=== PATIENT | male | born 1950 | race Caucasian/White ===

== ENCOUNTER 2018-05-01 11:26 | Inpatient (IN) | payer MEDICARE, OTHER ==
[~2018-05-01] VITALS: Ht 170.2 cm; Wt 70.5 kg
[2018-05-01] MEDS ORDERED: SODIUM CHLORIDE 0.9% 1L BAG IV* STA (11:53)
[2018-05-01] MEDS ORDERED: ACETAMINOPHEN 325 MG TAB PO ONE (12:00)
[2018-05-01] MEDS ORDERED: SOD CHLORIDE 0.9% 0 ML IV ONE (12:10)
--- NOTE | 2018-05-01 12:15 | ERD ---
ER Documentation Chief Complaint Chief Complaint BIB RA FOR EVAL LOW O2 SAT AFTER HD. 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 During dialysis, the patient's temperature was found to be at 103 F. His O2 saturation was reportedly at 84% on room air. The patient's primary care physician was called who recommended transfer to the hospital. The patient is currently alert and oriented x1. He is typically fully oriented. The patient does not endorse any complaints at this time, but history and physical is limited secondary to altered mentation. ROS Review of systems limited secondary to altered mentation Medications Home Meds Reported Medications Polyvinyl Alcohol (Tears Again) 15 Ml Drops, 15 ML OP DAILY PRN for DRY EYES, BOTTLE 05/01/18 Ondansetron Hcl* (Zofran*) 4 Mg Tab, 4 MG PO Q6H PRN for NAUSEA AND OR VOMITING, TAB 05/01/18 Ascorbic Acid* (Vitamin C*) 500 Mg Capsule.sa, 500 MG PO DAILY, CAP 05/01/18 Acetaminophen* (Acetaminophen*) 500 MG Extra Strength Tablet, 1000 MG PO Q4H PRN for MILD PAIN(1-3)OR ELEVATED TEMP, TAB 05/01/18 Acetaminophen* (Acetaminophen*) 325 Mg Tablet, 325 MG PO Q4H PRN for PAIN AND OR ELEVATED TEMP, #30 TAB 05/01/18 Levothyroxine Sodium* (Levoxyl*) 50 Mcg Tablet, 50 MCG PO BEFORE BREAKFAST, #30 TAB 05/01/18 Sevelamer Carbonate* (Renvela*) 800 Mg Tablet, 0.8 GM PO WITH MEALS, TAB 05/01/18 Multivitamins* (Theragran*) 1 Tab Tab, 1 TAB PO DAILY, TAB 05/01/18 Atorvastatin Calcium* (Atorvastatin Calcium*) 20 Mg Tablet, 20 MG PO QHS, #30 TAB 05/01/18 Lisinopril* (Lisinopril*) 20 Mg Tablet, 20 MG PO DAILY for MON,WED,SAT,SUN., #30 TAB 05/01/18 Atorvastatin Calcium* (Atorvastatin Calcium*) 20 Mg Tablet, 20 MG PO QHS, #30 TAB 05/01/18 Insulin Glargine* (Lantus*) 100 Unit/Ml Soln, 10 UNIT SC QHS, #1 VIAL 05/01/18 Ferrous Sulfate* (Ferrous Sulfate*) 325 Mg Tabec, 325 MG PO DAILY, TAB 05/01/18 Cranberry Extract (Cranberry) 425 Mg Capsule, 425 MG PO DAILY, CAP 05/01/18 Carvedilol* (Coreg*) 6.25 Mg Tablet, 6.25 MG PO BID for TUE,GUERO,SAT, #60 TAB 05/01/18 Docusate Sodium* (Docusate Sodium*) 100 Mg Capsule, 200 MG PO HS, #60 CAP 05/01/18 Cyanocobalamin/FA/Pyridoxine (B Complex-Folic Acid Tablet) 1 Each Tablet, 1 TAB PO DAILY, TAB 05/01/18 Aspirin* (Aspirin* Chew) 81 Mg Tab.chew, 81 MG PO DAILY, TAB.CHEW 05/01/18 Allergies Allergies: Coded Allergies: No Known Allergy (Unverified , 05/01/18) PMhx/Soc History of Surgery: Yes (R BKA, CABG) Anesthesia Reaction: No Hx Neurological Disorder: No Hx Cardiac Disorders: Yes (Tension, hyperlipidemia, diabetes, CAD with previous [place] sp CABG) Hx Miscellaneous Medical Probl: Yes (ESRD on HD, R BKA) FmHx Family History: diabetes Physical Exam Vitals Vital Signs Date Temp Pulse Resp B/P (MAP) Pulse Ox O2 O2 Flow FiO2 Time Delivery Rate 05/01/18 98.4 76 20 98/34 (55) 100 Nasal 2.0 16:01 Cannula 05/01/18 2.0 15:55 05/01/18 Nasal 2 13:03 Cannula 05/01/18 100.4 80 20 90/20 (43) 96 11:39 Physical Exam Const: No apparent distress, well-developed, well-nourished Head: Normocephalic, Atraumatic Eyes: Normal Conjunctiva. Extraocular movements intact. Pupils equal, round and reactive to light ENT: Normal External Ears, Nose and Mouth. Neck: Full range of motion. No meningismus. Resp: Bibasilar rales. No wheezes. No respiratory distress. Cardio: Regular rate and rhythm. No murmurs, rubs or gallops. Right chest tunneled dialysis catheter without erythema or induration or purulence or fluctuance. Abd: Soft, non tender, non distended. Normal bowel sounds Skin: No petechiae or rashes Back: No midline tenderness. No CVA tenderness Ext: No cyanosis, or edema. Right BKA. Neur: Awake and alert, oriented 1. Cranial nerves intact. No facial droop. Normal strength, sensation and coordination. Result Diagram: 05/01/18 1147 05/01/18 1147 Results 24 hrs Laboratory Tests Test 05/01/18 11:47 05/01/18 12:11 White Blood Count 10.4 10^3/ul Red Blood Count 2.01 10^6/ul Hemoglobin 6.8 g/dl Hematocrit 20.0 % Mean Corpuscular Volume 99.5 fl Mean Corpuscular Hemoglobin 33.8 pg Mean Corpuscular Hemoglobin Concent 34.0 g/dl Red Cell Distribution Width 16.5 % Platelet Count 133 10^3/UL Mean Platelet Volume 9.8 fl Immature Granulocytes % 1.900 % Neutrophils % 87.7 % Segmented Neutrophils % (Manual) 69 % Band Neutrophils % (Manual) 23 % Lymphocytes % 5.8 % Lymphocytes % (Manual) 5 % Reactive Lymphocytes % (Manual) 1 % Monocytes % 4.3 % Monocytes % (Manual) 2 % Eosinophils % 0.2 % Basophils % 0.1 % Nucleated Red Blood Cells % 0.0 /100WBC Immature Granulocytes # 0.200 10^3/ul Neutrophils # 9.1 10^3/ul Neutrophils # (Manual) 7.4 10^3/ul Band Neutrophils # 2.3 10^3/ul Lymphocytes (Manual) 0.5 10^3/ul Lymphocytes # 0.6 10^3/ul Reactive Lymphocytes # 0.1 10^3/ul Monocytes # 0.5 10^3/ul Monocytes # (Manual) 0.2 10^3/ul Eosinophils # 0.0 10^3/ul Basophils # 0.0 10^3/ul Nucleated Red Blood Cells # 0.0 10^3/ul Pathologist Review (Hematology) Platelet Estimate NORMAL Polychromasia 2+ Hypochromasia 1+ Anisocytosis 2+ Microcytosis 2+ Prothrombin Time 14.8 Sec Prothrombin Time Ratio 1.2 INR International Normalized Ratio 1.15 Activated Partial Thromboplast Time 32.6 Sec Path Consult Signing Pathologist FARIDEH JOSEPH MD Sodium Level 138 mmol/L Potassium Level 3.2 mmol/L Chloride Level 91 mmol/L Carbon Dioxide Level 32 mmol/L Anion Gap 15 Blood Urea Nitrogen 41 mg/dl Creatinine 5.30 mg/dl Est Glomerular Filtrat Rate mL/min 11 mL/min Glucose Level 102 mg/dl Calcium Level 9.3 mg/dl Total Bilirubin 0.4 mg/dl Direct Bilirubin 0.00 mg/dl Indirect Bilirubin 0.4 mg/dl Aspartate Amino Transf (AST/SGOT) 20 IU/L Alanine Aminotransferase (ALT/SGPT) 37 IU/L Alkaline Phosphatase 202 IU/L Troponin I 1.520 ng/ml Total Protein 8.0 g/dl Albumin 4.4 g/dl Globulin 3.60 g/dl Albumin/Globulin Ratio 1.22 POC Venous Lactate 1.6 mmol/L Current Medications Medications Dose Sig/Jennifer Start Time Status Last (Trade) Ordered Route PRN Stop Time Admin Dose Reason Admin Sodium 2,100 ml BOLUS OVER 2 05/01/18 DC 05/01/18 Chloride HOURS STAT 11:53 05/01/18 12:15 (NS) IV* 11:55 650 mg ONCE ONCE 05/01/18 DC 05/01/18 Acetaminophen PO 12:00 05/01/18 12:16 (Tylenol 12:01 Tab) Sodium 0 ml @ 0 Q0M ONCE 05/01/18 DC 05/01/18 Chloride mls/hr IV 12:10 05/01/18 12:10 12:18 Vancomycin 250 ml @ ONCE ONCE 05/01/18 DC 05/01/18 HCl 125 mls/hr IVPB 13:00 05/01/18 13:32 14:59 Cefepime HCl 50 ml @ ONCE ONCE 05/01/18 DC 05/01/18 100 mls/hr IVPB 12:30 05/01/18 12:34 12:59 IV Flush 10 ml STK-MED 05/01/18 DC 05/01/18 (NS 10 ml) ONCE .ROUTE 13:03 05/01/18 13:26 13:04 Sodium 100 ml @ ud STK-MED 05/01/18 DC 05/01/18 Chloride ONCE .ROUTE 13:03 3/7/19 13:26 13:04 Iodixanol 100 ml STK-MED 05/01/18 DC 05/01/18 (Visipaque ONCE .ROUTE 13:03 05/01/18 13:26 Locm) 13:04 Ondansetron 4 mg ER BRIDGE 05/01/18 HCl (Zofran PRN IV 14:00 05/02/18 Inj) NAUSEA/VOMITI 13:59 NG 650 mg ER BRIDGE 05/01/18 Acetaminophen PRN PO 14:00 05/02/18 (Tylenol .MILD PAIN 13:59 Tab) 1-3 OR TEMP IV Flush 3 ml PER 05/01/18 (NS 3 ml) PROTOCOL IV 16:00 Procedures/MDM MDM The patient's presentation warrants further investigation. Previous medical records, if available, were reviewed. LABS The patient's laboratory testing was obtained and reviewed. No emergent treatment was required unless described below. CBC: No leukocytosis, but significant bandemia, concerning for an infection. Normocytic anemia requiring transfusion. Thrombocytopenia. Chemistry: No E/o severe acidosis or liver disease or diabetic ketoacidosis. Metabolic alkalosis likely related to his end-stage renal disease. PT/INR: No E/o significant coagulopathy Lactate: No E/o severe sepsis Troponin: Elevated, though this is in the setting of end-stage renal disease Urine: Not sent due to end-stage renal disease Cultures: Sent EKG EKG read by me: Rate/Rhythm: Regular rate and rhythm at a rate of 80 bpm Intervals: Normal QRS. QT interval is less than 50% of the RR interval. Nonspecific intraventricular block with a slightly widened QRS. [place]: Left shifted Impression: No evidence of acute ischemia or emergent arrhythmia. IMAGING Imaging and Radiology interpretation reviewed. CXR FINDINGS: The heart is enlarged. The thoracic aorta is calcified. The patient is status post sternotomy. There is a right-sided Perma-Cath in place. There is a left lower lobe infiltrate and atelectasis. There is no pleural effusion or pneumothorax. IMPRESSION: Mild cardiomegaly. Calcified aorta consistent with atherosclerotic disease. Left lower lobe infiltrate and atelectasis. Electronically viewed and signed by .Emeka Westbrook MD, MD on 05/01/2018 12:48 CTA Chest FINDINGS: The pulmonary arteries are normal with no filling defect or lack of enhancement to suggest pulmonary artery embolism. There is air space disease in the left lung base posteriorly and laterally consistent with atelectasis or pneumonia. The lungs are otherwise clear with no other airspace or interstitial disease. There is no pulmonary nodule or mass lesion. There is no pneumothorax. There is no mediastinal or hilar lymphadenopathy or mass. There is no pleural effusion. There is no pericardial effusion. The thoracic aorta is not dilated. There is calcification in the aorta consistent with atherosclerosis. The heart is enlarged. There is coronary artery calcification. There are sternal wires and mediastinal clips. There is a right internal jugular vein tunneled dialysis catheter with the tip in the cavoatrial junction. Images through the upper abdomen demonstrate normal visualized portions of the liver, spleen, and adrenals. The osseous structures are normal with no fracture or lytic lesion. IMPRESSION: 1. Normal CT pulmonary angiogram with no evidence of pulmonary artery embolism. 2. Atelectasis or pneumonia at the left lung base posteriorly and laterally. 3. Atherosclerosis. 4. Cardiomegaly. 5. Coronary artery calcification. 6. Previous median sternotomy. 7. Tunneled dialysis catheter in satisfactory position. 8. Otherwise unremarkable study. Electronically viewed and signed by Davide Garcia MD, on 05/01/2018 13:55 CT Head FINDINGS: There is no intracranial hemorrhage, mass effect, or midline shift. N o extra-axial fluid collection is seen. The ventricles and sulci are age appropriate. Mild diffuse volume loss is present. Subtle decreased attenuation is noted in the bilateral subcortical white matter, centrum semiovale and periventricular white matter compatible with mild chronic microvascular ischemic disease. Moderate vascular calcifications are present of the bilateral intracranial internal carotid arteries and the vertebral arteries. The visualized scalp and calvarium are normal. The bilateral orbits are normal. The bilateral paranasal sinuses, mastoid air cells and middle ear cavities are clear. IMPRESSION: No evidence of acute intracranial hemorrhage, infarcts, or acute intracranial pathology. Normal noncontrast head CT. Electronically viewed and signed by .Meli Owens MD, MD on 05/01/2018 13:34 TREATMENT/DISPOSITION The patient presents for fever, altered mentation, shortness of breath and hypoxia beginning this morning. Given his fever, a septic workup was completed. The patient does have a bandemia. He does meet criteria for a systemic inflammatory response syndrome and he does have findings concerning for a pneumonia, which meets criteria for sepsis. The patient's lactic acid is unremarkable. There is no evidence of endorgan damage. The patient does not meet criteria for severe sepsis. That said, IV fluids and antibiotics were initiated in this patient. The patient is on dialysis and is at risk for bacteremia. That said, I do have higher suspicion for pneumonia then I do bacteremia. The patient was also found to be anemic. The patient was transfused 1 unit of packed red blood cells emergently. The patient may be assessed for this further in the hospital. This could be related to his end-stage renal disease as well. The patient's mentation improved with IV fluid resuscitation and blood transfusion. I have very low suspicion for meningitis or encephalitis. There is no evidence of cerebral ischemia or intracranial hemorrhage on CT. The patient does have an elevated troponin, which can be assessed further in the hospital. The patient does not have symptoms concerning for acute coronary syndrome, and his EKG did not reveal findings of acute ischemia. I suspect that the patient's elevated troponin is related to his end-stage renal disease. The patient does have metabolic abnormalities including hypokalemia and a metab olic alkalosis. I suspect that this too is related to his end-stage renal disease and his dialysis sessions. Cardiology and nephrology will require consultation in the hospital. SEPSIS NOTE SIRS Criteria: Fever, bandemia Infectious source: Pneumonia End organ damage indicated by: None SEPSIS MANAGEMENT Time to recognize sepsis: Upon arrival. Time to recognize severe sepsis: No severe sepsis at this time. Time to recognize septic shock: No septic shock at this time. 3 HOUR BUNDLE Blood cultures x 2 before abx: Yes 30 ml/kg NS bolus completed Initial lactate 1.6 Repeat lactate not indicated SEPTIC SHOCK ASSESSMENT: NO lactic acid > 4.0 NO persistent hypotension (SBP < 90 or 40 mmHg drop, MAP < 65) despite 30 L/kg IV fluid bolus CRITICAL CARE NOTE Time: 34 minutes excluding all billable procedures. Treatments/Evaluations: The patient was at risk of hemodynamic compromise. Timing of critical care involved close serial monitoring, evaluation of the patient's medical record including previous records & current laboratory/imaging studies, potential interventions for prevention of hemodynamic/ cardiopulmonary/ neurologic compromise, maintaining tight fluid balance, and any discussions with the family and/or consultants regarding the patient's status and prognosis. ADMISSION At this time, I feel that the patient requires admission for further evaluation and management. The patient will be admitted to panel in accordance with the patient's insurance. The patient was accepted by Dr. Davies at 1:25 PM on May 01, 2018. Disclaimer: Inadvertent spelling and grammatical errors are likely due to EHR/dictation software use and do not reflect on the overall quality of patient care. Note that the electronic time recorded on this note does not necessarily r eflect the actual time of the patient encounter. Departure Diagnosis: Primary Impression: Sepsis Sepsis type: sepsis due to unspecified organism Qualified Codes: A41.9 - Sepsis, unspecified organism Additional Impressions: Fever Fever type: unspecified Qualified Codes: R50.9 - Fever, unspecified Altered mental status Altered mental status type: unspecified Qualified Codes: R41.82 - Altered mental status, unspecified Symptomatic anemia Thrombocytopenia Left lower lobe pneumonia Pneumonia type: due to unspecified organism Qualified Codes: J18.1 - Lobar pneumonia, unspecified organism Bandemia Metabolic alkalosis End stage renal disease on dialysis Hypokalemia Elevated troponin I level Condition: Serious MOLLY DOS SANTOS MD May 01, 2018 12:07
[2018-05-01] MEDS ORDERED: CEFEPIME 1GM/50 ML (PMX) 50 ML IVPB ONE (12:30)
[2018-05-01] MEDS ORDERED: ONDA4TAB13 PO (12:44)
[2018-05-01] MEDS ORDERED: ASPI-903 PO (12:44)
[2018-05-01] MEDS ORDERED: LANT3I SC (12:44)
[2018-05-01] MEDS ORDERED: ASCO500C7 PO (12:44)
[2018-05-01] MEDS ORDERED: LISI-471 PO (12:44)
[2018-05-01] MEDS ORDERED: ATOR20TA38 PO (12:44)
[2018-05-01] MEDS ORDERED: CARV6.25 PO (12:44)
[2018-05-01] MEDS ORDERED: ACET-141 PO (12:44)
[2018-05-01] MEDS ORDERED: MULTI PO (12:44)
[2018-05-01] MEDS ORDERED: FER325 PO (12:44)
[2018-05-01] MEDS ORDERED: LEVO50TA71 PO (12:44)
[2018-05-01] MEDS ORDERED: SEVE800T7 PO (12:44)
[2018-05-01] MEDS ORDERED: CYAN1TAB20 PO (12:44)
[2018-05-01] MEDS ORDERED: DOCU-159 PO (12:44)
[2018-05-01] MEDS ORDERED: ACET325T45 PO (12:44)
[2018-05-01] MEDS ORDERED: CRAN425C6 PO (12:44)
[2018-05-01] MEDS ORDERED: POLY15DR25 OP (12:45)
[2018-05-01] MEDS ORDERED: VANCOMYCIN 1 GM (PMX) 250 ML IVPB ONE (13:00)
[2018-05-01] MEDS ORDERED: IODIXANOL LOCM 100 ML BTL ONE (13:03)
[2018-05-01] MEDS ORDERED: SOD CHLORIDE 0.9% 100 ML ONE (13:03)
[2018-05-01] MEDS ORDERED: ONDANSETRON 4 MG INJ IV PRN (14:00)
[2018-05-01] MEDS ORDERED: ACETAMINOPHEN 325 MG TAB PO PRN (14:00)
--- NOTE | 2018-05-01 15:36 | HP ---
Date/Time of Note Date/Time of Note DATE: 05/01/18 TIME: 15:36 Assessment/Plan VTE Prophylaxis Pharmacological prophylaxis: NA/contraindicated Pharm contraindication: anticoag not tolerated Lines/Catheters IV [facility] Assessment/Plan Hospital Course 67-year-old male with comorbidities including end-stage renal disease on hemodialysis Tuesdays//Saturdays, hypertension, diabetes mellitus, an emia, prostatic hypertrophy, hypothyroidism, and CAD status post coronary artery bypass grafting. The patient was brought in from a intermediate facility because of fevers and diaphoresis with evidence of hypoxia at the intermediate facility. The patient was noticed to have elevated troponins, anemia, and left sided infiltrate on chest x-ray in the emergency room. The patient will be admitted to inpatient setting for further treatment and evaluation. 1. NSTEMI. -Etiology unclear. -Prior history of CAD. Unable to start aspirin because of underlying anemia. -Obtain cardiology consult -Trend troponins -Obtain 2D echocardiogram. 2. Healthcare associated pneumonia. -Continue antimicrobials 3. Acute respiratory failure. -Hypoxic -Most probably secondary to #2. -Continue supplemental oxygen. -Start inhaled bronchodilators. -CTA negative for any PE. 4. Normocytic anemia. -Etiology unclear. -Transfuse blood products. -Obtain stool for OB. -Obtain iron panel. 5. Acute encephalopathy. -Unknown baseline mental status -Most probably toxic metabolic in origin. -Brain CT scan negative. 6. End-stage renal disease on hemodialysis -Obtain nephrology consult. -May need hemodialysis since the patient got IV dye for CTA. 7. Diabetes mellitus. -Start the patient on sliding scale insulin along with pre-meal insulin basal insulin. -Obtain hemoglobin A1c to evaluate the blood glucose control over the past few weeks. 8. History of CAD. -Hold aspirin because of anemia. -Continue statins. -Cardiology follow-up. 9. Hypothyroidism. -Resume Synthroid. 10. Dyslipidemia. -Continue statins. 11. Hypertension. -Hold antihypertensives now since the patient is currently hypotensive. Plan: The patient will be admitted to inpatient telemetry floor. The patient will be started on a renal diet. The patient will be started on DVT prophylaxis (SCD on the left lower extremity ) and gastrointestinal prophylaxis. The patient will remain a full code. Activities will be bedrest. The rest of the patient's management will be based on the clinical course, inputs from consultants, and the results of diagnostic studies. Based on the patient's clinical presentation, he most probably requires at least 2 midnights' stay for further management and evaluation of his clinical pres entation. The patient was seen in collaboration with Dr. Davies. Result Diagram: 05/01/18 1147 05/01/18 1147 Results 24hrs Laboratory Tests Test 05/01/18 11:47 05/01/18 12:11 White Blood Count 10.4 Red Blood Count 2.01 L Hemoglobin 6.8 *L Hematocrit 20.0 L Mean Corpuscular Volume 99.5 Mean Corpuscular Hemoglobin 33.8 H Mean Corpuscular Hemoglobin Concent 34.0 Red Cell Distribution Width 16.5 H Platelet Count 133 L Mean Platelet Volume 9.8 Immature Granulocytes % 1.900 H Neutrophils % 87.7 H Segmented Neutrophils % (Manual) 69 Band Neutrophils % (Manual) 23 H Lymphocytes % 5.8 L Lymphocytes % (Manual) 5 L Reactive Lymphocytes % (Manual) 1 H Monocytes % 4.3 Monocytes % (Manual) 2 Eosinophils % 0.2 Basophils % 0.1 Nucleated Red Blood Cells % 0.0 Immature Granulocytes # 0.200 H Neutrophils # 9.1 H Neutrophils # (Manual) 7.4 Band Neutrophils # 2.3 H Lymphocytes (Manual) 0.5 L Lymphocytes # 0.6 L Reactive Lymphocytes # 0.1 H Monocytes # 0.5 Monocytes # (Manual) 0.2 L Eosinophils # 0.0 Basophils # 0.0 Nucleated Red Blood Cells # 0.0 Pathologist Review (Hematology) Platelet Estimate NORMAL Polychromasia 2+ Hypochromasia 1+ Anisocytosis 2+ Microcytosis 2+ Prothrombin Time 14.8 Prothrombin Time Ratio 1.2 INR International Normalized Ratio 1.15 Activated Partial Thromboplast Time 32.6 Path Consult Signing Pathologist FARIDEH JOSEPH MD Sodium Level 138 Potassium Level 3.2 L Chloride Level 91 L Carbon Dioxide Level 32 H Anion Gap 15 H Blood Urea Nitrogen 41 H Creatinine 5.30 H Est Glomerular Filtrat Rate mL/min 11 L Glucose Level 102 Calcium Level 9.3 Total Bilirubin 0.4 Direct Bilirubin 0.00 Indirect Bilirubin 0.4 Aspartate Amino Transf (AST/SGOT) 20 Alanine Aminotransferase (ALT/SGPT) 37 Alkaline Phosphatase 202 H Troponin I 1.520 *H Total Protein 8.0 Albumin 4.4 Globulin 3.60 H Albumin/Globulin Ratio 1.22 POC Venous Lactate 1.6 HPI/ROS Admit Date/Time Admit Date/Time Hx of Present Illness Reason for admission: Transferred from a intermediate facility because of febrile illness and hypoxia. Elevated troponins and anemia on ER workup. Consultants 1. René Garcia, , Cardiology. 2. Carson Davis DO, Nephrology. This is a 67-year-old male with comorbidities including hypertension, diabetes mellitus type 2, history of ESRD on hemodialysis, prostatic hypertrophy, hypothyroidism, and chronic anemia who went for scheduled hemodialysis today. The patient went back from the dialysis clinic to his SNF with fevers and diaphoresis. The patient had a recorded temperature of 103 F with oxygen saturation of 84% on room air with a blood pressure of 119/57 and pulse of 86. The patient's primary care physician was informed by the nursing staff and the nursing staff was instructed to take the patient to the nearest emergency room. The patient's baseline mental status is unclear. It was unable to elicit specific details from the patient. The patient denied any chest pain or dyspnea. The patient complained of feeling tired. The patient denied any upper or lower gastrointestinal bleeding. The patient complained of a productive cough that has been going on for 1 month. The patient denied any nausea, vomiting, abdominal pain, or diarrhea. In the emergency room, the patient was noticed to have a troponin level of 1.520. Patient did not have any underlying leukocytosis. The patient had bandemia. The patient had a temperature of 100.4. Patient's chest x-ray was showing left lower lobe infiltrate/atelectasis. The patient underwent a CT angiogram of the chest that was showing no evidence of any PE. However it showed atelectasis/pneumonia at the left lung base posteriorly and laterally. The patient's brain CT scan was negative for any acute findings. The patient was noticed to have anemia with a hemoglobin and hematocrit of 6.8 and 20.0 respectively. The patient was started on blood transfusion. The patient was treated with IV cefepime and vancomycin in the emergency room. ROS Subjective hx not possible: other (Patient not a good historian.) PMH/Family/Social Past Medical History 1. Type 2 diabetes mellitus. 2. CAD status post CABG. 3. End-stage renal disease on hemodialysis 4. Anemia. 5. Hypertension. 6. Diabetic foot ulcer. 7. Dyslipidemia. 8. Hypothyroidism. Medications Current Medications Ondansetron HCl (Zofran Inj) 4 mg ER BRIDGE PRN IV NAUSEA/VOMITING; Start 05/01/18 at 14:00; Stop 05/02/18 at 13:59 Acetaminophen (Tylenol Tab) 650 mg ER BRIDGE PRN PO .MILD PAIN 1-3 OR TEMP; Start 05/01/18 at 14:00; Stop 05/02/18 at 13:59 Coded Allergies: No Known Allergy (Unverified , 05/01/18) Past Surgical History 1. Coronary artery bypass grafting. 2. Right below-knee amputation Social History The patient is a long-term resident. Alcohol Use: none Smoking Status: Never smoker Drug Use: none Exam/Review of Systems Vital Signs Vitals Vital Signs Date Temp Pulse Resp B/P (MAP) Pulse Ox O2 O2 Flow FiO2 Time Delivery Rate 05/01/18 Nasal 2 13:03 Cannula 05/01/18 100.4 80 20 90/20 (43) 96 11:39 Exam Exam General: Adequately build 67 year-old male lying in bed in no apparent distress. HEENT: Normocephalic, atraumatic. Eyes: Anicteric sclerae, conjunctivae clear. ENT: Nasal septum is midline, oral mucosa is dry. Neck supple, no JVD noticed. Respiratory: Bilaterally diminished breath sounds. No use of accessory muscles o f respiration. No adventitious breath sounds. Cardiovascular: S1, S2 heard. Regular rate and rhythm. Abdomen: Soft, nontender, and nondistended. Bowel sounds positive in all 4 quadrants. Genitourinary: Deferred. Extremities: No cyanosis, no clubbing, no edema. Right lower extremity below- knee amputation. Neurologic: The patient is awake and alert. Oriented x1. Skin: Normal skin turgor. No skin rashes. YOSEF MILLER NP May 01, 2018 15:36
[2018-05-01] MEDS ORDERED: NACL 0.9% 3 ML SYG IV SCH (16:00)
--- NOTE | 2018-05-01 17:08 | CONS ---
Assessment/Plan Assessment/Plan Hospital Course (Demo Recall) SIRS Borderline hypotension Elevated troponin Acute blood loss anemia End-stage renal disease on hemodialysis Diabetes History of open heart surgery -Patient with not feeling well, febrile during hemodialysis. Patient found to be severely anemic, febrile with blood pressure on the lower side -We will continue with blood transfusion given hypotension and elevated troponin -No aspirin the current time given anemia, no beta-ralph given low blood pressure. Increase statin dose -Check serial cardiac enzymes, echocardiogram, telemetry monitoring. Consultation Date/Type/Reason Admit Date/Time Type of Consult Cardiology Reason for Consultation Elevated troponin Date/Time of Note DATE: 05/01/18 TIME: 16:55 Hx of Present Illness This is a 67-year-old male with past medical history of end-stage renal disease on hemodialysis, diabetes, open heart surgery was brought to the emergency room secondary to diaphoresis, fever and not feeling well during hemodialysis. His tory is obtained from medical chart. When patient asked why is he here, he tells me he was not feeling well. He is feeling better now. He denies any chest pain, shortness of breath, palpitations, dizziness. Denies any abdominal pain or cough. 12 point review of systems was performed with all pertinent positives and negatives mentioned above and all else is negative Past Medical History Medical History: diabetes, hypertension, renal disease Home Meds Reported Medications Polyvinyl Alcohol (Tears Again) 15 Ml Drops, 15 ML OP DAILY PRN for DRY EYES, BOTTLE 05/01/18 Ondansetron Hcl* (Zofran*) 4 Mg Tab, 4 MG PO Q6H PRN for NAUSEA AND OR VOMITING, TAB 05/01/18 Ascorbic Acid* (Vitamin C*) 500 Mg Capsule.sa, 500 MG PO DAILY, CAP 05/01/18 Acetaminophen* (Acetaminophen*) 500 MG Extra Strength Tablet, 1000 MG PO Q4H PRN for MILD PAIN(1-3)OR ELEVATED TEMP, TAB 05/01/18 Acetaminophen* (Acetaminophen*) 325 Mg Tablet, 325 MG PO Q4H PRN for PAIN AND OR ELEVATED TEMP, #30 TAB 05/01/18 Levothyroxine Sodium* (Levoxyl*) 50 Mcg Tablet, 50 MCG PO BEFORE BREAKFAST, #30 TAB 05/01/18 Sevelamer Carbonate* (Renvela*) 800 Mg Tablet, 0.8 GM PO WITH MEALS, TAB 05/01/18 Multivitamins* (Theragran*) 1 Tab Tab, 1 TAB PO DAILY, TAB 05/01/18 Atorvastatin Calcium* (Atorvastatin Calcium*) 20 Mg Tablet, 20 MG PO QHS, #30 TAB 05/01/18 Lisinopril* (Lisinopril*) 20 Mg Tablet, 20 MG PO DAILY for MON,WED,FRI,SUN., #30 TAB 05/01/18 Atorvastatin Calcium* (Atorvastatin Calcium*) 20 Mg Tablet, 20 MG PO QHS, #30 TAB 05/01/18 Insulin Glargine* (Lantus*) 100 Unit/Ml Soln, 10 UNIT SC QHS, #1 VIAL 05/01/18 Ferrous Sulfate* (Ferrous Sulfate*) 325 Mg Tabec, 325 MG PO DAILY, TAB 05/01/18 Cranberry Extract (Cranberry) 425 Mg Capsule, 425 MG PO DAILY, CAP 05/01/18 Carvedilol* (Coreg*) 6.25 Mg Tablet, 6.25 MG PO BID for TUE,GUERO,SAT, #60 TAB 05/01/18 Docusate Sodium* (Docusate Sodium*) 100 Mg Capsule, 200 MG PO HS, #60 CAP 05/01/18 Cyanocobalamin/FA/Pyridoxine (B Complex-Folic Acid Tablet) 1 Each Tablet, 1 TAB PO DAILY, TAB 05/01/18 Aspirin* (Aspirin* Chew) 81 Mg Tab.chew, 81 MG PO DAILY, TAB.CHEW 05/01/18 Medications Current Medications Ondansetron HCl (Zofran Inj) 4 mg ER BRIDGE PRN IV NAUSEA/VOMITING; Start 05/01/18 at 14:00; Stop 05/02/18 at 13:59 Acetaminophen (Tylenol Tab) 650 mg ER BRIDGE PRN PO .MILD PAIN 1-3 OR TEMP; Start 05/01/18 at 14:00; Stop 05/02/18 at 13:59 IV Flush (NS 3 ml) 3 ml PER PROTOCOL IV ; Start 05/01/18 at 16:00 Levalbuterol (Xopenex Neb) 0.63 mg Q6H RESP THERAPY HHN ; Start 05/01/18 at 20:00; Status UNV Miscellaneous Information (* Miscellaneous Pharmacy Order) Discontinue current oral sulfonylur... ONCE ONCE XX ; Start 05/01/18 at 16:30; Stop 05/01/18 at 16:31; Status UNV Miscellaneous Information (* Miscellaneous Pharmacy Order) HYPOGLYCEMIA PROTOCOL w... ONCE ONCE XX ; Start 05/01/18 at 16:30; Stop 05/01/18 at 16:31; Status UNV Insulin Aspart (Novolog Insulin Pen) NOVOLOG *MILD* ALGORITHM WITH MEALS BEDTIME SC ; Start 05/01/18 at 18:00; Status UNV Miscellaneous Information (* Miscellaneous Pharmacy Order) Discontinue all previ... ONCE ONCE XX ; Start 05/01/18 at 16:30; Stop 05/01/18 at 16:31; Status UNV Ascorbic Acid (Vitamin C) 500 mg DAILY PO ; Start 05/02/18 at 09:00; Status UNV Atorvastatin Calcium (Lipitor) 20 mg QHS PO ; Start 05/01/18 at 21:00; Status UNV Docusate Sodium (Colace) 200 mg HS PO ; Start 05/01/18 at 21:00; Status UNV Ferrous Sulfate (Ferrous Sulfate (Ec)) 325 mg DAILY PO ; Start 05/02/18 at 09:00; Status UNV Levothyroxine Sodium (Synthroid) 50 mcg BEFORE BREAKFAST PO ; Start 05/02/18 at 07:00; Status UNV Multivitamins Therapeutic (Theragran) 1 tab DAILY PO ; Start 05/02/18 at 09:00; Status UNV Sevelamer Carbonate (Renvela) 0.8 gm WITH MEALS PO ; Start 05/01/18 at 18:00; Status UNV Allergies: Coded Allergies: No Known Allergy (Unverified , 05/01/18) Past Surgical History Past Surgical Hx: other (Open heart surgery, lower extremity amputation) Social History Alcohol Use: none Smoking Status: Never smoker Drug Use: none Exam/Review of Systems Vital Signs Vitals Vital Signs Date Temp Pulse Resp B/P (MAP) Pulse Ox O2 O2 Flow FiO2 Time Delivery Rate 05/01/18 98.3 75 20 92/41 (58) 100 Nasal 2.0 16:48 Cannula Exam Exam Able to answer questions difficulty with history. No apparent distress, receiving blood transfusion in the emergency room Constitutional: alert Head: normocephalic Respiratory: other (Coarse breath sounds bilaterally, no wheezing) Cardiovascular: regular rate and rhythm (S1-S2 heard) Gastrointestinal: soft, non-tender, bowel sounds Extremities: other (Lower extremity amputation) Labs Result Diagram: 05/01/18 1147 05/01/18 1147 Results 24hrs Laboratory Tests Test 05/01/18 11:47 05/01/18 12:11 05/01/18 16:20 05/01/18 16:26 White Blood Count 10.4 Red Blood Count 2.01 L Hemoglobin 6.8 *L Hematocrit 20.0 L Mean Corpuscular 99.5 Volume Mean Corpuscular 33.8 H Hemoglobin Mean Corpuscular 34.0 Hemoglobin Concent Red Cell 16.5 H Distribution Width Platelet Count 133 L Mean Platelet 9.8 Volume Immature 1.900 H Granulocytes % Neutrophils % 87.7 H Segmented 69 Neutrophils % (Manual) Band Neutrophils % 23 H (Manual) Lymphocytes % 5.8 L Lymphocytes % 5 L (Manual) Reactive 1 H Lymphocytes % (Manual) Monocytes % 4.3 Monocytes % 2 (Manual) Eosinophils % 0.2 Basophils % 0.1 Nucleated Red 0.0 Blood Cells % Immature 0.200 H Granulocytes # Neutrophils # 9.1 H Neutrophils # 7.4 (Manual) Band Neutrophils # 2.3 H Lymphocytes 0.5 L (Manual) Lymphocytes # 0.6 L Reactive 0.1 H Lymphocytes # Monocytes # 0.5 Monocytes # 0.2 L (Manual) Eosinophils # 0.0 Basophils # 0.0 Nucleated Red 0.0 Blood Cells # Pathologist Review (Hematology ) Platelet Estimate NORMAL Polychromasia 2+ Hypochromasia 1+ Anisocytosis 2+ Microcytosis 2+ Prothrombin Time 14.8 Prothrombin Time 1.2 Ratio INR International 1.15 Normalized Ratio Activated 32.[address] Time Path Consult FARIDEH JOSEPH Signing Pathologis MD person Sodium Level 138 Potassium Level 3.2 L Chloride Level 91 L Carbon Dioxide 32 H Level Anion Gap 15 H Blood Urea 41 H Nitrogen Creatinine 5.30 H Est Glomerular 11 L Filtrat Rate mL/min Glucose Level 102 Calcium Level 9.3 Total Bilirubin 0.4 Direct Bilirubin 0.00 Indirect Bilirubin 0.4 Aspartate Amino 20 Transf (AST/SGOT) Alanine 37 Aminotransferase ( ALT/SGPT) Alkaline 202 H Phosphatase Troponin I 1.520 *H Total Protein 8.0 Albumin 4.4 Globulin 3.60 H Albumin/Globulin 1.22 Ratio POC Venous Lactate 1.6 1.5 Hemoglobin A1c 6.8 H Imaging Imaging ECG demonstrates sinus rhythm 80 bpm, QRS 128 ms with nonspecific intraventricular conduction delay, nonspecific ST abnormalities Medications Medications Current Medications Ondansetron HCl (Zofran Inj) 4 mg ER BRIDGE PRN IV NAUSEA/VOMITING; Start 05/01/18 at 14:00; Stop 05/02/18 at 13:59 Acetaminophen (Tylenol Tab) 650 mg ER BRIDGE PRN PO .MILD PAIN 1-3 OR TEMP; Start 05/01/18 at 14:00; Stop 05/02/18 at 13:59 IV Flush (NS 3 ml) 3 ml PER PROTOCOL IV ; Start 05/01/18 at 16:00 Levalbuterol (Xopenex Neb) 0.63 mg Q6H RESP THERAPY HHN ; Start 05/01/18 at 20:00; Status UNV Miscellaneous Information (* Miscellaneous Pharmacy Order) Discontinue current oral sulfonylur... ONCE ONCE XX ; Start 05/01/18 at 16:30; Stop 05/01/18 at 16:31; Status UNV Miscellaneous Information (* Miscellaneous Pharmacy Order) HYPOGLYCEMIA PROTOCOL w... ONCE ONCE XX ; Start 05/01/18 at 16:30; Stop 05/01/18 at 16:31; Status UNV Insulin Aspart (Novolog Insulin Pen) NOVOLOG *MILD* ALGORITHM WITH MEALS BEDTIME SC ; Start 05/01/18 at 18:00; Status UNV Miscellaneous Information (* Miscellaneous Pharmacy Order) Discontinue all previ... ONCE ONCE XX ; Start 05/01/18 at 16:30; Stop 05/01/18 at 16:31; Status UNV Ascorbic Acid (Vitamin C) 500 mg DAILY PO ; Start 05/02/18 at 09:00; Status UNV Atorvastatin Calcium (Lipitor) 20 mg QHS PO ; Start 05/01/18 at 21:00; Status UNV Docusate Sodium (Colace) 200 mg HS PO ; Start 05/01/18 at 21:00; Status UNV Ferrous Sulfate (Ferrous Sulfate (Ec)) 325 mg DAILY PO ; Start 05/02/18 at 09:00; Status UNV Levothyroxine Sodium (Synthroid) 50 mcg BEFORE BREAKFAST PO ; Start 05/02/18 at 07:00; Status UNV Multivitamins Therapeutic (Theragran) 1 tab DAILY PO ; Start 05/02/18 at 09:00; Status UNV Sevelamer Carbonate (Renvela) 0.8 gm WITH MEALS PO ; Start 05/01/18 at 18:00; Status UNV René Garcia DO May 01, 2018 17:05
[2018-05-01] MEDS ORDERED: POTASSIUM CHLORIDE (SR) 20 MEQ TAB PO STA (17:17)
[2018-05-01] MEDS ORDERED: EPOETIN 10000 UNITS/1 ML INJ (ESRD) SC ONE (17:30)
[2018-05-01 18:00] VITALS: PULSE 72
[2018-05-01] MEDS: INSULIN ASPART [NOVOLOG] 3 ML PEN SC SCH ×2 (18:00→20:54)
--- NOTE | 2018-05-01 18:06 | CONS ---
DATE OF ADMISSION: 05/01/2018 DATE OF CONSULTATION: 05/01/2018 REASON FOR CONSULTATION: End-stage renal disease. REQUESTING PHYSICIAN: Dr. Ballesteros and nurse practitioner, Andrew Reyna. HISTORY OF PRESENT ILLNESS: This is a 63-year-old male with a past medical history of end-stage caitlyn l disease on dialysis Saturday, , Saturday with access Perm-A-Cath, history of hypertension, d iabetes, anemia, BPH, coronary artery disease, status post coronary artery bypass graft, who presents to [facility] emergency room from his nursing facility due to being very diaphoretic and hy poxemic. The patient upon arrival to emergency room had a chest x-ray which showed evidence of a lef t-sided infiltrate. The patient was started on IV antibiotics in the emergency room. The patient al so noted to have elevated troponin of 1.5 and a hemoglobin of 6.8. 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 The patient states that he did have hemodialysis today. There are no reports of any he moptysis, hematemesis, hematochezia. PAST MEDICAL HISTORY: History of end-stage renal disease, history of anemia, history of mineral bone disorder, history of coronary dyslipidemia, diabetes, BPH. PAST SURGICAL HISTORY: Status post PermCath placement, status post CABG, status post right below kne e amputation. FAMILY HISTORY: No family history of kidney disease. SOCIAL HISTORY: Does not drink, smoke, do drugs. MEDICATIONS: The patient's medications have been reviewed. REVIEW OF SYSTEMS: A 14-point review of systems conducted. Pertinent positives stated in HPI, other de leon, negative. PHYSICAL EXAMINATION: VITAL SIGNS: Blood pressure is 11/36, respiratory rate 20, pulse 71, temperature 98.2. HEENT: Head is normocephalic. NECK: Supple. HEART: Regular rate. LUNGS: Show diminished breath sounds at base. ABDOMEN: Soft, nontender to palpation without rebound or guarding. EXTREMITIES: Negative for clubbing, cyanosis. Positive right below knee amputation. DERMATOLOGIC: No rashes. MUSCULOSKELETAL: No joint effusions. NEUROLOGIC: Limited exam, but no obvious focal deficits. LABORATORY DATA: Shows sodium 133 4.2, chloride 91, bicarbonate 32, BUN 41, creatinine 5.30, hemoglo bin A1c 6.8. White count 10.4, hemoglobin of 6.8, platelet count is 133. IMAGING STUDIES: The patient's chest x-ray shows left lower lobe infiltrate. A CT angio shows a pos sible pneumonia, left base; cardiomegaly; history of sternotomy dialysis catheter. No evidence of PE . ASSESSMENT AND PLAN: This is a 67-year-old male with: 1. End-stage renal disease. The patient is on dialysis Saturday, , Saturday with access Perm -A-Cath. The patient's last hemodialysis was today. Plan is for hemodialysis possibly tomorrow, Sat . We will monitor closely. 2. Anemia. The patient's hemoglobin 6.8. Plan is to give the patient Epogen. We will check an iro n panel. 3. Mineral bone disorder, monitor calcium and phosphorus levels. 4. Hypokalemia. We will replete with potassium chloride. 5. Acute hypoxic respiratory failure, etiology secondary to pneumonia and sepsis. Continue current medical management. Continue supplemental oxygen and bronchodilators. 6. Sepsis, etiology may be secondary to pneumonia. Continue current antibiotic regimen. 7. Elevated troponin, possible non-ST elevation myocardial infarction type 1 versus type 2. We will check serial troponins. Check a 2D echo. Continue medical management. Follow up with cardiology. 8. Acute encephalopathy, etiology is toxic metabolic. Continue to monitor. 9. Diabetes. Continue current insulin regimen. 10. History of coronary artery disease. Continue medical management. 11. Hypothyroidism. Continue Synthroid. 12. Dyslipidemia. Continue ____ therapy. 13. Hypertension. Continue to monitor. Thank you, Andrew, for this interesting consult. It will be a pleasure to follow patient with you t diannaout the hospital course. Dictated By: DANISHA PARIS DO NR/NTS Conf#: [id number] DID#: [id number]
[2018-05-01 18:11] VITALS: BP 105/68; PULSE 85; RESP 20; Ht 170.2 cm; Wt 70.5 kg
--- NOTE | 2018-05-01 18:14 | RADRPT ---
Echocardiogram Report Patient Name: LOLITA VALENZUELAPatient ID: [id number] : 1950 (67y 8m)Study Date: 05/01/2018 3:12:48 PM Gender: MAccession #: [id number] Tech: Manuelito Major RDCS Location: [facility] Ref.Physician: RENÉ GARCIA Height(Cm): BSA: Weight(Kg): Quality: AdequateAccount #: Procedures: Echocardiographic Report: Transthoracic echocardiogram with complete 2D, M-Mode, and doppler examination. Indications: elevated BNP, and Syncope. Measurements: 2D/M Mode Doppler Measurement Value Normal Range Measurement Value Normal Range LVIDd 2D 5.2 [ 4.2 - 5.8 ] cm AV Peak Marcello 1.4 [ 100.0 - 170.0 ] cm/sec LVIDs 2D 4.4 [ 2.5 - 4.0 ] cm AV Peak PG 8.0 [ 2.0 - 9.0 ] mmHg LVPWd 2D 1.0 [ 0.6 - 1.0 ] cm LVOT Peak Marcello 0.9 [ 70.0 - 110.0 ] cm/sec IVSd 2D 1.0 [ 0.6 - 1.0 ] cm LVOT Peak PG 3.0 [ 2.0 - 6.0 ] mmHg AoR Diam 2D 3.4 [ 2.6 - 3.4 ] cm MV E Peak Marcello 1.3 [ 60.0 - 130.0 ] cm/sec EDV 2D 130.0 [ 62.0 - 150.0 ] ml MV A Peak Marcello 0.6 [ 100.0 - 120.0 ] cm/sec ESV 2D 89.1 [ 21.0 - 61.0 ] ml MV E/A 2.1 [ 0.8 - 1.5 ] ratio EF 2D 31.5 [ 52.0 - 72.0 ] percent MV Decel Time 155 [ 104 - 258 ] msec LA Dimen 2D 4.9 [ 3.0 - 4.0 ] cm Lat E` Marcello 0.1 [ 10.0 - 15.0 ] cm/sec Lateral E/E` 19.9 [ 1.0 - 2.0 ] ratio MV E/A 2.1 [ 0.8 - 1.5 ] ratio TR Peak Marcello 3.3 [ 100.0 - 280.0 ] cm/sec TR Peak PG 43.0 mmHg RVSP 51.0 [ 10.0 - 36.0 ] mmHg RA Pressure 8.0 mmHg Findings: Left Ventricle: Normal left ventricular systolic function. Normal left ventricular cavity size. Mild concentric left ventricular hypertrophy. Ejection fraction is visually estimated at 55 %. Tissue Doppler/Mitral Doppler indices are consistent with pseudonormalization with mildly elevated left atrial pressure (Stage II diastolic dysfunction). Right Ventricle: Normal right ventricular size. Normal right ventricular systolic function. Left Atrium: There is moderate enlargement of left atrium. Right Atrium: The right atrium is normal in size. Mitral Valve: Mitral valve leaflets appear mildly thickened. Mild mitral annular calcification. Mild mitral valve regurgitation. Aortic Valve: No significant aortic stenosis or insufficiency. Aortic cusps appear mildly calcified. Tricuspid Valve: Normal appearance of the tricuspid valve. Estimated peak PA systolic pressure 51 mmHg. There is mild tricuspid regurgitation. Pulmonic Valve: Normal pulmonic valve appearance. Pericardium: Normal pericardium with no significant pericardial effusion. Aorta: Normal aortic root. IVC: Dilated IVC with respiratory collapse consistent with elevated right atrial pressure. Conclusions: Normal left ventricular systolic function. Normal left ventricular cavity size. Mild concentric left ventricular hypertrophy. Ejection fraction is visually estimated at 55 %. Tissue Doppler/Mitral Doppler indices are consistent with pseudonormalization with mildly elevated left atrial pressure (Stage II diastolic dysfunction). Normal right ventricular size. Normal right ventricular systolic function. There is moderate enlargement of left atrium. The right atrium is normal in size. Mild mitral valve regurgitation. No significant aortic stenosis or insufficiency. Estimated peak PA systolic pressure 51 mmHg. There is mild tricuspid regurgitation. Normal pericardium with no significant pericardial effusion. Electronically Signed By: René Garcia 2018-05-01 18:13:12 PST
[2018-05-01 19:57] VITALS: BP 87/42; PULSE 74; RESP 19
[2018-05-01 20:00] VITALS: PULSE 67
[2018-05-01] MEDS: LEVALBUTEROL (NEB) 0.63 MG/3 ML AMP HHN SCH (20:07)
[2018-05-01] MEDS: DOCUSATE SODIUM 100 MG CAP PO SCH (20:55)
[2018-05-01] MEDS: SEVELAMER CARBONATE 0.8 GM PKT PO SCH (20:55)
[2018-05-01] MEDS: ATORVASTATIN 40 MG TAB PO SCH (20:56)
[2018-05-01] MEDS ORDERED: ATORVASTATIN 20 MG TAB PO SCH (21:00)
[2018-05-01 23:46] VITALS: BP 86/44; PULSE 66; RESP 17
[2018-05-02] VITALS (27 sets, daily range): BP systolic 92–164; BP diastolic 35–81; PULSE 61–82; RESP 17–20
[2018-05-02] MEDS: LEVALBUTEROL (NEB) 0.63 MG/3 ML AMP HHN SCH ×4 (01:57→19:25)
[2018-05-02] MEDS: LEVOTHYROXINE 50 MCG TAB PO SCH (06:44)
[2018-05-02] MEDS ORDERED: VANCOMYCIN IV PER PHARMACY XX SCH (07:30)
[2018-05-02] MEDS: INSULIN ASPART [NOVOLOG] 3 ML PEN SC SCH ×4 (08:00→20:35)
[2018-05-02] MEDS: MULTIVITAMINS THERAPEUTIC TAB PO SCH (08:23)
[2018-05-02] MEDS: ASCORBIC ACID 500 MG TAB PO SCH (08:23)
[2018-05-02] MEDS: FERROUS SULFATE (EC) 325 MG TAB PO SCH (08:23)
[2018-05-02] MEDS: SEVELAMER CARBONATE 0.8 GM PKT PO SCH ×3 (08:24→18:00)
--- NOTE | 2018-05-02 09:55 | PN ---
DATE: 05/02/2018 SUBJECTIVE: The patient is stable, no events overnight. No fever, chills, nausea or vomiting. OBJECTIVE: VITAL SIGNS: Blood pressure is 92/50, respirations 18, pulse 74, temperature 98.2. HEENT: Head is normocephalic. NECK: Supple. HEART: Regular rate. LUNGS: Show diminished breath sounds at the base. ABDOMEN: Soft, nontender to palpation without rebound or guarding. EXTREMITIES: Negative for clubbing, cyanosis, no edema, positive BKA. DERMATOLOGIC: No rashes. MUSCULOSKELETAL: No joint effusion. NEUROLOGIC: No change in exam. MEDICATIONS: Reviewed. LABORATORY DATA: From 05/02/2018 was reviewed. The patient has a hemoglobin of 6.6, platelet count is 114. ASSESSMENT AND PLAN: 1. End-stage renal disease. The patient is on dialysis Saturday, , Saturday, last hemodialys is was . Plan is for hemodialysis tomorrow. 2. Anemia. Continue to monitor hemoglobin and hematocrit levels. The patient is pending blood atkinson sfusion. We will continue Epogen. 3. Mineral bone disorder, monitor calcium and phosphorus levels. 4. Hypokalemia, improved. Continue to monitor. 5. Acute respiratory failure secondary to pneumonia and sepsis. Continue current medical management . Continue supplemental oxygen, bronchodilators. 6. Elevated troponin, possible non-STEMI type 1. Continue to monitor. Continue serial troponins. Follow up with cardiology, holding aspirin in setting of severe anemia. 7. Acute encephalopathy, etiology is toxic metabolic, improving. 8. Diabetes. Continue current insulin regimen. 9. History of coronary artery disease. Continue medical management. 10. Hypothyroidism. Continue Synthroid. 11. Dyslipidemia. Continue statin therapy. 12. Hypertension. We will continue to monitor. Dictated By: DANISHA PARIS DO NR/NTS Conf#: [id number] DID#: [id number] CC: ALMA DELIA EAST MD; NHUNG STUBBS MD;*EndCC*
[2018-05-02] MEDS ORDERED: VANCOMYCIN 500 MG (PMX) 100 ML IVPB ONE (11:00)
--- NOTE | 2018-05-02 11:12 | CONS ---
Assessment/Plan Assessment/Plan Hospital Course (Demo Recall) SIRS Ejection fraction Borderline hypotension Elevated troponin Acute blood loss anemia End-stage renal disease on hemodialysis Diabetes History of open heart surgery-likely CABG -Patient with not feeling well, febrile during hemodialysis. Patient found to be severely anemic, febrile with blood pressure on the lower side. Feeling better today -Patient with recurrent anemia and initially troponins were trending down and now trending up. Would recommend blood transfusion ideally to maintain hemoglobin above 9 -No aspirin at the current time given anemia, no beta-ralph given low blood pressure. Continue statin Consultation Date/Type/Reason Admit Date/Time May 01, 2018 at 13:32 Initial Consult Date Type of Consult Cardiology Date/Time of Note DATE: 05/02/18 TIME: 11:09 24 HR Interval Summary Free Text/Dictation Denies chest pain, shortness of breath Exam/Review of Systems Vital Signs Vitals Vital Signs Date Temp Pulse Resp B/P (MAP) Pulse Ox O2 O2 Flow FiO2 Time Delivery Rate 05/02/18 72 08:15 05/02/18 20 97 21 08:02 05/02/18 98.2 92/50 (64) 07:35 05/02/18 2.0 01:57 05/02/18 Nasal 01:57 Cannula Intake and Output 05/01/18 05/01/18 05/02/18 1515:00 23:00 07:00 IntakeIntake Total 300 ml OutputOutput Total 200 ml BalanceBalance 100 ml Exam Constitutional: alert, oriented Neck: supple Respiratory: other (Coarse breath sounds bilaterally, no wheezing) Cardiovascular: regular rate and rhythm (S1-S2 heard) Gastrointestinal: soft, non-tender, bowel sounds Extremities: other (Amputation) Labs Result Diagram: 05/02/18 0540 05/02/18 0540 Results 24hrs Laboratory Tests Test 05/01/18 11:47 05/01/18 12:11 05/01/18 16:20 05/01/18 16:26 White Blood Count 10.4 Red Blood Count 2.01 L Hemoglobin 6.8 *L Hematocrit 20.0 L Mean Corpuscular 99.5 Volume Mean Corpuscular 33.8 H Hemoglobin Mean Corpuscular 34.0 Hemoglobin Concent Red Cell 16.5 H Distribution Width Platelet Count 133 L Mean Platelet 9.8 Volume Immature 1.900 H Granulocytes % Neutrophils % 87.7 H Segmented 69 Neutrophils % (Manual) Band Neutrophils % 23 H (Manual) Lymphocytes % 5.8 L Lymphocytes % 5 L (Manual) Reactive 1 H Lymphocytes % (Manual) Monocytes % 4.3 Monocytes % 2 (Manual) Eosinophils % 0.2 Basophils % 0.1 Nucleated Red 0.0 Blood Cells % Immature 0.200 H Granulocytes # Neutrophils # 9.1 H Neutrophils # 7.4 (Manual) Band Neutrophils # 2.3 H Lymphocytes 0.5 L (Manual) Lymphocytes # 0.6 L Reactive 0.1 H Lymphocytes # Monocytes # 0.5 Monocytes # 0.2 L (Manual) Eosinophils # 0.0 Basophils # 0.0 Nucleated Red 0.0 Blood Cells # Pathologist Review (Hematology ) Platelet Estimate NORMAL Polychromasia 2+ Hypochromasia 1+ Anisocytosis 2+ Microcytosis 2+ Prothrombin Time 14.8 Prothrombin Time 1.2 Ratio INR International 1.15 Normalized Ratio Activated 32.[address] Time Path Consult FARIDEH JOSEPH, Signing Pathologis MD person Sodium Level 138 Potassium Level 3.2 L Chloride Level 91 L Carbon Dioxide 32 H Level Anion Gap 15 H Blood Urea 41 H Nitrogen Creatinine 5.30 H Est Glomerular 11 L Filtrat Rate mL/min Glucose Level 102 Calcium Level 9.3 Total Bilirubin 0.4 Direct Bilirubin 0.00 Indirect Bilirubin 0.4 Aspartate Amino 20 Transf (AST/SGOT) Alanine 37 Aminotransferase ( ALT/SGPT) Alkaline 202 H Phosphatase Troponin I 1.520 *H 1.340 *H Total Protein 8.0 Albumin 4.4 Globulin 3.60 H Albumin/Globulin 1.22 Ratio POC Venous Lactate 1.6 1.5 Hemoglobin A1c 6.8 H Creatine Kinase 57 Creatine Kinase 4.1 Index Creatinine Kinase 2.33 MB (Mass) Thyroid 1.490 Stimulating Hormone (TSH) Free Thyroxine 1.64 Test 05/01/18 16:28 05/01/18 18:36 05/01/18 18:37 05/01/18 20:54 Iron Level 35 Total Iron Binding 254 Capacity Percent Iron 14 L Saturation Ferritin 752.0 H Prostate Specific 3.8 Antigen Bedside Glucose 142 133 Lactic Acid Level 1.0 Test 05/01/18 22:13 05/02/18 05:40 05/02/18 07:54 Creatine Kinase 75 82 Creatine Kinase 5.3 8.1 Index Creatinine Kinase 3.97 H 6.64 H MB (Mass) Troponin I 1.570 *H 1.990 *H White Blood Count 12.2 H Red Blood Count 1.99 L Hemoglobin 6.6 *L Hematocrit 20.1 L Mean Corpuscular 101.0 Volume Mean Corpuscular 33.2 H Hemoglobin Mean Corpuscular 32.8 Hemoglobin Concent Red Cell 17.1 H Distribution Width Platelet Count 114 L Mean Platelet 9.8 Volume Immature 1.300 H Granulocytes % Neutrophils % 77.7 H Lymphocytes % 12.1 L Monocytes % 7.7 Eosinophils % 1.0 Basophils % 0.2 Nucleated Red 0.0 Blood Cells % Immature 0.160 H Granulocytes # Neutrophils # 9.5 H Lymphocytes # 1.5 Monocytes # 0.9 Eosinophils # 0.1 Basophils # 0.0 Nucleated Red 0.0 Blood Cells # Sodium Level 139 Potassium Level 4.0 Chloride Level 95 L Carbon Dioxide 28 Level Anion Gap 16 H Blood Urea 53 H Nitrogen Creatinine 6.96 H Est Glomerular 8 L Filtrat Rate mL/min Glucose Level 89 Calcium Level 8.3 L Phosphorus Level 4.8 Magnesium Level 2.5 Total Bilirubin 0.3 Direct Bilirubin 0.00 Indirect Bilirubin 0.3 Aspartate Amino 19 Transf (AST/SGOT) Alanine 34 Aminotransferase ( ALT/SGPT) Alkaline 143 H Phosphatase Total Protein 7.2 Albumin 3.8 Globulin 3.40 H Albumin/Globulin 1.11 Ratio Triglycerides 134 Level Cholesterol Level < 50 L LDL Cholesterol, Calculated HDL Cholesterol 17 L Cholesterol/HDL Ratio Bedside Glucose 109 Medications Medications Current Medications IV Flush (NS 3 ml) 3 ml PER PROTOCOL IV ; Start 05/01/18 at 16:00 Levalbuterol (Xopenex Neb) 0.63 mg Q6H RESP THERAPY HHN Last administered on 05/02/18at 07:59; Admin Dose 0.63 MG; Start 05/01/18 at 20:00 Insulin Aspart (Novolog Insulin Pen) NOVOLOG *MILD* ALGORITHM WITH MEALS BEDTIME SC ; Start 05/01/18 at 18:00 Ascorbic Acid (Vitamin C) 500 mg DAILY PO Last administered on 05/02/18at 08:23; Admin Dose 500 MG; Start 05/02/18 at 09:00 Docusate Sodium (Colace) 200 mg HS PO Last administered on 05/01/18at 20:55; Admin Dose 200 MG; Start 05/01/18 at 21:00 Ferrous Sulfate (Ferrous Sulfate (Ec)) 325 mg DAILY PO Last administered on 05/02/18 08:23; Admin Dose 325 MG; Start 05/02/18 at 09:00 Levothyroxine Sodium (Synthroid) 50 mcg BEFORE BREAKFAST PO Last administered on 05/02/18 06:44; Admin Dose 50 MCG; Start 05/02/18 at 07:00 Multivitamins Therapeutic (Theragran) 1 tab DAILY PO Last administered on 05/02/18 08:23; Admin Dose 1 TAB; Start 05/02/18 at 09:00 Sevelamer Carbonate (Renvela) 0.8 gm WITH MEALS PO Last administered on 05/02/18 08:24; Admin Dose 0.8 GM; Start 05/01/18 at 18:00 Atorvastatin Calcium (Lipitor) 40 mg QHS PO Last administered on 05/01/18at 20:56; Admin Dose 40 MG; Start 05/01/18 at 21:00 Cefepime HCl 50 ml @ 100 mls/hr Q24H IVPB ; Start 05/02/18 at 12:00 Vancomycin HCl (Vanco Iv Per Pharmacy) VANCOMYCIN PER PHARMACY PER PROTOCOL XX ; Start 05/02/18 at 07:30 Epoetin Gato (Epogen (Esrd)) 10,000 units MoWeFr@17 SC ; Start 05/02/18 at 17:00 Vancomycin HCl 100 ml @ 100 mls/hr ONCE ONCE IVPB ; Start 05/02/18 at 11:00; Stop 05/02/18 at 11:59 René Garcia DO May 02, 2018 11:12
--- NOTE | 2018-05-02 12:34 | PN ---
Date/Time of Note Date/Time of Note DATE: 05/02/18 TIME: 12:33 Assessment/Plan VTE [place] [facility] [place]: 4 [place] [facility] [place] SCD contraindicated: other Pharmacological prophylaxis: NA/contraindicated Pharm contraindication: anticoag not tolerated Lines/Catheters IV [facility] Permacath Urinary Cath still in place: No Assessment/Plan Hospital Course SUBJECTIVE: Denies any complaints. OBJECTIVE: Physical Exam General: Adequately build 67 year-old male lying in bed in no apparent distress. HEENT: Normocephalic, atraumatic. Eyes: Anicteric sclerae, conjunctivae clear. ENT: Nasal septum is midline, oral mucosa is dry. Neck supple, no JVD noticed. Respiratory: Bilaterally diminished breath sounds. No use of accessory muscles of respiration. No adventitious breath sounds. Cardiovascular: S1, S2 heard. Regular rate and rhythm. Abdomen: Soft, nontender, and nondistended. Bowel sounds positive in all 4 quadrants. Genitourinary: Deferred. Extremities: No cyanosis, no clubbing, no edema. Right lower extremity below- knee amputation. Neurologic: The patient is awake and alert. Oriented x1-2. Skin: Normal skin turgor. No skin rashes. Labs & Vitals per chart ASSESSMENT & PLAN 67-year-old male with comorbidities including end-stage renal disease on hemodialysis Tuesdays//Saturdays, hypertension, diabetes mellitus, anemia, prostatic hypertrophy, hypothyroidism, and CAD status post coronary artery bypass grafting. The [facility] was brought in from a [facility] facility because of fevers and diaphoresis with evidence of hypoxia at the [facility] facility. The patient was noticed to have elevated troponins, anemia, and left sided infiltrate on chest x-ray in the emergency room. The patient was admitted to inpatient setting for further treatment and evaluation. 1. NSTEMI. -Etiology unclear. -Prior history of CAD. Unable to start aspirin because of underlying anemia. -Cardiology following. 2D echocardiogram showing preserved left ventricular ejection fraction. 2. Healthcare associated pneumonia. -Continue antimicrobials 3. Acute respiratory failure. -Hypoxic -Most probably secondary to #2. -Continue supplemental oxygen. -Continue inhaled bronchodilators. -CTA negative for any PE. 4. Normocytic anemia. -Etiology unclear. -Transfuse blood products. -Obtain stool for OB. -Gastroenterology consult obtained. -Continue PPI. 5. Acute encephalopathy. -Unknown baseline mental status -Most probably toxic metabolic in origin. -Brain CT scan negative. 6. End-stage renal disease on hemodialysis -Nephrology following. 7. Diabetes mellitus. -Continue the patient on sliding scale insulin along with pre-meal insulin and basal insulin. -Hemoglobin A1c 6.8. 8. History of CAD. -Hold aspirin because of anemia. -Continue statins. -Cardiology follow-up. 9. Hypothyroidism. -Continue Synthroid. 10. Dyslipidemia. -Continue statins. 11. Hypertension. -Hold antihypertensives now since the patient is currently hypotensive. 12. Fluids, electrolytes, and nutrition. -Renal, carbohydrate controlled diet. 13. DVT prophylaxis. -SCD to the left lower extremity. 14. Plan. -Transfuse blood products as needed. -Monitor H&H closely. -Await further recommendations from consultants. The patient was seen in collaboration with Dr. Davies. Result Diagram: 05/02/18 1218 05/02/18 0540 Results 24hrs Laboratory Tests Test 05/01/18 16:20 05/01/18 16:26 05/01/18 16:28 05/01/18 18:36 POC Venous Lactate 1.5 Hemoglobin A1c 6.8 H Creatine Kinase 57 Creatine Kinase Index 4.1 Creatinine Kinase MB 2.33 (Mass) Troponin I 1.340 *H Thyroid Stimulating 1.490 Hormone (TSH) Free Thyroxine 1.64 Iron Level 35 Total Iron Binding 254 Capacity Percent Iron Saturation 14 L Ferritin 752.0 H Prostate Specific 3.8 Antigen Bedside Glucose 142 Test 05/01/18 18:37 05/01/18 20:54 05/01/18 22:13 05/02/18 05:37 Lactic Acid Level 1.0 Bedside Glucose 133 Creatine Kinase 75 Creatine Kinase Index 5.3 Creatinine Kinase MB 3.97 H (Mass) Troponin I 1.570 *H Hepatitis B Surface NEGATIVE Antigen Test 05/02/18 05:40 05/02/18 07:54 05/02/18 11:18 05/02/18 12:18 White Blood Count 12.2 H Red Blood Count 1.99 L Hemoglobin 6.6 *L 6.8 *L Hematocrit 20.1 L 20.8 L Mean Corpuscular Volume 101.0 Mean Corpuscular 33.2 H Hemoglobin Mean Corpuscular 32.8 Hemoglobin Concent Red Cell Distribution 17.1 H Width Platelet Count 114 L Mean Platelet Volume 9.8 Immature Granulocytes % 1.300 H Neutrophils % 77.7 H Lymphocytes % 12.1 L Monocytes % 7.7 Eosinophils % 1.0 Basophils % 0.2 Nucleated Red Blood 0.0 Cells % Immature Granulocytes # 0.160 H Neutrophils # 9.5 H Lymphocytes # 1.5 Monocytes # 0.9 Eosinophils # 0.1 Basophils # 0.0 Nucleated Red Blood 0.0 Cells # Sodium Level 139 Potassium Level 4.0 Chloride Level 95 L Carbon Dioxide Level 28 Anion Gap 16 H Blood Urea Nitrogen 53 H Creatinine 6.96 H Est Glomerular Filtrat 8 L Rate mL/min Glucose Level 89 Calcium Level 8.3 L Phosphorus Level 4.8 Magnesium Level 2.5 Total Bilirubin 0.3 Direct Bilirubin 0.00 Indirect Bilirubin 0.3 Aspartate Amino 19 Transf (AST/SGOT) Alanine 34 Aminotransferase (ALT/SG PT) Alkaline Phosphatase 143 H Creatine Kinase 82 Creatine Kinase Index 8.1 Creatinine Kinase MB 6.64 H (Mass) Troponin I 1.990 *H Total Protein 7.2 Albumin 3.8 Globulin 3.40 H Albumin/Globulin Ratio 1.11 Triglycerides Level 134 Cholesterol Level < 50 L LDL Cholesterol, Calculated HDL Cholesterol 17 L Cholesterol/HDL Ratio Bedside Glucose 109 136 Exam/Review of Systems Exam Vitals Vital Signs Date Temp Pulse Resp B/P (MAP) Pulse Ox O2 O2 Flow FiO2 Time Delivery Rate 05/02/18 77 12:16 05/02/18 98.2 19 114/55 96 11:29 (74) 05/02/18 21 08:02 05/02/18 2.0 01:57 05/02/18 Nasal 01:57 Cannula Intake and Output 05/01/18 05/01/18 05/02/18 1414:59 22:59 06:59 IntakeIntake Total 300 ml OutputOutput Total 200 ml BalanceBalance 100 ml Results Results 24hrs Laboratory Tests Test 05/01/18 16:20 05/01/18 16:26 05/01/18 16:28 05/01/18 18:36 POC Venous Lactate 1.5 Hemoglobin A1c 6.8 H Creatine Kinase 57 Creatine Kinase Index 4.1 Creatinine Kinase MB 2.33 (Mass) Troponin I 1.340 *H Thyroid Stimulating 1.490 Hormone (TSH) Free Thyroxine 1.64 Iron Level 35 Total Iron Binding 254 Capacity Percent Iron Saturation 14 L Ferritin 752.0 H Prostate Specific 3.8 Antigen Bedside Glucose 142 Test 05/01/18 18:37 05/01/18 20:54 05/01/18 22:13 05/02/18 05:37 Lactic Acid Level 1.0 Bedside Glucose 133 Creatine Kinase 75 Creatine Kinase Index 5.3 Creatinine Kinase MB 3.97 H (Mass) Troponin I 1.570 *H Hepatitis B Surface NEGATIVE Antigen Test 05/02/18 05:40 05/02/18 07:54 05/02/18 11:18 05/02/18 12:18 White Blood Count 12.2 H Red Blood Count 1.99 L Hemoglobin 6.6 *L 6.8 *L Hematocrit 20.1 L 20.8 L Mean Corpuscular Volume 101.0 Mean Corpuscular 33.2 H Hemoglobin Mean Corpuscular 32.8 Hemoglobin Concent Red Cell Distribution 17.1 H Width Platelet Count 114 L Mean Platelet Volume 9.8 Immature Granulocytes % 1.300 H Neutrophils % 77.7 H Lymphocytes % 12.1 L Monocytes % 7.7 Eosinophils % 1.0 Basophils % 0.2 Nucleated Red Blood 0.0 Cells % Immature Granulocytes # 0.160 H Neutrophils # 9.5 H Lymphocytes # 1.5 Monocytes # 0.9 Eosinophils # 0.1 Basophils # 0.0 Nucleated Red Blood 0.0 Cells # Sodium Level 139 Potassium Level 4.0 Chloride Level 95 L Carbon Dioxide Level 28 Anion Gap 16 H Blood Urea Nitrogen 53 H Creatinine 6.96 H Est Glomerular Filtrat 8 L Rate mL/min Glucose Level 89 Calcium Level 8.3 L Phosphorus Level 4.8 Magnesium Level 2.5 Total Bilirubin 0.3 Direct Bilirubin 0.00 Indirect Bilirubin 0.3 Aspartate Amino 19 Transf (AST/SGOT) Alanine 34 Aminotransferase (ALT/SG PT) Alkaline Phosphatase 143 H Creatine Kinase 82 Creatine Kinase Index 8.1 Creatinine Kinase MB 6.64 H (Mass) Troponin I 1.990 *H Total Protein 7.2 Albumin 3.8 Globulin 3.40 H Albumin/Globulin Ratio 1.11 Triglycerides Level 134 Cholesterol Level < 50 L LDL Cholesterol, Calculated HDL Cholesterol 17 L Cholesterol/HDL Ratio Bedside Glucose 109 136 Medications Medication Current Medications IV Flush (NS 3 ml) 3 ml PER PROTOCOL IV ; Start 05/01/18 at 16:00 Levalbuterol (Xopenex Neb) 0.63 mg Q6H RESP THERAPY HHN Last administered on 05/02/18 07:59; Admin Dose 0.63 MG; Start 05/01/18 at 20:00 Insulin Aspart (Novolog Insulin Pen) NOVOLOG *MILD* ALGORITHM WITH MEALS BEDTIME SC ; Start 05/01/18 at 18:00 Ascorbic Acid (Vitamin C) 500 mg DAILY PO Last administered on 05/02/18 08:23; Admin Dose 500 MG; Start 05/02/18 at 09:00 Docusate Sodium (Colace) 200 mg HS PO Last administered on 05/01/18 20:55; Admin Dose 200 MG; Start 05/01/18 at 21:00 Ferrous Sulfate (Ferrous Sulfate (Ec)) 325 mg DAILY PO Last administered on 05/02/18 08:23; Admin Dose 325 MG; Start 05/02/18 at 09:00 Levothyroxine Sodium (Synthroid) 50 mcg BEFORE BREAKFAST PO Last administered on 05/02/18 06:44; Admin Dose 50 MCG; Start 05/02/18 at 07:00 Multivitamins Therapeutic (Theragran) 1 tab DAILY PO Last administered on 05/02/18 08:23; Admin Dose 1 TAB; Start 05/02/18 at 09:00 Sevelamer Carbonate (Renvela) 0.8 gm WITH MEALS PO Last administered on 05/02/18 11:08; Admin Dose 0.8 GM; Start 05/01/18 at 18:00 Atorvastatin Calcium (Lipitor) 40 mg QHS PO Last administered on 05/01/18 20:56; Admin Dose 40 MG; Start 05/01/18 at 21:00 Cefepime HCl 50 ml @ 100 mls/hr Q24H IVPB ; Start 05/02/18 at 12:00 Vancomycin HCl (Vanco Iv Per Pharmacy) VANCOMYCIN PER PHARMACY PER PROTOCOL XX ; Start 05/02/18 at 07:30 Epoetin Gato (Epogen (Esrd)) 10,000 units MoWeFr@17 SC ; Start 05/02/18 at 17:00 Pantoprazole (Protonix Iv) 40 mg BID@06,18 IV ; Start 05/02/18 at 12:30 YOSEF MILLER NP May 02, 2018 12:34
--- NOTE | 2018-05-02 12:47 | CONS ---
DATE OF ADMISSION: 05/01/2018 DATE OF CONSULTATION: TYPE OF CONSULTATION: Gastroenterology. Dear Dr. Davies: Thank you for asking me to see Noe Cooper in GI consultation. HISTORY OF PRESENT ILLNESS: The patient, as you know, is a 67-year-old gentleman that was a dmitted to the hospital because of severe anemia. He was found to have hypotension as well on admiss ion and he was also having some fever on admission. He is feeling better today; however, GI consulta tion is requested because of severe anemia with hemoglobin around 6.8, hematocrit 20.0, platelet coun t 133,000, WBC count 10,400. Hemoglobin dropped to 6.6 today. He has got chronic renal failure and his BUN is 53, creatinine 6.9, potassium 4.0. AST is 19, ALT 34, alkaline phosphatase 143. Serum tr oponin is 199 today. It was 1.5 yesterday, 1.5 on 05/01/2018 again; however it seems to be increasin g at this moment. From the GI standpoint, he has no abdominal pain, although whenever he goes to the bathroom his stomach hurts. No nausea, no vomiting, no heartburn, no dysphagia, no significant weig ht loss. As mentioned earlier on, he has multiple other medical problems including chronic kidney di sease and he is on hemodialysis, history of coronary artery disease and coronary artery bypass surger y in the past. He has pneumonia, diabetes, coronary artery disease, dyslipidemia and hypertension. MEDICATIONS PRIOR TO ADMISSION: Include: 1. Ferrous sulfate. 2. Atorvastatin. 3. Lisinopril. 4. Carvedilol. 5. Aspirin. 6. Renvela. 7. Docusate. 8. Zofran. 9. Lantus. 10. Levoxyl. 11. Multivitamins. PHYSICAL EXAMINATION: GENERAL: The patient is a 67-year-old male who at this time is alert and well built. VITAL SIGNS: Temperature is 98.2, blood pressure is 114/55. CARDIOVASCULAR: Normal heart sounds. RESPIRATORY: Normal breath sounds. ABDOMEN: Unremarkable. Surgical scar noted in the midline of the chest. CLINICAL IMPRESSION: The patient has severe anemia, although it seems to be like it is normocytic no rmochromic anemia, but certainly one should rule out the possibility of gastrointestinal causes inclu ding peptic ulcer disease, arteriovenous malformation of gastrointestinal tract, colorectal neoplasm, although anemia could be contributed by anemia of chronic disease due to chronic kidney disease. PLAN: At this time, I would recommend upper endoscopy as well as lower endoscopy after cardiac clear ance. As noted, he has been having increasing troponin levels. Once again, Dr. Suni Davies, thank you for this consultation. Dictated By: ALMA DELIA EAST MD NC/NTS Conf#: [id number] DID#: [id number] CC: SUNI DAVIES MD;*EndCC*
[2018-05-02] MEDS ORDERED: HEPARIN 1000 UNITS/ML 10 ML INJ CATHETER SCH (16:00)
[2018-05-02] MEDS: PANTOPRAZOLE 40 MG INJ IV SCH ×2 (18:16→20:30)
[2018-05-02] MEDS: CEFEPIME 1GM/50 ML (PMX) 50 ML IVPB SCH (18:16)
[2018-05-02] MEDS: EPOETIN 10000 UNITS/1 ML INJ (ESRD) SC SCH (18:18)
[2018-05-02] MEDS: DOCUSATE SODIUM 100 MG CAP PO SCH (20:36)
[2018-05-02] MEDS: ATORVASTATIN 40 MG TAB PO SCH (20:36)
[2018-05-03] VITALS (12 sets, daily range): BP systolic 100–143; BP diastolic 51–68; PULSE 66–77; RESP 17–20
[2018-05-03] MEDS: LEVALBUTEROL (NEB) 0.63 MG/3 ML AMP HHN SCH ×4 (01:26→20:30)
[2018-05-03] MEDS: LEVOTHYROXINE 50 MCG TAB PO SCH (05:24)
[2018-05-03] MEDS: PANTOPRAZOLE 40 MG INJ IV SCH ×2 (05:24→17:19)
--- NOTE | 2018-05-03 07:44 | PN ---
Date/Time of Note Date/Time of Note DATE: 05/03/18 TIME: 07:44 Assessment/Plan VTE Prophylaxis Risk score (from [facility] [place]0 risk: 4 SCD applied (from [facility] [place]): No SCD contraindicated: other Pharmacological prophylaxis: NA/contraindicated Pharm contraindication: anticoag not tolerated Lines/Catheters IV Catheter Type (from [facility]): permacath Urinary Cath still in place: No Assessment/Plan Hospital Course SUBJECTIVE: Denies any complaints. OBJECTIVE: Physical Exam General: Adequately build 67 year-old male lying in bed in no apparent distress. HEENT: Normocephalic, atraumatic. Eyes: Anicteric sclerae, conjunctivae clear. ENT: Nasal septum is midline, oral mucosa is dry. Neck supple, no JVD noticed. Respiratory: Bilaterally diminished breath sounds. No use of accessory muscles of respiration. No adventitious breath sounds. Cardiovascular: S1, S2 heard. Regular rate and rhythm. Abdomen: Soft, nontender, and nondistended. Bowel sounds positive in all 4 quadrants. Genitourinary: Deferred. Extremities: No cyanosis, no clubbing, no edema. Right lower extremity below- knee amputation. Neurologic: The patient is awake and alert. Oriented x1-2. Skin: Normal skin turgor. No skin rashes. Labs & Vitals per chart ASSESSMENT & PLAN 67-year-old male with comorbidities including end-stage renal disease on hemodialysis Tuesdays//Saturdays, hypertension, diabetes mellitus, anemia, prostatic hypertrophy, hypothyroidism, and CAD status post coronary artery bypass grafting. The patient was brought in from a senior living facility because of fevers and diaphoresis with evidence of hypoxia at the senior living facility. The patient was noticed to have elevated troponins, anemia, and left sided infiltrate on chest x-ray in the emergency room. The patient was admitted to inpatient setting for further treatment and evaluation. 1. NSTEMI. -Etiology unclear. -Prior history of CAD. Unable to start aspirin because of underlying anemia. -Cardiology following. -2D echocardiogram showing preserved left ventricular ejection fraction. 2. Healthcare associated pneumonia. -Continue antimicrobials 3. Acute respiratory failure. -Hypoxic -Most probably secondary to #2. -Continue supplemental oxygen. -Continue inhaled bronchodilators. -CTA negative for any PE. 4. Normocytic anemia. -Etiology unclear. -Transfuse blood products. -Obtain stool for OB. -Gastroenterology consult obtained. -Continue PPI. 5. Acute encephalopathy. -Unknown baseline mental status -Most probably toxic metabolic in origin. -Brain CT scan negative. 6. End-stage renal disease on hemodialysis -Nephrology following. 7. Diabetes mellitus. -Continue the patient on sliding scale insulin along with pre-meal insulin and basal insulin. -Hemoglobin A1c 6.8. 8. History of CAD. -Hold aspirin because of anemia. -Continue statins. -Cardiology follow-up. 9. Hypothyroidism. -Continue Synthroid. 10. Dyslipidemia. -Continue statins. 11. Hypertension. -Defer resumption of antihypertensives to cardiology. 12. Pulmonary hypertension. -PA systolic pressure of 51mm Hg. -Continue supplemental O2. 12. Fluids, electrolytes, and nutrition. -Renal, carbohydrate controlled diet. 13. DVT prophylaxis. -SCD to the left lower extremity. 15. Plan. -Transfuse blood products as needed. -Monitor H&H closely. -Await further recommendations from consultants. The patient was seen in collaboration with Dr. Davies. Result Diagram: 05/03/18 0541 05/03/18 0541 Results 24hrs Laboratory Tests Test 05/02/18 07:54 05/02/18 11:18 05/02/18 12:18 05/02/18 18:13 Bedside Glucose 109 136 85 Hemoglobin 6.8 *L Hematocrit 20.8 L Test 05/02/18 19:43 05/02/18 20:33 05/03/18 00:28 05/03/18 05:41 Hemoglobin 10.0 #L 9.3 L 9.5 L Hematocrit 30.2 #L 28.1 L 28.9 L Bedside Glucose 108 White Blood Count 13.0 H Red Blood Count 2.95 #L Mean Corpuscular Volume 98.0 Mean Corpuscular 32.2 Hemoglobin Mean Corpuscular 32.9 Hemoglobin Concent Red Cell Distribution 17.4 H Width Platelet Count 127 L Mean Platelet Volume 10.3 Immature Granulocytes % 1.300 H Neutrophils % 80.4 H Lymphocytes % 11.0 L Monocytes % 6.9 Eosinophils % 0.2 Basophils % 0.2 Nucleated Red Blood 0.2 H Cells % Immature Granulocytes # 0.170 H Neutrophils # 10.5 H Lymphocytes # 1.4 Monocytes # 0.9 Eosinophils # 0.0 Basophils # 0.0 Nucleated Red Blood 0.0 Cells # Sodium Level 142 Potassium Level 4.3 Chloride Level 99 Carbon Dioxide Level 28 Anion Gap 15 H Blood Urea Nitrogen 32 #H Creatinine 4.55 #H Est Glomerular Filtrat 13 L Rate mL/min Glucose Level 100 Calcium Level 8.7 Phosphorus Level 4.5 Magnesium Level 2.3 Creatine Kinase 72 Creatine Kinase Index 6.9 Creatinine Kinase MB 4.98 H (Mass) Troponin I 3.140 *H Exam/Review of Systems Exam Vitals Vital Signs Date Temp Pulse Resp B/P (MAP) Pulse Ox O2 O2 Flow FiO2 Time Delivery Rate 05/03/18 2.0 07:36 05/03/18 72 18 90 21 07:34 05/03/18 98.6 143/64 Room Air 07:34 (90) Intake and Output 05/02/18 05/02/18 05/03/18 1515:00 23:00 07:00 IntakeIntake Total 100 ml 950 ml 400 ml OutputOutput Total 200 ml 2500 ml 100 ml BalanceBalance -100 ml -1550 ml 300 ml Results Results 24hrs Laboratory Tests Test 05/02/18 07:54 05/02/18 11:18 05/02/18 12:18 05/02/18 18:13 Bedside Glucose 109 136 85 Hemoglobin 6.8 *L Hematocrit 20.8 L Test 05/02/18 19:43 05/02/18 20:33 05/03/18 00:28 05/03/18 05:41 Hemoglobin 10.0 #L 9.3 L 9.5 L Hematocrit 30.2 #L 28.1 L 28.9 L Bedside Glucose 108 White Blood Count 13.0 H Red Blood Count 2.95 #L Mean Corpuscular Volume 98.0 Mean Corpuscular 32.2 Hemoglobin Mean Corpuscular 32.9 Hemoglobin Concent Red Cell Distribution 17.4 H Width Platelet Count 127 L Mean Platelet Volume 10.3 Immature Granulocytes % 1.300 H Neutrophils % 80.4 H Lymphocytes % 11.0 L Monocytes % 6.9 Eosinophils % 0.2 Basophils % 0.2 Nucleated Red Blood 0.2 H Cells % Immature Granulocytes # 0.170 H Neutrophils # 10.5 H Lymphocytes # 1.4 Monocytes # 0.9 Eosinophils # 0.0 Basophils # 0.0 Nucleated Red Blood 0.0 Cells # Sodium Level 142 Potassium Level 4.3 Chloride Level 99 Carbon Dioxide Level 28 Anion Gap 15 H Blood Urea Nitrogen 32 #H Creatinine 4.55 #H Est Glomerular Filtrat 13 L Rate mL/min Glucose Level 100 Calcium Level 8.7 Phosphorus Level 4.5 Magnesium Level 2.3 Creatine Kinase 72 Creatine Kinase Index 6.9 Creatinine Kinase MB 4.98 H (Mass) Troponin I 3.140 *H Medications Medication Current Medications IV Flush (NS 3 ml) 3 ml PER PROTOCOL IV ; Start 05/01/18 at 16:00 Levalbuterol (Xopenex Neb) 0.63 mg Q6H RESP THERAPY HHN Last administered on 05/03/18 07:34; Admin Dose 0.63 MG; Start 05/01/18 at 20:00 Insulin Aspart (Novolog Insulin Pen) NOVOLOG *MILD* ALGORITHM WITH MEALS BEDTIME SC ; Start 05/01/18 at 18:00 Ascorbic Acid (Vitamin C) 500 mg DAILY PO Last administered on 05/02/18 08:23; Admin Dose 500 MG; Start 05/02/18 at 09:00 Docusate Sodium (Colace) 200 mg HS PO Last administered on 05/02/18 20:36; Admin Dose 200 MG; Start 05/01/18 at 21:00 Ferrous Sulfate (Ferrous Sulfate (Ec)) 325 mg DAILY PO Last administered on 05/02/18 08:23; Admin Dose 325 MG; Start 05/02/18 at 09:00 Levothyroxine Sodium (Synthroid) 50 mcg BEFORE BREAKFAST PO Last administered on 05/03/18 05:24; Admin Dose 50 MCG; Start 05/02/18 at 07:00 Multivitamins Therapeutic (Theragran) 1 tab DAILY PO Last administered on 05/02/18 08:23; Admin Dose 1 TAB; Start 05/02/18 at 09:00 Sevelamer Carbonate (Renvela) 0.8 gm WITH MEALS PO Last administered on 11:08; Admin Dose 0.8 GM; Start 05/01/18 at 18:00 Atorvastatin Calcium (Lipitor) 40 mg QHS PO Last administered on 05/02/18 20:36; Admin Dose 40 MG; Start 05/01/18 at 21:00 Cefepime HCl 50 ml @ 100 mls/hr Q24H IVPB Last administered on 05/02/18 18:16; Admin Dose 100 MLS/HR; Start 05/02/18 at 12:00 Vancomycin HCl (Vanco Iv Per Pharmacy) VANCOMYCIN PER PHARMACY PER PROTOCOL XX ; Start 05/02/18 at 07:30 Epoetin Gato (Epogen (Esrd)) 10,000 units MoWeFr@17 SC Last administered on 05/02/18at 18:18; Admin Dose 10,000 UNITS; Start 05/02/18 at 17:00 Pantoprazole (Protonix Iv) 40 mg BID@06,18 IV Last administered on 05/03/18at 05:24; Admin Dose 40 MG; Start 05/02/18 at 12:30 YOSEF MILLER NP May 03, 2018 07:44
[2018-05-03] MEDS: INSULIN ASPART [NOVOLOG] 3 ML PEN SC SCH ×4 (08:00→20:18)
[2018-05-03] MEDS: FERROUS SULFATE (EC) 325 MG TAB PO SCH (08:30)
[2018-05-03] MEDS: SEVELAMER CARBONATE 0.8 GM PKT PO SCH ×3 (08:30→17:19)
[2018-05-03] MEDS: MULTIVITAMINS THERAPEUTIC TAB PO SCH (08:30)
[2018-05-03] MEDS: ASCORBIC ACID 500 MG TAB PO SCH (08:30)
--- NOTE | 2018-05-03 11:46 | PN ---
DATE: 05/03/2018 SUBJECTIVE: The patient is stable. No events overnight. OBJECTIVE: VITAL SIGNS: Blood pressure is 143/64, pulse 76, respiration 18, temperature 98.6. HEENT: Head is normocephalic. NECK: Supple. HEART: Regular rate. LUNGS: Show diminished breath sounds at the base. ABDOMEN: Soft, nontender to palpation without rebound or guarding. EXTREMITIES: Negative for clubbing, cyanosis, no edema. DERMATOLOGIC: No rashes. MUSCULOSKELETAL: No joint effusion. NEUROLOGIC: No change in exam. MEDICATIONS: Reviewed. LABORATORY DATA: From 05/03/2018 was reviewed. ASSESSMENT AND PLAN: 1. End-stage renal disease. The patient had hemodialysis yesterday, currently off schedule. Plan f or dialysis tomorrow. 2. Anemia. The patient is status post blood transfusion. Continue to monitor H and H levels. Cont inue Epogen. The patient is pending a possible endoscopy once clinically stable. 3. Mineral bone disorder. Monitor calcium and phosphorus levels. 4. Hyperkalemia. Continue to monitor. 5. Acute respiratory failure secondary to pneumonia, sepsis. Continue current antibiotic regimen. Continue supplemental oxygen, bronchodilators. 6. Elevated troponin. Continue to monitor. Possible demand ischemia. Follow up with cardiology. 7. Acute encephalopathy. Etiology is toxic metabolic. 8. Diabetes. Continue current insulin regimen. 9. History of coronary artery disease. Continue medical management. 10. Hyperthyroidism. Continue Synthroid. 11. Dyslipidemia. Continue status therapy. 12. Hypertension. Continue current blood pressure regimen. Dictated By: DANISHA PARIS DO NR/NTS Conf#: [id number] DID#: [id number] CC: NHUNG STUBBS MD;*EndCC*
[2018-05-03] MEDS: CEFEPIME 1GM/50 ML (PMX) 50 ML IVPB SCH (12:08)
[2018-05-03] MEDS: LACTULOSE 30ML CUP PO SCH ×3 (12:08→20:19)
--- NOTE | 2018-05-03 14:38 | CONS ---
Assessment/Plan Assessment/Plan Hospital Course (Demo Recall) 67 yo with multiple medical problems presenting with weakness and severe anemia, found to have abnormal troponin which is continuing to rise, in spite of lack of patient symptoms. Impression: Elevated troponin, type 2 DE versus active ischemia secondary to acute medical issues Acute blood loss anemia End-stage renal disease on hemodialysis Diabetes History of open heart surgery-likely CABG, done 2 years ago, unknown hospital Recommendations: I've been asked to clear Mr. Gamboa for EGD. Unfortunately, with elevated troponins that are in fact rising, Mr. Gamboa is at increased risk of perioperative cardiovascular complications. That said, if EGD is felt emergent, would proceed recognizing the risk Continue statin therapy, transfusions to keep hgb greater than 9 Consider ischemic workup, stress testing versus coronary angiography No ASA due to anemia As blood pressure has improved, is reasonable to restart beta blockade. Patient was on carvedilol 6.25 mg po bid, will restart this with hold parameters in place. Consultation Date/Type/Reason Admit Date/Time May 01, 2018 at 13:32 Initial Consult Date Type of Consult Cardiology Date/Time of Note DATE: 05/03/18 TIME: 14:30 24 HR Interval Summary Free Text/Dictation At present no chest pain, some dyspnea and minimal cough. Patient seen with finisher card tender. Exam/Review of Systems Vital Signs Vitals Vital Signs Date Temp Pulse Resp B/P (MAP) Pulse Ox O2 O2 Flow FiO2 Time Delivery Rate 05/03/18 76 18 98 21 13:13 05/03/18 98.3 129/58 Room Air 11:58 (81) 05/03/18 2.0 08:00 Intake and Output 05/02/18 05/02/18 05/03/18 1515:00 23:00 07:00 IntakeIntake Total 100 ml 950 ml 400 ml OutputOutput Total 200 ml 2500 ml 100 ml BalanceBalance -100 ml -1550 ml 300 ml Exam Constitutional: alert, oriented Psych: no complaints, nl mood/affect Head: normocephalic, atraumatic Eyes: nl conjunctiva, nl lids ENMT: nl external ears & nose Neck: No jvd, No bruits Respiratory: clear to auscultation, normal air movement Cardiovascular: regular rate and rhythm; No nl pulses (absent left DP pulse) Gastrointestinal: soft, nl liver, spleen, non-tender Musculoskeletal: nl extremities to inspection Extremities: other (right bka); No edema Neurological: nl mental status, nl speech Skin: nl turgor Labs Result Diagram: 05/03/18 0541 05/03/18 0541 Results 24hrs Laboratory Tests Test 05/02/18 18:13 05/02/18 19:43 05/02/18 20:33 05/03/18 00:28 Bedside Glucose 85 108 Hemoglobin 10.0 #L 9.3 L Hematocrit 30.2 #L 28.1 L Test 05/03/18 05:41 05/03/18 07:43 05/03/18 11:55 White Blood Count 13.0 H Red Blood Count 2.95 #L Hemoglobin 9.5 L Hematocrit 28.9 L Mean Corpuscular Volume 98.0 Mean Corpuscular 32.2 Hemoglobin Mean Corpuscular 32.9 Hemoglobin Concent Red Cell Distribution 17.4 H Width Platelet Count 127 L Mean Platelet Volume 10.3 Immature Granulocytes % 1.300 H Neutrophils % 80.4 H Lymphocytes % 11.0 L Monocytes % 6.9 Eosinophils % 0.2 Basophils % 0.2 Nucleated Red Blood 0.2 H Cells % Immature Granulocytes # 0.170 H Neutrophils # 10.5 H Lymphocytes # 1.4 Monocytes # 0.9 Eosinophils # 0.0 Basophils # 0.0 Nucleated Red Blood 0.0 Cells # Sodium Level 142 Potassium Level 4.3 Chloride Level 99 Carbon Dioxide Level 28 Anion Gap 15 H Blood Urea Nitrogen 32 #H Creatinine 4.55 #H Est Glomerular Filtrat 13 L Rate mL/min Glucose Level 100 Calcium Level 8.7 Phosphorus Level 4.5 Magnesium Level 2.3 Creatine Kinase 72 Creatine Kinase Index 6.9 Creatinine Kinase MB 4.98 H (Mass) Troponin I 3.140 *H Bedside Glucose 95 132 Medications Medications Current Medications IV Flush (NS 3 ml) 3 ml PER PROTOCOL IV ; Start 05/01/18 at 16:00 Levalbuterol (Xopenex Neb) 0.63 mg Q6H RESP THERAPY HHN Last administered on 05/03/18at 13:13; Admin Dose 0.63 MG; Start 05/01/18 at 20:00 Insulin Aspart (Novolog Insulin Pen) NOVOLOG *MILD* ALGORITHM WITH MEALS BEDTIME SC ; Start 05/01/18 at 18:00 Ascorbic Acid (Vitamin C) 500 mg DAILY PO Last administered on 05/03/18 08:30; Admin Dose 500 MG; Start 05/02/18 at 09:00 Docusate Sodium (Colace) 200 mg HS PO Last administered on 05/02/18 20:36; Admin Dose 200 MG; Start 05/01/18 at 21:00 Ferrous Sulfate (Ferrous Sulfate (Ec)) 325 mg DAILY PO Last administered on 05/03/18 08:30; Admin Dose 325 MG; Start 05/02/18 at 09:00 Levothyroxine Sodium (Synthroid) 50 mcg BEFORE BREAKFAST PO Last administered on 05/03/18 05:24; Admin Dose 50 MCG; Start 05/02/18 at 07:00 Multivitamins Therapeutic (Theragran) 1 tab DAILY PO Last administered on 05/03/18 08:30; Admin Dose 1 TAB; Start 05/02/18 at 09:00 Sevelamer Carbonate (Renvela) 0.8 gm WITH MEALS PO Last administered on 05/03/18 12:08; Admin Dose 0.8 GM; Start 05/01/18 at 18:00 Atorvastatin Calcium (Lipitor) 40 mg QHS PO Last administered on 05/02/18 20:36; Admin Dose 40 MG; Start 05/01/18 at 21:00 Cefepime HCl 50 ml @ 100 mls/hr Q24H IVPB Last administered on 05/03/18 12:08; Admin Dose 100 MLS/HR; Start 05/02/18 at 12:00 Vancomycin HCl (Vanco Iv Per Pharmacy) VANCOMYCIN PER PHARMACY PER PROTOCOL XX ; Start 05/02/18 at 07:30 Epoetin Gato (Epogen (Esrd)) 10,000 units MoWeFr@17 SC Last administered on 05/02/18 18:18; Admin Dose 10,000 UNITS; Start 05/02/18 at 17:00 Pantoprazole (Protonix Iv) 40 mg BID@06,18 IV Last administered on 05/03/18 05:24; Admin Dose 40 MG; Start 05/02/18 at 12:30 Lactulose (Enulose) 20 gm Q4 PO Last administered on 05/03/18 12:08; Admin Dose 20 GM; Start 05/03/18 at 13:00 Miscellaneous Information (*Rx Drug Level Order Reminder*) VANCO RANDOM @ 0,500 ONCE ONCE XX ; Start 05/04/18 at 05:00; Stop 05/04/18 at 05:01 KEVAN VERDUGO May 03, 2018 14:38
--- NOTE | 2018-05-03 15:24 | CONS ---
DATE OF ADMISSION: 05/01/2018 DATE OF CONSULTATION: HISTORY OF PRESENT ILLNESS: The patient was seen by me because at the request of the hospitalist greta ause of the anemia. Hemoglobin was 6.6 initially, is 9.5. No active bleeding. However, he de veloped evidence of high troponin level of 3.1, at one point it was 1.9, that means has been trending upwards. PHYSICAL EXAMINATION: GENERAL: The patient is alert. VITAL SIGNS: He is afebrile. Blood pressure 143/64, pulse is 72. CARDIOVASCULAR: Normal heart sounds. RESPIRATORY: Normal breath sounds. ABDOMEN: Unremarkable. CLINICAL IMPRESSION: The patient has severe anemia. He also has a high troponin level and upon disc ussion with the hospitalist, it is clear that no acute cardiac event has occurred and endoscopy will be performed understanding that patient could be high risk candidate as well. Dictated By: ALMA DELIA URIAS/SEA Conf#: [id number] DID#: [id number] CC: NHUNG STUBBS MD;*EndCC*
--- NOTE | 2018-05-03 17:17 | RADRPT ---
Vent Rate: 69 bpm RR Interval: 0 msec [place] Interval: 194 msec QRS Duration: 122 msec QT Interval: 488 msec QTC Interval: 522 msec P-R-T [place]: 40 - 1 - 113 degrees Normal sinus rhythm with sinus arrhythmia Nonspecific intraventricular conduction delay ST & T wave abnormality, consider anterolateral ischemia Abnormal ECG Electronically Signed By: Tony Murphy
[2018-05-03] MEDS: DOCUSATE SODIUM 100 MG CAP PO SCH (20:19)
[2018-05-03] MEDS: ATORVASTATIN 40 MG TAB PO SCH (20:19)
[2018-05-04] VITALS (26 sets, daily range): BP systolic 86–181; BP diastolic 29–149; PULSE 66–96; RESP 18–21
[2018-05-04] MEDS: LACTULOSE 30ML CUP PO SCH ×6 (01:00→20:49)
[2018-05-04] MEDS: LEVALBUTEROL (NEB) 0.63 MG/3 ML AMP HHN SCH ×4 (01:22→21:15)
[2018-05-04] MEDS: PANTOPRAZOLE 40 MG INJ IV SCH ×2 (06:56→17:25)
[2018-05-04] MEDS: LEVOTHYROXINE 50 MCG TAB PO SCH (06:56)
[2018-05-04] MEDS: INSULIN ASPART [NOVOLOG] 3 ML PEN SC SCH ×4 (08:00→20:56)
[2018-05-04] MEDS: ASCORBIC ACID 500 MG TAB PO SCH (08:26)
[2018-05-04] MEDS: SEVELAMER CARBONATE 0.8 GM PKT PO SCH ×3 (08:26→17:25)
[2018-05-04] MEDS: MULTIVITAMINS THERAPEUTIC TAB PO SCH (08:26)
[2018-05-04] MEDS: FERROUS SULFATE (EC) 325 MG TAB PO SCH (08:29)
--- NOTE | 2018-05-04 09:54 | PN ---
DATE: 05/04/2018 SUBJECTIVE: The patient is stable, no events overnight. The patient is pending possible EGD. OBJECTIVE: VITAL SIGNS: Blood pressure is 111/29, pulse 67, respirations 20, temperature 98.4. HEENT: Head is normocephalic. NECK: Supple. HEART: Regular rate. LUNGS: Show diminished breath sounds at the base. ABDOMEN: Soft, nontender to palpation. No rebound or guarding. EXTREMITIES: Negative for clubbing, cyanosis, no edema. DERMATOLOGIC: No rashes. MUSCULOSKELETAL: No joint effusion. NEUROLOGIC: No change in exam. MEDICATIONS: The patient's medications have been reviewed. LABORATORY DATA: The laboratory data has been reviewed. ASSESSMENT AND PLAN: 1. End-stage renal disease. The patient is scheduled for dialysis today. 2. Anemia. Monitor hemoglobin and hematocrit levels. Continue Epogen. The patient is status post blood transfusion. 3. The patient is pending possible EGD once cleared and stable. 4. Mineral bone disorder. Monitor calcium and phosphorus levels. 5. Hypokalemia, improved. 6. Acute respiratory failure, improved. Continue to monitor. Continue supplemental oxygen and bron chodilators. Etiology may be secondary to pneumonia. Continue current antibiotic regimen. 7. Elevated troponin, possible non-STEMI type 1 versus type 2. Continue to monitor. Follow up with Cardiology. 8. Acute encephalopathy, etiology toxic metabolic. 9. Diabetes. Continue current insulin regimen. 10. History of coronary artery disease. Continue medical management. 11. Hypothyroidism. Continue Synthroid. 12. Dyslipidemia. Continue statin therapy. 13. Hypertension. Continue current blood pressure regimen. Dictated By: DANISHA PARIS DO NR/NTS Conf#: [id number] DID#: [id number] CC: ALMA DELIA EAST MD; NHUNG STUBBS MD;*EndCC*
[2018-05-04] MEDS: CEFEPIME 1GM/50 ML (PMX) 50 ML IVPB SCH (11:49)
--- NOTE | 2018-05-04 12:34 | PN ---
Date/Time of Note Date/Time of Note DATE: 05/04/18 TIME: 12:33 Assessment/Plan VTE Prophylaxis Risk score (from Ns)>0 risk: 3 SCD applied (from Ns): No SCD contraindicated: other Pharmacological prophylaxis: NA/contraindicated Pharm contraindication: anticoag not tolerated Lines/Catheters IV Catheter Type (from [facility]): Permacath Urinary Cath still in place: No Assessment/Plan Hospital Course SUBJECTIVE: Getting HD. OBJECTIVE: Physical Exam General: Adequately build 67 year-old male lying in bed in no apparent distress. HEENT: Normocephalic, atraumatic. Eyes: Anicteric sclerae, conjunctivae clear. ENT: Nasal septum is midline, oral mucosa is dry. Neck supple, no JVD noticed. Respiratory: Bilaterally diminished breath sounds. No use of accessory muscles of respiration. No adventitious breath sounds. Cardiovascular: S1, S2 heard. Regular rate and rhythm. Abdomen: Soft, nontender, and nondistended. Bowel sounds positive in all 4 quadrants. Genitourinary: Deferred. Extremities: No cyanosis, no clubbing, no edema. Right lower extremity below- knee amputation. Neurologic: The patient is awake and alert. Oriented x1-2. Skin: Normal skin turgor. No skin rashes. Labs & Vitals per chart ASSESSMENT & PLAN 67-year-old male with comorbidities including end-stage renal disease on hemo dialysis Tuesdays//Saturdays, hypertension, diabetes mellitus, anemia, prostatic hypertrophy, hypothyroidism, and CAD status post coronary artery bypass grafting. The patient was brought in from a halfway facility because of fevers and diaphoresis with evidence of hypoxia at the halfway facility. The patient was noticed to have elevated troponins, anemia, and left sided infiltrate on chest x-ray in the emergency room. The patient was admitted to inpatient setting for further treatment and evaluation. 1. NSTEMI. -Etiology unclear. -Prior history of CAD. Unable to start aspirin because of underlying anemia. -Cardiology following. -2D echocardiogram showing preserved left ventricular ejection fraction. 2. Healthcare associated pneumonia. -Continue antimicrobials 3. Acute respiratory failure. -Hypoxic -Most probably secondary to #2. -Continue supplemental oxygen. -Continue inhaled bronchodilators. -CTA negative for any PE. 4. Normocytic anemia. -Etiology unclear. -Transfuse blood products. -Obtain stool for OB. -Gastroenterology consult obtained. -Continue PPI. 5. Acute encephalopathy. -Unknown baseline mental status -Most probably toxic metabolic in origin. -Brain CT scan negative. 6. End-stage renal disease on hemodialysis -Nephrology following. 7. Diabetes mellitus. -Continue the patient on sliding scale insulin along with pre-meal insulin and basal insulin. -Hemoglobin A1c 6.8. 8. History of CAD. -Hold aspirin because of anemia. -Continue statins. -Cardiology follow-up. 9. Hypothyroidism. -Continue Synthroid. 10. Dyslipidemia. -Continue statins. 11. Hypertension. -Continue antihypertensives. 12. Pulmonary hypertension. -PA systolic pressure of 51mm Hg. -Continue supplemental O2. 12. Fluids, electrolytes, and nutrition. -Renal, carbohydrate controlled diet. 13. DVT prophylaxis. -SCD to the left lower extremity. 15. Plan. -Transfuse blood products as needed. -Monitor H&H closely. -Await further recommendations from consultants. The patient was seen in collaboration with Dr. Davies. Result Diagram: 05/04/18 0516 05/04/18 0516 Results 24hrs Laboratory Tests Test 05/03/18 16:27 05/03/18 20:17 05/04/18 05:16 05/04/18 07:58 Bedside Glucose 164 174 137 White Blood Count 8.5 # Red Blood Count 2.95 L Hemoglobin 9.5 L Hematocrit 28.7 L Mean Corpuscular 97.3 Volume Mean Corpuscular 32.2 Hemoglobin Mean Corpuscular 33.1 Hemoglobin Concent Red Cell Distribution 17.2 H Width Platelet Count 120 L Mean Platelet Volume 10.0 Immature Granulocytes 2.100 H % Neutrophils % 74.7 Lymphocytes % 14.0 L Monocytes % 7.3 Eosinophils % 1.8 Basophils % 0.1 Nucleated Red Blood 0.2 H Cells % Immature Granulocytes 0.180 H # Neutrophils # 6.4 Lymphocytes # 1.2 Monocytes # 0.6 Eosinophils # 0.2 Basophils # 0.0 Nucleated Red Blood 0.0 Cells # Sodium Level 143 Potassium Level 4.3 Chloride Level 101 Carbon Dioxide Level 26 Anion Gap 16 H Blood Urea Nitrogen 49 #H Creatinine 6.29 H Est Glomerular 9 L Filtrat Rate mL/min Glucose Level 130 Calcium Level 8.6 Phosphorus Level 4.0 Magnesium Level 2.5 Creatine Kinase 38 Creatine Kinase Index 8.6 Creatinine Kinase MB 3.28 H (Mass) Troponin I 2.020 *H Random Vancomycin 11.3 Level Test 05/04/18 12:06 Bedside Glucose 137 Exam/Review of Systems Exam Vitals Vital Signs Date Temp Pulse Resp B/P (MAP) Pulse Ox O2 O2 Flow FiO2 Time Delivery Rate 05/04/18 67 11:40 05/04/18 98.6 18 141/37 96 Room Air 11:26 (71) 05/04/18 21 01:22 05/03/18 2.0 08:00 Intake and Output 05/03/18 05/03/18 05/04/18 1515:00 23:00 07:00 IntakeIntake Total 760 ml 400 ml OutputOutput Total 60 ml BalanceBalance 700 ml 400 ml Results Results 24hrs Laboratory Tests Test 05/03/18 16:27 05/03/18 20:17 05/04/18 05:16 05/04/18 07:58 Bedside Glucose 164 174 137 White Blood Count 8.5 # Red Blood Count 2.95 L Hemoglobin 9.5 L Hematocrit 28.7 L Mean Corpuscular 97.3 Volume Mean Corpuscular 32.2 Hemoglobin Mean Corpuscular 33.1 Hemoglobin Concent Red Cell Distribution 17.2 H Width Platelet Count 120 L Mean Platelet Volume 10.0 Immature Granulocytes 2.100 H % Neutrophils % 74.7 Lymphocytes % 14.0 L Monocytes % 7.3 Eosinophils % 1.8 Basophils % 0.1 Nucleated Red Blood 0.2 H Cells % Immature Granulocytes 0.180 H # Neutrophils # 6.4 Lymphocytes # 1.2 Monocytes # 0.6 Eosinophils # 0.2 Basophils # 0.0 Nucleated Red Blood 0.0 Cells # Sodium Level 143 Potassium Level 4.3 Chloride Level 101 Carbon Dioxide Level 26 Anion Gap 16 H Blood Urea Nitrogen 49 #H Creatinine 6.29 H Est Glomerular 9 L Filtrat Rate mL/min Glucose Level 130 Calcium Level 8.6 Phosphorus Level 4.0 Magnesium Level 2.5 Creatine Kinase 38 Creatine Kinase Index 8.6 Creatinine Kinase MB 3.28 H (Mass) Troponin I 2.020 *H Random Vancomycin 11.3 Level Test 05/04/18 12:06 Bedside Glucose 137 Medications Medication Current Medications IV Flush (NS 3 ml) 3 ml PER PROTOCOL IV ; Start 05/01/18 at 16:00 Levalbuterol (Xopenex Neb) 0.63 mg Q6H RESP THERAPY HHN Last administered on 05/04/18 01:22; Admin Dose 0.63 MG; Start 05/01/18 at 20:00 Insulin Aspart (Novolog Insulin Pen) NOVOLOG *MILD* ALGORITHM WITH MEALS BEDTIME SC Last administered on 05/03/18 16:34; Admin Dose 1 UNIT; Start 05/01/18 at 18:00 Ascorbic Acid (Vitamin C) 500 mg DAILY PO Last administered on 05/04/18 08:26; Admin Dose 500 MG; Start 05/02/18 at 09:00 Docusate Sodium (Colace) 200 mg HS PO Last administered on 05/03/18 20:19; Admin Dose 200 MG; Start 05/01/18 at 21:00 Ferrous Sulfate (Ferrous Sulfate (Ec)) 325 mg DAILY PO Last administered on 05/04/18 08:29; Admin Dose 325 MG; Start 05/02/18 at 09:00 Levothyroxine Sodium (Synthroid) 50 mcg BEFORE BREAKFAST PO Last administered on 05/04/18 06:56; Admin Dose 50 MCG; Start 05/02/18 at 07:00 Multivitamins Therapeutic (Theragran) 1 tab DAILY PO Last administered on 05/04/18 08:26; Admin Dose 1 TAB; Start 05/02/18 at 09:00 Sevelamer Carbonate (Renvela) 0.8 gm WITH MEALS PO Last administered on 05/04/18 08:26; Admin Dose 0.8 GM; Start 05/01/18 at 18:00 Atorvastatin Calcium (Lipitor) 40 mg QHS PO Last administered on 05/03/18 20:19; Admin Dose 40 MG; Start 05/01/18 at 21:00 Cefepime HCl 50 ml @ 100 mls/hr Q24H IVPB Last administered on 05/03/18 12:08; Admin Dose 100 MLS/HR; Start 05/02/18 at 12:00 Vancomycin HCl (Vanco Iv Per Pharmacy) VANCOMYCIN PER PHARMACY PER PROTOCOL XX ; Start 05/02/18 at 07:30 Epoetin Gato (Epogen (Esrd)) 10,000 units MoWeFr@17 SC Last administered on 05/02/18 18:18; Admin Dose 10,000 UNITS; Start 05/02/18 at 17:00 Pantoprazole (Protonix Iv) 40 mg BID@06,18 IV Last administered on 05/04/18at 06:56; Admin Dose 40 MG; Start 05/02/18 at 12:30 Lactulose (Enulose) 20 gm Q4 PO Last administered on 05/04/18at 08:26; Admin Dose 20 GM; Start 05/03/18 at 13:00 Carvedilol (Coreg) 3.125 mg BID PO Last administered on 05/03/18at 20:20; Admin Dose 3.125 MG; Start 05/03/18 at 15:00 Vancomycin HCl 250 ml @ 125 mls/hr ONCE ONCE IVPB ; Start 05/04/18 at 15:00; Stop 05/04/18 at 16:59 YOSEF MILLER NP May 04, 2018 12:34
[2018-05-04] MEDS ORDERED: ONDANSETRON 4 MG INJ IV PRN (14:00)
[2018-05-04] MEDS ORDERED: VANCOMYCIN 1 GM 250 ML IVPB ONE (15:00)
[2018-05-04] MEDS ORDERED: HEPARIN 1000 UNITS/ML 10 ML INJ CATHETER ONE (15:00)
[2018-05-04] MEDS ORDERED: ACETAMINOPHEN 500 MG TAB PO PRN (17:00)
[2018-05-04] MEDS: ATORVASTATIN 40 MG TAB PO SCH (20:49)
[2018-05-04] MEDS: DOCUSATE SODIUM 100 MG CAP PO SCH (20:49)
--- NOTE | 2018-05-04 23:30 | CONS ---
Assessment/Plan Assessment/Plan Hospital Course (Demo Recall) - fever, diaphoresis and chills associated with dialysis prior to admission and again today, concerning for possible catheter related bloodstream infection. Another possibility is fever due to GIB - ESRD on HD via HD catheter on R chest wall. Pt does not remember how old the catheter is - GIB, scheduled for EGD on 05/05/2018 - DM - CAD - LLL infiltrate vs. atelectasis on CXR upon admission but Pt does not have resp Sx - s/p type 2 AR vs. demand ischemia due to acute on chronic anemia - acute on chronic anemia - prostatic hypertrophy - hypothyroidism - s/p coronary artery bypass grafting - h/o previous AR - h/o diabetic wound of RLE - status post right BKA recommendations - I recommended repeat pancultures plus lactic acid and explained the indications, but Pt declined them saying that he feels that he has had excessive number of tests, reasons for the test have not been clear to him. He said that a provider informed him that his blood cultures were negative and therefore, did not feel the same tests had to be repeated. I discussed their indication but he did not want to have these tests tonight. but he agreed with urine culture if he urinates. I ordered urinalysis and urine culture tonight, and blood cultures, lactic acid, procalcitonin, CXR in the morning. - we will order blood cultures from his dialysis catheter at his next HD on 05/06/2018 - I recommend continuing IV vancomycin (05/02/2018-), and change cefepime to renally dosed meropenem (05/05/2018-) - order changed - management d/w Pt and her RN Roberto Consultation Date/Type/Reason Admit Date/Time May 01, 2018 at 13:32 Date of Consultation: May 04, 2018 Type of Consult ID Reason for Consultation fever Requesting Provider: YOSEF REYNA NP Date/Time of Note DATE: 05/04/18 TIME: 23:07 Hx of Present Illness This is a 67 yo male with DM, CAD, ESRD on HD via HD catheter on R chest wall. Pt was brought to ER on 05/01/2018 because he had temp 103F, and acute hypoxic resp failure at HD center. Upon arrival at ER, his temp was 100.4F. He did not have leukocytosis. His lab was significant for anemia Hgb 6.8 and elevated troponin. His CXR showed possible LLL infiltrate vs. atelectasis. He tested negative for influenza and blood cultures x2 upon admission were negative. Pt has been receiving IV vancomycin and cefepime. During this admission, his troponin continued to increase, highest at 3.14 on 05/04/2018. He sustained type 2 AR vs. demand ischemia due to acute on chronic anemia. The source of anemia has been attributed to GIB as he had upper GIB recently. Pt was evaluated by GI, and despite his cardiac risk, it was deemed necessary to proceed with EGD tomorrow. Today his HD started at approximately at 11:00 am. during this dialysis, Pt was initially diaphoretic, and then he felt chills. Subsequently, he felt nauseated and had UGIB. At that time, temp was reportedly 100.6F. This afternoon his temp increased to 103F. As of my interview, his temp normalized. Aside from the above, Pt did not have other Sx such as PLASENCIA, r espiratory Sx. He makes little urine and denies dysuria. LIZ Reyna requested ID consultation on this Pt. Constitutional: chills, diaphoresis, febrile Eyes: no complaints ENT: no complaints Respiratory: no complaints Cardiovascular: no complaints Gastrointestinal: nausea, vomiting Genitourinary: other (makes little urine); No dysuria Musculoskeletal: other (s/p R BKA) Skin: no complaints Neurologic: no complaints Past Medical History Medical History: angina, congestive heart failure, coronary artery disease, diabetes, GI bleed, hypertension, hypothyroid, renal disease Home Meds Reported Medications Polyvinyl Alcohol (Tears Again) 15 Ml Drops, 15 ML OP DAILY PRN for DRY EYES, BOTTLE 05/01/18 Ondansetron Hcl* (Zofran*) 4 Mg Tab, 4 MG PO Q6H PRN for NAUSEA AND OR VOMITING, TAB 05/01/18 Ascorbic Acid* (Vitamin C*) 500 Mg Capsule.sa, 500 MG PO DAILY, CAP 05/01/18 Acetaminophen* (Acetaminophen*) 500 MG Extra Strength Tablet, 1000 MG PO Q4H PRN for MILD PAIN(1-3)OR ELEVATED TEMP, TAB 05/01/18 Acetaminophen* (Acetaminophen*) 325 Mg Tablet, 325 MG PO Q4H PRN for PAIN AND OR ELEVATED TEMP, #30 TAB 05/01/18 Levothyroxine Sodium* (Levoxyl*) 50 Mcg Tablet, 50 MCG PO BEFORE BREAKFAST, #30 TAB 05/01/18 Sevelamer Carbonate* (Renvela*) 800 Mg Tablet, 0.8 GM PO WITH MEALS, TAB 05/01/18 Multivitamins* (Theragran*) 1 Tab Tab, 1 TAB PO DAILY, TAB 05/01/18 Atorvastatin Calcium* (Atorvastatin Calcium*) 20 Mg Tablet, 20 MG PO QHS, #30 TAB 05/01/18 Lisinopril* (Lisinopril*) 20 Mg Tablet, 20 MG PO DAILY for MON,WED,FRI,SUN., #30 TAB 05/01/18 Atorvastatin Calcium* (Atorvastatin Calcium*) 20 Mg Tablet, 20 MG PO QHS, #30 T AB 05/01/18 Insulin Glargine* (Lantus*) 100 Unit/Ml Soln, 10 UNIT SC QHS, #1 VIAL 05/01/18 Ferrous Sulfate* (Ferrous Sulfate*) 325 Mg Tabec, 325 MG PO DAILY, TAB 05/01/18 Cranberry Extract (Cranberry) 425 Mg Capsule, 425 MG PO DAILY, CAP 05/01/18 Carvedilol* (Coreg*) 6.25 Mg Tablet, 6.25 MG PO BID for TUE,GUERO,SAT, #60 TAB 05/01/18 Docusate Sodium* (Docusate Sodium*) 100 Mg Capsule, 200 MG PO HS, #60 CAP 05/01/18 Cyanocobalamin/FA/Pyridoxine (B Complex-Folic Acid Tablet) 1 Each Tablet, 1 TAB PO DAILY, TAB 05/01/18 Aspirin* (Aspirin* Chew) 81 Mg Tab.chew, 81 MG PO DAILY, TAB.CHEW 05/01/18 Medications Current Medications IV Flush (NS 3 ml) 3 ml PER PROTOCOL IV ; Start 05/01/18 at 16:00 Levalbuterol (Xopenex Neb) 0.63 mg Q6H RESP THERAPY HHN Last administered on 05/04/18at 21:15; Admin Dose 0.63 MG; Start 05/01/18 at 20:00 Insulin Aspart (Novolog Insulin Pen) NOVOLOG *MILD* ALGORITHM WITH MEALS BEDTIME SC Last administered on 05/04/18at 20:56; Admin Dose 2 UNIT; Start 05/01/18 at 18:00 Ascorbic Acid (Vitamin C) 500 mg DAILY PO Last administered on 05/04/18 08:26; Admin Dose 500 MG; Start 05/02/18 at 09:00 Docusate Sodium (Colace) 200 mg HS PO Last administered on 05/04/18 20:49; Admin Dose 200 MG; Start 05/01/18 at 21:00 Ferrous Sulfate (Ferrous Sulfate (Ec)) 325 mg DAILY PO Last administered on 04/25 08:29; Admin Dose 325 MG; Start 05/02/18 at 09:00 Levothyroxine Sodium (Synthroid) 50 mcg BEFORE BREAKFAST PO Last administered on 05/04/18 06:56; Admin Dose 50 MCG; Start 05/02/18 at 07:00 Multivitamins Therapeutic (Theragran) 1 tab DAILY PO Last administered on 05/04/18 08:26; Admin Dose 1 TAB; Start 05/02/18 at 09:00 Sevelamer Carbonate (Renvela) 0.8 gm WITH MEALS PO Last administered on 05/04/18 17:25; Admin Dose 0.8 GM; Start 05/01/18 at 18:00 Atorvastatin Calcium (Lipitor) 40 mg QHS PO Last administered on 05/04/18 20:49; Admin Dose 40 MG; Start 05/01/18 at 21:00 Cefepime HCl 50 ml @ 100 mls/hr Q24H IVPB Last administered on 05/03/18 12:08; Admin Dose 100 MLS/HR; Start 05/02/18 at 12:00 Vancomycin HCl (Vanco Iv Per Pharmacy) VANCOMYCIN PER PHARMACY PER PROTOCOL XX ; Start 05/02/18 at 07:30 Epoetin Gato (Epogen (Esrd)) 10,000 units MoWeFr@17 SC Last administered on 05/02/18 18:18; Admin Dose 10,000 UNITS; Start 05/02/18 at 17:00 Pantoprazole (Protonix Iv) 40 mg BID@06,18 IV Last administered on 05/04/18 17:25; Admin Dose 40 MG; Start 05/02/18 at 12:30 Lactulose (Enulose) 20 gm Q4 PO Last administered on 05/04/18 20:49; Admin Dose 20 GM; Start 05/03/18 at 13:00 Carvedilol (Coreg) 3.125 mg BID PO Last administered on 05/04/18at 20:49; Admin Dose 3.125 MG; Start 05/03/18 at 15:00 Ondansetron HCl (Zofran Inj) 4 mg Q4H PRN IV NAUSEA AND/OR VOMITING Last administered on 05/04/18at 14:05; Admin Dose 4 MG; Start 05/04/18 at 14:00 Acetaminophen (Tylenol Tab) 500 mg Q6H PRN PO MILD PAIN(1-3)OR ELEVATED TEMP; Start 05/04/18 at 17:00 Allergies: Coded Allergies: No Known Allergy (Unverified , 05/01/18) Past Surgical History Past Surgical Hx: other (CABG, R BKA, HD catheter placement) Social History Alcohol Use: none Smoking Status: Never smoker Drug Use: none Exam/Review of Systems Exam Vitals Vital Signs Date Temp Pulse Resp B/P (MAP) Pulse Ox O2 O2 Flow FiO2 Time Delivery Rate 05/04/18 72 20 97 21 21:17 05/04/18 99.7 98/51 (67) 19:43 05/04/18 Room Air 15:57 05/03/18 2.0 08:00 Intake and Output 05/03/18 05/03/18 05/04/18 1414:59 22:59 06:59 IntakeIntake Total 760 ml 400 ml OutputOutput Total 60 ml BalanceBalance 700 ml 400 ml Constitutional: alert, oriented Psych: no complaints, nl mood/affect Head: normocephalic, atraumatic Eyes: nl conjunctiva, EOMI, nl lids, nl sclera ENMT: nl external ears & nose, nl lips & teeth, nl nasal mucosa & septum, mucosa pink and moist Neck: supple, non-tender Respiratory: clear to auscultation, normal air movement Cardiovascular: regular rate and rhythm, nl pulses Gastrointestinal: soft, nl liver, spleen, non-tender Musculoskeletal: other (s/p R BKA); No swelling Extremities: normal pulses; No edema Neurological: [employer] II-XII intact, nl mental status, nl speech Skin: nl turgor; No rash or lesions Results Result Diagram: 05/04/1851505/04/18515 Results 24hrs Laboratory Tests Test 05/04/18 05:16 05/04/18 07:58 05/04/18 12:06 05/04/18 17:25 White Blood Count 8.5 # Red Blood Count 2.95 L Hemoglobin 9.5 L Hematocrit 28.7 L Mean Corpuscular 97.3 Volume Mean Corpuscular 32.2 Hemoglobin Mean Corpuscular 33.1 Hemoglobin Concent Red Cell 17.2 H Distribution Width Platelet Count 120 L Mean Platelet Volume 10.0 Immature 2.100 H Granulocytes % Neutrophils % 74.7 Lymphocytes % 14.0 L Monocytes % 7.3 Eosinophils % 1.8 Basophils % 0.1 Nucleated Red Blood 0.2 H Cells % Immature 0.180 H Granulocytes # Neutrophils # 6.4 Lymphocytes # 1.2 Monocytes # 0.6 Eosinophils # 0.2 Basophils # 0.0 Nucleated Red Blood 0.0 Cells # Sodium Level 143 Potassium Level 4.3 Chloride Level 101 Carbon Dioxide Level 26 Anion Gap 16 H Blood Urea Nitrogen 49 #H Creatinine 6.29 H Est Glomerular 9 L Filtrat Rate mL/min Glucose Level 130 Calcium Level 8.6 Phosphorus Level 4.0 Magnesium Level 2.5 Creatine Kinase 38 Creatine Kinase 8.6 Index Creatinine Kinase MB 3.28 H (Mass) Troponin I 2.020 *H Amylase Level 80 Lipase 67 Random Vancomycin 11.3 Level Bedside Glucose 137 137 170 Test 05/04/18 20:47 Bedside Glucose 254 H Medications Medication Current Medications IV Flush (NS 3 ml) 3 ml PER PROTOCOL IV ; Start 05/01/18 at 16:00 Levalbuterol (Xopenex Neb) 0.63 mg Q6H RESP THERAPY HHN Last administered on 05/04/18at 21:15; Admin Dose 0.63 MG; Start 05/01/18 at 20:00 Insulin Aspart (Novolog Insulin Pen) NOVOLOG *MILD* ALGORITHM WITH MEALS BEDTIME SC Last administered on 05/04/18at 20:56; Admin Dose 2 UNIT; Start 05/01/18 at 18:00 Ascorbic Acid (Vitamin C) 500 mg DAILY PO Last administered on 05/04/18at 08:26; Admin Dose 500 MG; Start 05/02/18 at 09:00 Docusate Sodium (Colace) 200 mg HS PO Last administered on 05/04/18at 20:49; Admin Dose 200 MG; Start 05/01/18 at 21:00 Ferrous Sulfate (Ferrous Sulfate (Ec)) 325 mg DAILY PO Last administered on 05/04/18 08:29; Admin Dose 325 MG; Start 05/02/18 at 09:00 Levothyroxine Sodium (Synthroid) 50 mcg BEFORE BREAKFAST PO Last administered on 05/04/18 06:56; Admin Dose 50 MCG; Start 05/02/18 at 07:00 Multivitamins Therapeutic (Theragran) 1 tab DAILY PO Last administered on 05/04/18 08:26; Admin Dose 1 TAB; Start 05/02/18 at 09:00 Sevelamer Carbonate (Renvela) 0.8 gm WITH MEALS PO Last administered on 05/04/18 17:25; Admin Dose 0.8 GM; Start 05/01/18 at 18:00 Atorvastatin Calcium (Lipitor) 40 mg QHS PO Last administered on 05/04/18 20:49; Admin Dose 40 MG; Start 05/01/18 at 21:00 Cefepime HCl 50 ml @ 100 mls/hr Q24H IVPB Last administered on 05/03/18 12:08; Admin Dose 100 MLS/HR; Start 05/02/18 at 12:00 Vancomycin HCl (Vanco Iv Per Pharmacy) VANCOMYCIN PER PHARMACY PER PROTOCOL XX ; Start 05/02/18 at 07:30 Epoetin Gato (Epogen (Esrd)) 10,000 units MoWeFr@17 SC Last administered on 05/02/18 18:18; Admin Dose 10,000 UNITS; Start 05/02/18 at 17:00 Pantoprazole (Protonix Iv) 40 mg BID@06,18 IV Last administered on 05/04/18 17:25; Admin Dose 40 MG; Start 05/02/18 at 12:30 Lactulose (Enulose) 20 gm Q4 PO Last administered on 05/04/18 20:49; Admin Dose 20 GM; Start 05/03/18 at 13:00 Carvedilol (Coreg) 3.125 mg BID PO Last administered on 05/04/18 20:49; Admin Dose 3.125 MG; Start 05/03/18 at 15:00 Ondansetron HCl (Zofran Inj) 4 mg Q4H PRN IV NAUSEA AND/OR VOMITING Last admin istered on 05/04/18 14:05; Admin Dose 4 MG; Start 05/04/18 at 14:00 Acetaminophen (Tylenol Tab) 500 mg Q6H PRN PO MILD PAIN(1-3)OR ELEVATED TEMP; Start 05/04/18 at 17:00 AB LYN M.D. May 04, 2018 23:20
[2018-05-05] VITALS (13 sets, daily range): BP systolic 105–133; BP diastolic 6–60; PULSE 61–150; RESP 18–21
[2018-05-05] MEDS: LACTULOSE 30ML CUP PO SCH ×5 (02:03→17:00)
[2018-05-05] MEDS: LEVALBUTEROL (NEB) 0.63 MG/3 ML AMP HHN SCH ×3 (02:32→13:35)
[2018-05-05] MEDS: PANTOPRAZOLE 40 MG INJ IV SCH ×2 (06:00→17:14)
[2018-05-05] MEDS: LEVOTHYROXINE 50 MCG TAB PO SCH (06:00)
--- NOTE | 2018-05-05 06:48 | PN ---
DATE: 05/04/2018 SUBJECTIVE: The patient is admitted with a substernal discomfort and severe anemia. GI consultation was requested because of the anemia; however, I was told by the nurse that patient vomited coffee-gr ound material. PHYSICAL EXAMINATION: GENERAL: The patient seems to be alert. VITAL SIGNS: Pulse is 86, blood pressure is 110/78. CARDIOVASCULAR: Normal heart sounds. RESPIRATORY: Normal breath sounds. ABDOMEN: Showed soft abdomen with no palpable masses, no tenderness, no distention. LABORATORY WORKUP: Shows WBC is 8500, hemoglobin 9.5. Potassium 4.3. Troponin has come down to 2.0 2. CLINICAL IMPRESSION: The patient vomited and no evidence of obstruction clinically of the abdomen. No tenderness to consider any inflammatory process; however rule out pancreatitis, cholecystitis, bow el obstruction. Rule out upper gastrointestinal bleeding due to peptic ulcer disease. PLAN: At this time, I recommend upper endoscopy, KUB, amylase and lipase and Dr. Jimenez already lundberg s cleared the patient considering the fact that the patient is of high risk. Dictated By: ALMA DELIA URIAS/SEA Conf#: [id number] DID#: [id number] CC: NHUNG STUBBS MD;*EndCC*
[2018-05-05] MEDS: INSULIN ASPART [NOVOLOG] 3 ML PEN SC SCH ×4 (08:00→19:49)
[2018-05-05] MEDS: FERROUS SULFATE (EC) 325 MG TAB PO SCH (08:27)
[2018-05-05] MEDS: MULTIVITAMINS THERAPEUTIC TAB PO SCH (08:27)
[2018-05-05] MEDS: SEVELAMER CARBONATE 0.8 GM PKT PO SCH ×3 (08:27→17:14)
[2018-05-05] MEDS: ASCORBIC ACID 500 MG TAB PO SCH (08:27)
--- NOTE | 2018-05-05 09:44 | CONS ---
Assessment/Plan Assessment/Plan Hospital Course (Demo Recall) - fever, diaphoresis and chills associated with dialysis prior to admission and again today, concerning for possible catheter related bloodstream infection. Another possibility is fever due to GIB - ESRD on HD via HD catheter on R chest wall. Pt does not remember how old the catheter is - GIB, scheduled for EGD on 05/05/2018 - DM - CAD - LLL infiltrate vs. atelectasis on CXR upon admission but Pt does not have resp Sx - s/p type 2 ME vs. demand ischemia due to acute on chronic anemia - acute on chronic anemia - prostatic hypertrophy - hypothyroidism - s/p coronary artery bypass grafting - h/o previous ME - h/o diabetic wound of RLE - status post right BKA Recommendations: - Pending: CXR from am (taken), Blood cultures from 05/01/18 (NGTD), Repeat blood cultures 05/05/18 (in process), procalcitonin, UA/Urine culture (pt agreed to send this if he urinates), - Ordered: Blood cultures x2 to be done with his next HD tomorrow 05/06/18 - Continue IV vancomycin (05/02/2018-), renally dosed meropenem (05/05/2018-) Management d/w patient and with Dr. Aviles. Thank you Consultation Date/Type/Reason Admit Date/Time May 01, 2018 at 13:32 Initial Consult Date 05/04/18 Type of Consult ID Requesting Provider: YOSEF MILLER NP Date/Time of Note DATE: 05/05/18 TIME: 09:35 24 HR Interval Summary Free Text/Dictation Patient stated he did not make any urine yet for ua/cx. HD tomorrow. Aware and agrees to blood cxs from HD line with HD tomorrow. Denies fevers, chills, night sweats, sob, cough, n/v/d, abd pain, dysuria, pr uritis, rash. Exam/Review of Systems Exam Vitals Vital Signs Date Temp Pulse Resp B/P (MAP) Pulse Ox O2 O2 Flow FiO2 Time Delivery Rate 05/05/18 69 18 96 21 08:38 05/05/18 98.3 111/57 07:15 (75) 05/04/18 Room Air 15:57 05/03/18 2.0 08:00 Intake and Output 05/04/18 05/04/18 05/05/18 1515:00 23:00 07:00 IntakeIntake Total 1690 ml 250 ml OutputOutput Total 2400 ml BalanceBalance -2400 ml 1690 ml 250 ml Allergies Coded Allergies No Known Allergy (Unverified05/01/18) Constitutional: alert, oriented, well developed Psych: no complaints, nl mood/affect Head: normocephalic Eyes: nl conjunctiva, nl lids, nl sclera ENMT: nl external ears & nose, nl nasal mucosa & septum, mucosa pink and moist Neck: supple, non-tender Respiratory: clear to auscultation, normal air movement Cardiovascular: regular rate and rhythm, nl pulses Gastrointestinal: soft, non-tender, bowel sounds (normoactive ) Genitourinary - Male: other (Right chest HD catheter - site is c/d/i without erythema, drainage, or tenderness around the catheter site. ) Extremities: other (R healed BKA) Neurological: FLOORWORKER II-XII intact, nl mental status, nl speech, nl strength Skin: nl turgor; No rash or lesions Results Result Diagram: 05/05/18 0546 05/05/18 0546 Results 24hrs Laboratory Tests Test 05/04/18 12:06 05/04/18 17:25 05/04/18 20:47 05/05/18 05:46 Bedside Glucose 137 170 254 H White Blood Count 17.9 #H Red Blood Count 3.04 L Hemoglobin 9.8 L Hematocrit 30.1 L Mean Corpuscular 99.0 Volume Mean Corpuscular 32.2 Hemoglobin Mean Corpuscular 32.6 Hemoglobin Concen t Red Cell 17.2 H Distribution Width Platelet Count 140 Mean Platelet 10.2 Volume Immature 1.000 H Granulocytes % Neutrophils % 88.7 H Lymphocytes % 5.4 L Monocytes % 4.3 Eosinophils % 0.3 Basophils % 0.3 Nucleated Red 0.1 H Blood Cells % Immature 0.170 H Granulocytes # Neutrophils # 15.9 H Lymphocytes # 1.0 Monocytes # 0.8 Eosinophils # 0.1 Basophils # 0.1 Nucleated Red 0.0 Blood Cells # Sodium Level 145 H Potassium Level 4.0 Chloride Level 103 Carbon Dioxide 25 Level Anion Gap 17 H Blood Urea 37 #H Nitrogen Creatinine 5.19 H Est Glomerular 11 L Filtrat Rate mL/min Glucose Level 153 Lactic Acid Level 1.1 Calcium Level 9.0 Phosphorus Level 3.5 Magnesium Level 2.4 Total Bilirubin 0.5 Direct Bilirubin 0.00 Indirect 0.5 Bilirubin Aspartate Amino 25 Transf (AST/SGOT) Alanine 33 Aminotransferase (ALT/SGPT) Alkaline 164 H Phosphatase Creatine Kinase 29 Creatine Kinase 6.8 Index Creatinine Kinase 1.98 MB (Mass) Troponin I 1.380 *H Total Protein 7.5 Albumin 4.0 Globulin 3.50 H Albumin/Globulin 1.14 Ratio Test 05/05/18 08:15 05/05/18 09:10 Bedside Glucose 136 Lab Scanned BLOOD TRANSFUSIO Report N Imaging Imaging Abd XR 05/04/18 IMPRESSION: No radiographic evidence of small bowel obstruction Medications Medication Current Medications IV Flush (NS 3 ml) 3 ml PER PROTOCOL IV ; Start 05/01/18 at 16:00 Levalbuterol (Xopenex Neb) 0.63 mg Q6H RESP THERAPY HHN Last administered on 05/05/18 08:38; Admin Dose 0.63 MG; Start 05/01/18 at 20:00 Insulin Aspart (Novolog Insulin Pen) NOVOLOG *MILD* ALGORITHM WITH MEALS BEDTIME SC Last administered on 05/04/18 20:56; Admin Dose 2 UNIT; Start 05/01/18 at 18:00 Ascorbic Acid (Vitamin C) 500 mg DAILY PO Last administered on 05/05/18 08:27; Admin Dose 500 MG; Start 05/02/18 at 09:00 Docusate Sodium (Colace) 200 mg HS PO Last administered on 05/04/18 20:49; Admin Dose 200 MG; Start 05/01/18 at 21:00 Ferrous Sulfate (Ferrous Sulfate (Ec)) 325 mg DAILY PO Last administered on 05/05/18 08:27; Admin Dose 325 MG; Start 05/02/18 at 09:00 Levothyroxine Sodium (Synthroid) 50 mcg BEFORE BREAKFAST PO Last administered on 05/05/18 06:00; Admin Dose 50 MCG; Start 05/02/18 at 07:00 Multivitamins Therapeutic (Theragran) 1 tab DAILY PO Last administered on 05/05/18 08:27; Admin Dose 1 TAB; Start 05/02/18 at 09:00 Sevelamer Carbonate (Renvela) 0.8 gm WITH MEALS PO Last administered on 05/05/18 08:27; Admin Dose 0.8 GM; Start 05/01/18 at 18:00 Atorvastatin Calcium (Lipitor) 40 mg QHS PO Last administered on 05/04/18 20:49; Admin Dose 40 MG; Start 05/01/18 at 21:00 Vancomycin HCl (Vanco Iv Per Pharmacy) VANCOMYCIN PER PHARMACY PER PROTOCOL XX ; Start 05/02/18 at 07:30 Epoetin Gato (Epogen (Esrd)) 10,000 units MoWeFr@17 SC Last administered on 05/02/18 18:18; Admin Dose 10,000 UNITS; Start 05/02/18 at 17:00 Pantoprazole (Protonix Iv) 40 mg BID@06,18 IV Last administered on 05/05/18 06:00; Admin Dose 40 MG; Start 05/02/18 at 12:30 Lactulose (Enulose) 20 gm Q4 PO Last administered on 05/05/18 06:00; Admin Dose 20 GM; Start 05/03/18 at 13:00 Carvedilol (Coreg) 3.125 mg BID PO Last administered on 05/05/18 08:30; Admin Dose 3.125 MG; Start 05/03/18 at 15:00 Ondansetron HCl (Zofran Inj) 4 mg Q4H PRN IV NAUSEA AND/OR VOMITING Last admi nistered on 05/04/18 14:05; Admin Dose 4 MG; Start 05/04/18 at 14:00 Acetaminophen (Tylenol Tab) 500 mg Q6H PRN PO MILD PAIN(1-3)OR ELEVATED TEMP; Start 05/04/18 at 17:00 Meropenem/Sodium Chloride 50 ml @ 100 mls/hr Q24H IVPB ; Start 05/05/18 at 09:00 DIAMANTE LU NP May 05, 2018 09:44
--- NOTE | 2018-05-05 10:09 | PREAC ---
Date/Time of Note Date/Time of Note DATE: 05/05/18 TIME: 10:00 Anesthesia Eval and Record Evaluation Time Pre-Procedure Interview DATE: 05/05/18 TIME: 10:00 Age 67 Sex male NPO: 8 hrs Preoperative diagnosis anemia Planned procedure EGD Past Medical History Past Medical History: Includes Cardio: HTN, Dyslipidemia, [place] (NSTEMI), CAD ( ), CABG Endo: Diabetes Pulm: Other (pneumonia) Renal: ESRD on dialysis, BPH Heme: Anemia Surgery & Anesthesia Issues No known issue Meds Anticoagulation: No Beta Chaitanya within 24 hr: Yes Reason Beta Chaitanya not given: Bradycarida, Hypotension Reported Medications Polyvinyl Alcohol (Tears Again) 15 Ml Drops, 15 ML OP DAILY PRN for DRY EYES, BOTTLE 05/01/18 Ondansetron Hcl* (Zofran*) 4 Mg Tab, 4 MG PO Q6H PRN for NAUSEA AND OR VOMITING, TAB 05/01/18 Ascorbic Acid* (Vitamin C*) 500 Mg Capsule.sa, 500 MG PO DAILY, CAP 05/01/18 Acetaminophen* (Acetaminophen*) 500 MG Extra Strength Tablet, 1000 MG PO Q4H PRN for MILD PAIN(1-3)OR ELEVATED TEMP, TAB 05/01/18 Acetaminophen* (Acetaminophen*) 325 Mg Tablet, 325 MG PO Q4H PRN for PAIN AND OR ELEVATED TEMP, #30 TAB 05/01/18 Levothyroxine Sodium* (Levoxyl*) 50 Mcg Tablet, 50 MCG PO BEFORE BREAKFAST, #30 TAB 05/01/18 Sevelamer Carbonate* (Renvela*) 800 Mg Tablet, 0.8 GM PO WITH MEALS, TAB 05/01/18 Multivitamins* (Theragran*) 1 Tab Tab, 1 TAB PO DAILY, TAB 05/01/18 Atorvastatin Calcium* (Atorvastatin Calcium*) 20 Mg Tablet, 20 MG PO QHS, #30 TAB 05/01/18 Lisinopril* (Lisinopril*) 20 Mg Tablet, 20 MG PO DAILY for MON,WED,FRI,SUN., #30 TAB 05/01/18 Atorvastatin Calcium* (Atorvastatin Calcium*) 20 Mg Tablet, 20 MG PO QHS, #30 TAB 05/01/18 Insulin Glargine* (Lantus*) 100 Unit/Ml Soln, 10 UNIT SC QHS, #1 VIAL 05/01/18 Ferrous Sulfate* (Ferrous Sulfate*) 325 Mg Tabec, 325 MG PO DAILY, TAB 05/01/18 Cranberry Extract (Cranberry) 425 Mg Capsule, 425 MG PO DAILY, CAP 05/01/18 Carvedilol* (Coreg*) 6.25 Mg Tablet, 6.25 MG PO BID for TUE,GUERO,SAT, #60 TAB 05/01/18 Docusate Sodium* (Docusate Sodium*) 100 Mg Capsule, 200 MG PO HS, #60 CAP 05/01/18 Cyanocobalamin/FA/Pyridoxine (B Complex-Folic Acid Tablet) 1 Each Tablet, 1 TAB PO DAILY, TAB 05/01/18 Aspirin* (Aspirin* Chew) 81 Mg Tab.chew, 81 MG PO DAILY, TAB.CHEW 05/01/18 Current Medications IV Flush (NS 3 ml) 3 ml PER PROTOCOL IV ; Start 05/01/18 at 16:00 Levalbuterol (Xopenex Neb) 0.63 mg Q6H RESP THERAPY HHN Last administered on 05/05/18 08:38; Admin Dose 0.63 MG; Start 05/01/18 at 20:00 Insulin Aspart (Novolog Insulin Pen) NOVOLOG *MILD* ALGORITHM WITH MEALS BEDTIME SC Last administered on 05/04/18 20:56; Admin Dose 2 UNIT; Start 05/01/18 at 18:00 Ascorbic Acid (Vitamin C) 500 mg DAILY PO Last administered on 05/05/18 08:27; Admin Dose 500 MG; Start 05/02/18 at 09:00 Docusate Sodium (Colace) 200 mg HS PO Last administered on 05/04/18 20:49; Admin Dose 200 MG; Start 05/01/18 at 21:00 Ferrous Sulfate (Ferrous Sulfate (Ec)) 325 mg DAILY PO Last administered on 05/05/18 08:27; Admin Dose 325 MG; Start 05/02/18 at 09:00 Levothyroxine Sodium (Synthroid) 50 mcg BEFORE BREAKFAST PO Last administered on 05/05/18 06:00; Admin Dose 50 MCG; Start 05/02/18 at 07:00 Multivitamins Therapeutic (Theragran) 1 tab DAILY PO Last administered on 05/05/18 08:27; Admin Dose 1 TAB; Start 05/02/18 at 09:00 Sevelamer Carbonate (Renvela) 0.8 gm WITH MEALS PO Last administered on 05/05/18 08:27; Admin Dose 0.8 GM; Start 05/01/18 at 18:00 Atorvastatin Calcium (Lipitor) 40 mg QHS PO Last administered on 05/04/18 20:49; Admin Dose 40 MG; Start 05/01/18 at 21:00 Vancomycin HCl (Vanco Iv Per Pharmacy) VANCOMYCIN PER PHARMACY PER PROTOCOL XX ; Start 05/02/18 at 07:30 Epoetin Gato (Epogen (Esrd)) 10,000 units MoWeFr@17 SC Last administered on 05/02/18 18:18; Admin Dose 10,000 UNITS; Start 05/02/18 at 17:00 Pantoprazole (Protonix Iv) 40 mg BID@06,18 IV Last administered on 05/05/18at 06:00; Admin Dose 40 MG; Start 05/02/18 at 12:30 Lactulose (Enulose) 20 gm Q4 PO Last administered on 05/05/18at 06:00; Admin Dose 20 GM; Start 05/03/18 at 13:00 Carvedilol (Coreg) 3.125 mg BID PO Last administered on 05/05/18 08:30; Admin Dose 3.125 MG; Start 05/03/18 at 15:00 Ondansetron HCl (Zofran Inj) 4 mg Q4H PRN IV NAUSEA AND/OR VOMITING Last administered on 05/04/18at 14:05; Admin Dose 4 MG; Start 05/04/18 at 14:00 Acetaminophen (Tylenol Tab) 500 mg Q6H PRN PO MILD PAIN(1-3)OR ELEVATED TEMP; Start 05/04/18 at 17:00 Meropenem/Sodium Chloride 50 ml @ 100 mls/hr Q24H IVPB ; Start 05/05/18 at 09:00 Meds reviewed: Yes Allergies Coded Allergies: No Known Allergy (Unverified , 05/01/18) Allergies Reviewed: Yes Labs/Studies Labs Reviewed: Reviewed by anesthesiologist Result Diagram: 05/05/18 0546 05/05/18 0546 Laboratory Tests 05/05/18 05:46 test: N/A Pre-procedure Exam Last vitals Vital Signs Date Temp Pulse Resp B/P (MAP) Pulse Ox O2 O2 Flow FiO2 Time Delivery Rate 05/05/18 69 18 96 21 08:38 05/05/18 98.3 111/57 07:15 (75) 05/04/18 Room Air 15:57 05/03/18 2.0 08:00 Airway: Adequate mouth opening, Adequate thyromental dist Mallampati: Mallampati II Teeth: Normal Lung: Normal Heart: Normal ASA Physical Status ASA physical status: 4 Emergency: None Planned Anesthetic General/MAC: Mask Planned Pain Management Parenteral pain med Pre-operative Attestations Prior to commencing anesthesia and surgery, the patient was re-evaluated, there was verification of: *The patient's identity *The results of appropriate recent lab work and preoperative vital signs *The above evaluation not changing prior to induction *Anesthetic plan, risk benefits, alternative and complications discussed with patient/family; questions answered; patient/family understands, accepts and wishes to proceed. Adult Family Home Program Manager used JOCELYN RAMIREZ MD May 05, 2018 10:09
--- NOTE | 2018-05-05 10:22 | PN ---
DATE: 05/05/2018 SUBJECTIVE: The patient is stable. No events overnight. OBJECTIVE: VITAL SIGNS: Blood pressure is 111/57, respirations 18, pulse 63, temperature 98.3. HEENT: Head is normocephalic. NECK: Supple. HEART: Regular rate. LUNGS: Show diminished breath sounds at the base. ABDOMEN: Soft, nontender to palpation without rebound or guarding. EXTREMITIES: Negative for clubbing, cyanosis, no edema. DERMATOLOGIC: No rashes. MUSCULOSKELETAL: No joint effusion. NEUROLOGIC: No change in exam. MEDICATIONS: Reviewed. LABORATORY DATA: Shows white count 17.9, hemoglobin 9.8, platelet count 140. Sodium 145, BUN 37, creatinine 5.19. ASSESSMENT AND PLAN: 1. End-stage renal disease. The patient had hemodialysis yesterday, tolerated well. Plan is for dialysis tomorrow. 2. Anemia. Monitor hemoglobin and hematocrit levels. Continue Epogen. 3. Mineral bone disorder, monitor calcium and phosphorus levels. 4. Questionable gastrointestinal bleed. The patient is pending EGD. 5. SIRS. possible sepsis, source unclear need to r/o line infection. continue work up per ID. check blood cultures from permacath. 5. Acute respiratory failure, improved. Continue to monitor. 6. Elevated troponin, possible non-STEMI type 1 versus type 2. Continue to monitor. Workup is ongoing per cardiology. 7. Encephalopathy, etiology is toxic metabolic. 8. Diabetes. Continue current insulin regimen. 9. Coronary artery disease. Continue current treatment plan. 10. Hypothyroidism. Continue Synthroid. 11. Dyslipidemia. Continue statin therapy. 12. Hypertension. Continue current blood pressure regimen. Dictated By: DANISHA PARIS DO NR/NTS Conf#: [id number] DID#: [id number] CC: ALMA DELIA EAST MD; ROSA FARAH MD; NHUNG STUBBS MD;*EndCC* MTDD
[2018-05-05] MEDS: MEROPENEM 500MG/50 ML (PMX) 50 ML IVPB SCH (10:26)
[2018-05-05] MEDS ORDERED: LIDOCAINE 4% SOLUTION 50 ML BTL ONE (11:21)
[2018-05-05] MEDS ORDERED: FENTAnyl 50 MCG/ML VIAL ONE (11:26)
[2018-05-05] MEDS ORDERED: ETOMIDATE 20 MG INJ ONE (11:26)
[2018-05-05] MEDS ORDERED: ONDANSETRON 4 MG INJ IV PRN (11:30)
[2018-05-05] MEDS ORDERED: HYDROmorphONE 1 MG/5 ML IV SYRINGE IV PRN (11:30)
--- NOTE | 2018-05-05 12:20 | PAC ---
Date/Time of Note Date/Time of Note DATE: 05/05/18 TIME: 12:20 Post-Anesthesia Notes Post-Anesthesia Note Last documented vital signs Vital Signs Date Temp Pulse Resp B/P (MAP) Pulse Ox O2 O2 Flow FiO2 Time Delivery Rate 05/05/18 150 09:34 05/05/18 18 96 21 08:38 05/05/18 98.3 111/57 07:15 (75) 05/04/18 Room Air 15:57 05/03/18 2.0 08:00 Activity: WNL Respiratory function: WNL Cardiovascular function: WNL Mental status: Baseline Pain reasonably controlled: Yes Hydration appropriate: Yes Nausea/Vomiting absent: Yes Comments BP: 115/62 HR: 60 RR: 15 T: 98 SaO2: 96% JOCELYN RAMIREZ MD May 05, 2018 12:20
--- NOTE | 2018-05-05 16:39 | PN ---
Date/Time of Note Date/Time of Note DATE: 05/05/18 TIME: 16:33 Assessment/Plan VTE Prophylaxis Risk score (from N[place])>0 risk: 4 [place] [facility] [place] contraindicated: low risk/ambulating Pharmacological prophylaxis: NA/contraindicated Pharm contraindication: bleeding Lines/Catheters IV Catheter Type (from [facility]): Peripheral IV Urinary Cath still in place: No Assessment/Plan Hospital Course Assessment and plan 1. Sepsis, severe due to hcap, stable finish antibiotics 2. HCAP stable finish antibiotics 3. Acute hypoxic respiratory failure multifactorial, #2 vs DD vs anemia assoc pul edema, stable improved, O2 as needed 4. Anemia, mod/ severe, possible acute blood loss, sp EGD: Gastritis, follow-up on pathology. No asa ~ 2 weeks 5. Abn troponin: Secondary [place] vs primary NSTEMI. no chest pain/ arrhythmias therefore continue medical management. 6. Chronic CAD/CABG, consider stress cath as indicated. Not a candidate for asa due to #4. 7. Failure to thrive, transfer to [facility] when stable needs advanced care planning reevaluated 8. Hypothyroidism 9. Type 2 diabetes 10. BPH 11. ESRD stable continue dialysis Saturday 12. Pulmonary hypertension? 13. Dialysis access right chest infection? Obtain blood cultures consider permacath. 13. Right BKA status Subjective: Events noted Objective: Fever noted 103 recently. Sinus PE No pallor JVD adenopathy Reg no murmur gallop Dimin bilaterally; rt access c/d/i Bs+ nt nd no RRG No edema rt bka status Result Diagram: 05/05/18 0546 05/05/18 0546 Results 24hrs Laboratory Tests Test 05/04/18 17:25 05/04/18 20:47 05/05/18 05:46 05/05/18 08:15 Bedside Glucose 170 254 H 136 White Blood Count 17.9 #H Red Blood Count 3.04 L Hemoglobin 9.8 L Hematocrit 30.1 L Mean Corpuscular 99.0 Volume Mean Corpuscular 32.2 Hemoglobin Mean Corpuscular 32.6 Hemoglobin Concen t Red Cell 17.2 H Distribution Width Platelet Count 140 Mean Platelet 10.2 Volume Immature 1.000 H Granulocytes % Neutrophils % 88.7 H Lymphocytes % 5.4 L Monocytes % 4.3 Eosinophils % 0.3 Basophils % 0.3 Nucleated Red 0.1 H Blood Cells % Immature 0.170 H Granulocytes # Neutrophils # 15.9 H Lymphocytes # 1.0 Monocytes # 0.8 Eosinophils # 0.1 Basophils # 0.1 Nucleated Red 0.0 Blood Cells # Sodium Level 145 H Potassium Level 4.0 Chloride Level 103 Carbon Dioxide 25 Level Anion Gap 17 H Blood Urea 37 #H Nitrogen Creatinine 5.19 H Est Glomerular 11 L Filtrat Rate mL/min Glucose Level 153 Lactic Acid Level 1.1 Calcium Level 9.0 Phosphorus Level 3.5 Magnesium Level 2.4 Total Bilirubin 0.5 Direct Bilirubin 0.00 Indirect 0.5 Bilirubin Aspartate Amino 25 Transf (AST/SGOT) Alanine 33 Aminotransferase (ALT/SGPT) Alkaline 164 H Phosphatase Creatine Kinase 29 Creatine Kinase 6.8 Index Creatinine Kinase 1.98 MB (Mass) Troponin I 1.380 *H Total Protein 7.5 Albumin 4.0 Globulin 3.50 H Albumin/Globulin 1.14 Ratio Test 05/05/18 09:10 05/05/18 13:21 Lab Scanned BLOOD TRANSFUSIO Report N Bedside Glucose 142 Exam/Review of Systems Exam Vitals Vital Signs Date Temp Pulse Resp B/P (MAP) Pulse Ox O2 O2 Flow FiO2 Time Delivery Rate 05/05/18 98.2 77 19 128/60 96 15:32 (82) 05/05/18 21 13:35 05/05/18 Room Air 13:13 05/03/18 2.0 08:00 Intake and Output 05/04/18 05/04/18 05/05/18 1515:00 23:00 07:00 IntakeIntake Total 1690 ml 250 ml OutputOutput Total 2400 ml BalanceBalance -2400 ml 1690 ml 250 ml Results Results 24hrs Laboratory Tests Test 05/04/18 17:25 05/04/18 20:47 05/05/18 05:46 05/05/18 08:15 Bedside Glucose 170 254 H 136 White Blood Count 17.9 #H Red Blood Count 3.04 L Hemoglobin 9.8 L Hematocrit 30.1 L Mean Corpuscular 99.0 Volume Mean Corpuscular 32.2 Hemoglobin Mean Corpuscular 32.6 Hemoglobin Concen t Red Cell 17.2 H Distribution Width Platelet Count 140 Mean Platelet 10.2 Volume Immature 1.000 H Granulocytes % Neutrophils % 88.7 H Lymphocytes % 5.4 L Monocytes % 4.3 Eosinophils % 0.3 Basophils % 0.3 Nucleated Red 0.1 H Blood Cells % Immature 0.170 H Granulocytes # Neutrophils # 15.9 H Lymphocytes # 1.0 Monocytes # 0.8 Eosinophils # 0.1 Basophils # 0.1 Nucleated Red 0.0 Blood Cells # Sodium Level 145 H Potassium Level 4.0 Chloride Level 103 Carbon Dioxide 25 Level Anion Gap 17 H Blood Urea 37 #H Nitrogen Creatinine 5.19 H Est Glomerular 11 L Filtrat Rate mL/min Glucose Level 153 Lactic Acid Level 1.1 Calcium Level 9.0 Phosphorus Level 3.5 Magnesium Level 2.4 Total Bilirubin 0.5 Direct Bilirubin 0.00 Indirect 0.5 Bilirubin Aspartate Amino 25 Transf (AST/SGOT) Alanine 33 Aminotransferase (ALT/SGPT) Alkaline 164 H Phosphatase Creatine Kinase 29 Creatine Kinase 6.8 Index Creatinine Kinase 1.98 MB (Mass) Troponin I 1.380 *H Total Protein 7.5 Albumin 4.0 Globulin 3.50 H Albumin/Globulin 1.14 Ratio Test 05/05/18 09:10 05/05/18 13:21 Lab Scanned BLOOD TRANSFUSIO Report N Bedside Glucose 142 Medications Medication Current Medications IV Flush (NS 3 ml) 3 ml PER PROTOCOL IV ; Start 05/01/18 at 16:00 Levalbuterol (Xopenex Neb) 0.63 mg Q6H RESP THERAPY HHN Last administered on 05/05/18 13:35; Admin Dose 0.63 MG; Start 05/01/18 at 20:00 Insulin Aspart (Novolog Insulin Pen) NOVOLOG *MILD* ALGORITHM WITH MEALS BEDTIME SC Last administered on 05/05/18 13:29; Admin Dose 1 UNIT; Start 05/01/18 at 18:00 Ascorbic Acid (Vitamin C) 500 mg DAILY PO Last administered on 05/05/18 08:27; Admin Dose 500 MG; Start 05/02/18 at 09:00 Docusate Sodium (Colace) 200 mg HS PO Last administered on 05/04/18 20:49; Admin Dose 200 MG; Start 05/01/18 at 21:00 Ferrous Sulfate (Ferrous Sulfate (Ec)) 325 mg DAILY PO Last administered on 05/05/18 08:27; Admin Dose 325 MG; Start 05/02/18 at 09:00 Levothyroxine Sodium (Synthroid) 50 mcg BEFORE BREAKFAST PO Last administered on 05/05/18 06:00; Admin Dose 50 MCG; Start 05/02/18 at 07:00 Multivitamins Therapeutic (Theragran) 1 tab DAILY PO Last administered on 05/05/18 08:27; Admin Dose 1 TAB; Start 05/02/18 at 09:00 Sevelamer Carbonate (Renvela) 0.8 gm WITH MEALS PO Last administered on 05/05/18 13:29; Admin Dose 0.8 GM; Start 05/01/18 at 18:00 Atorvastatin Calcium (Lipitor) 40 mg QHS PO Last administered on 05/04/18 20:49; Admin Dose 40 MG; Start 05/01/18 at 21:00 Vancomycin HCl (Vanco Iv Per Pharmacy) VANCOMYCIN PER PHARMACY PER PROTOCOL XX ; Start 05/02/18 at 07:30 Epoetin Gato (Epogen (Esrd)) 10,000 units MoWeFr@17 SC Last administered on 05/02/18 18:18; Admin Dose 10,000 UNITS; Start 05/02/18 at 17:00 Pantoprazole (Protonix Iv) 40 mg BID@06,18 IV Last administered on 05/05/18 06:00; Admin Dose 40 MG; Start 05/02/18 at 12:30 Lactulose (Enulose) 20 gm Q4 PO Last administered on 05/05/18 06:00; Admin Dose 20 GM; Start 05/03/18 at 13:00 Carvedilol (Coreg) 3.125 mg BID PO Last administered on 05/05/18 08:30; Admin Dose 3.125 MG; Start 05/03/18 at 15:00 Ondansetron HCl (Zofran Inj) 4 mg Q4H PRN IV NAUSEA AND/OR VOMITING Last administered on 05/04/18 14:05; Admin Dose 4 MG; Start 05/04/18 at 14:00 Acetaminophen (Tylenol Tab) 500 mg Q6H PRN PO MILD PAIN(1-3)OR ELEVATED TEMP; Start 05/04/18 at 17:00 Meropenem/Sodium Chloride 50 ml @ 100 mls/hr Q24H IVPB Last administered on 05/05/18 10:26; Admin Dose 100 MLS/HR; Start 05/05/18 at 09:00 ROSA FARAH MD May 05, 2018 16:39
[2018-05-05] MEDS: EPOETIN 10000 UNITS/1 ML INJ (ESRD) SC SCH (17:20)
[2018-05-05] MEDS: ATORVASTATIN 40 MG TAB PO SCH (19:46)
[2018-05-05] MEDS: DOCUSATE SODIUM 100 MG CAP PO SCH (19:46)
[2018-05-06] VITALS (24 sets, daily range): BP systolic 97–156; BP diastolic 42–71; PULSE 62–83; RESP 16–19
[2018-05-06] MEDS: LEVALBUTEROL (NEB) 0.63 MG/3 ML AMP HHN SCH ×3 (00:44→16:53)
[2018-05-06] MEDS: PANTOPRAZOLE 40 MG INJ IV SCH ×2 (06:08→17:03)
[2018-05-06] MEDS: LEVOTHYROXINE 50 MCG TAB PO SCH (06:08)
[2018-05-06] MEDS: INSULIN ASPART [NOVOLOG] 3 ML PEN SC SCH ×4 (08:42→20:54)
[2018-05-06] MEDS: FERROUS SULFATE (EC) 325 MG TAB PO SCH (08:55)
[2018-05-06] MEDS: MULTIVITAMINS THERAPEUTIC TAB PO SCH (08:55)
[2018-05-06] MEDS: ASCORBIC ACID 500 MG TAB PO SCH (08:55)
[2018-05-06] MEDS: SEVELAMER CARBONATE 0.8 GM PKT PO SCH ×3 (08:55→17:03)
[2018-05-06] MEDS: MEROPENEM 500MG/50 ML (PMX) 50 ML IVPB SCH (08:57)
--- NOTE | 2018-05-06 09:20 | PN ---
DATE: 05/06/2018 SUBJECTIVE: The patient remains stable. No events overnight. No fevers, chills, nausea, or vomitin g. OBJECTIVE: VITAL SIGNS: Blood pressure 131/64, respirations 18, pulse 62, temperature 98.1. HEENT: Head is normocephalic. NECK: Supple. HEART: Regular rate. LUNGS: Show diminished breath sounds at the base. ABDOMEN: Soft, nontender to palpation without rebound or guarding. EXTREMITIES: Negative for clubbing, cyanosis, no edema. DERMATOLOGIC: No rashes. MUSCULOSKELETAL: No joint effusion. NEUROLOGIC: No change in exam. MEDICATIONS: Reviewed. LABORATORY DATA: Reviewed. ASSESSMENT AND PLAN: 1. End-stage renal disease. The patient had hemodialysis scheduled for today. We will dialyze 3 ho urs 3k bath, calcium 2.5. 2. Anemia. Continue to monitor hemoglobin and hematocrit levels. Continue Epogen. 3. Mineral bone disorder, monitor calcium and phosphorus levels. 4. Questionable GI bleed. The patient is status post EGD. Results are pending. 5. Systemic inflammatory response syndrome, possible sepsis. The patient's white count has improved . Cultures have been negative to date. Continue to monitor. Follow up with infectious disease's re commendations. Line infection is being ruled out. 6. Acute respiratory failure, improved. 7. Elevated troponin. Continue medical management. 8. Encephalopathy, improved. 9. Diabetes. Continue current insulin regimen. 10. Coronary artery disease. Continue current treatment plan. 11. Hypothyroidism. Continue Synthroid. 12. Dyslipidemia. 13. Hypertension. Continue current blood pressure regimen. Dictated By: DANISHA PARIS DO NR/NTS Conf#: [id number] DID#: [id number] CC: ALMA DELIA EAST MD; ROSA FARAH MD; NHUNG STUBBS MD;*EndCC*
[2018-05-06] MEDS ORDERED: HEPARIN 1000 UNITS/ML 10 ML INJ CATHETER STA (12:17)
--- NOTE | 2018-05-06 13:59 | CONS ---
Assessment/Plan Assessment/Plan Hospital Course (Demo Recall) - fever, diaphoresis and chills associated with dialysis prior to admission and again on 05/04/2018, concerning for possible catheter related bloodstream infection. Another possibility is fever due to GIB - ESRD on HD via HD catheter on R chest wall. Pt does not remember how old the catheter is - Pyuria r/o UTI - GIB, scheduled for EGD on 05/05/2018 - DM - Hgb A1c 6.8% - CAD - LLL infiltrate vs. atelectasis on CXR upon admission but Pt does not have resp Sx - s/p type 2 AK vs. demand ischemia due to acute on chronic anemia - acute on chronic anemia - prostatic hypertrophy - hypothyroidism - s/p coronary artery bypass grafting - h/o previous AK - h/o diabetic wound of RLE - status post right BKA Recommendations: - Pending: Blood cultures from 05/05/18 (NGTD), procalcitonin from 05/04 (in process), Urine culture from 05/04 (in process), and repeat blood cx from HD catheter from today - Continue IV vancomycin (05/02/2018-) and renally dosed meropenem (05/05/2018-) Management d/w patient, DARCY Tyson, and with Dr. Aviles. Consultation Date/Type/Reason Admit Date/Time May 01, 2018 at 13:32 Initial Consult Date 05/04/18 Type of Consult Infectious Disease Requesting Provider: YOSEF MILLER NP Date/Time of Note DATE: 05/06/18 TIME: 13:57 24 HR Interval Summary Free Text/Dictation Blood cultures x2 taken from HD line during HD today per d/w nursing. Pt with no complaints. Exam/Review of Systems Exam Vitals Vital Signs Date Temp Pulse Resp B/P (MAP) Pulse Ox O2 O2 Flow FiO2 Time Delivery Rate 05/06/18 83 18 115/59 98 Room Air 13:32 (77) 05/06/18 98.2 11:26 05/06/18 21 08:54 05/03/18 2.0 08:00 Intake and Output 05/05/18 05/05/18 05/06/18 1515:00 23:00 07:00 IntakeIntake Total 550 ml 480 ml BalanceBalance 550 ml 480 ml Exam Constitutional: alert, oriented, well developed Psych: no complaints, nl mood/affect Head: normocephalic Eyes: nl conjunctiva, nl lids, nl sclera ENMT: nl external ears & nose, nl nasal mucosa & septum, mucosa pink and moist Neck: supple, non-tender Respiratory: clear to auscultation, normal air movement Cardiovascular: regular rate and rhythm, nl pulses Gastrointestinal: soft, non-tender, bowel sounds (normoactive) Genitourinary - Male: other (Right chest HD catheter site c/d/i) Extremities: other (R BKA with healed stump) Neurological: nl mental status, other (currently non-verbal; nods to simple questions appropriately; PINON) Skin: nl turgor; No rash or lesions Results Result Diagram: 05/06/18 0556 05/06/18 0556 Results 24hrs Laboratory Tests Test 05/05/18 17:13 05/05/18 19:49 05/06/18 05:56 05/06/18 08:02 Bedside Glucose 158 158 150 White Blood Count 11.7 #H Red Blood Count 3.03 L Hemoglobin 9.8 L Hematocrit 30.2 L Mean Corpuscular 99.7 Volume Mean Corpuscular 32.3 Hemoglobin Mean Corpuscular 32.5 Hemoglobin Concent Red Cell 17.2 H Distribution Width Platelet Count 151 Mean Platelet Volume 10.0 Immature 0.900 H Granulocytes % Neutrophils % 83.5 H Lymphocytes % 8.5 L Monocytes % 5.6 Eosinophils % 1.2 Basophils % 0.3 Nucleated Red Blood 0.0 Cells % Immature 0.110 H Granulocytes # Neutrophils # 9.8 H Lymphocytes # 1.0 Monocytes # 0.7 Eosinophils # 0.1 Basophils # 0.0 Nucleated Red Blood 0.0 Cells # Sodium Level 143 Potassium Level 4.2 Chloride Level 100 Carbon Dioxide Level 24 Anion Gap 19 H Blood Urea Nitrogen 49 #H Creatinine 7.09 H Est Glomerular 8 L Filtrat Rate mL/min Glucose Level 161 Calcium Level 9.0 Phosphorus Level 4.8 Magnesium Level 2.5 Total Bilirubin 0.3 Direct Bilirubin 0.00 Indirect Bilirubin 0.3 Aspartate Amino 18 Transf (AST/SGOT) Alanine 31 Aminotransferase (AL T/SGPT) Alkaline Phosphatase 149 H Total Protein 7.6 Albumin 3.9 Globulin 3.70 H Albumin/Globulin 1.05 Ratio Random Vancomycin 18.5 Level Test 05/06/18 11:09 Bedside Glucose 140 Imaging Imaging CXR 05/05/2018: Mildly increased interstitial edema suggesting cardiopulmonary congestion. Similar appearance of left basilar infiltrates. Medications Medication Current Medications IV Flush (NS 3 ml) 3 ml PER PROTOCOL IV ; Start 05/01/18 at 16:00 Insulin Aspart (Novolog Insulin Pen) NOVOLOG *MILD* ALGORITHM WITH MEALS BEDTIME SC Last administered on 05/06/18 08:42; Admin Dose 1 UNIT; Start 05/01/18 at 18:00 Ascorbic Acid (Vitamin C) 500 mg DAILY PO Last administered on 05/06/18 08:55; Admin Dose 500 MG; Start 05/02/18 at 09:00 Docusate Sodium (Colace) 200 mg HS PO Last administered on 05/04/18 20:49; Admin Dose 200 MG; Start 05/01/18 at 21:00 Ferrous Sulfate (Ferrous Sulfate (Ec)) 325 mg DAILY PO Last administered on 05/06/18 08:55; Admin Dose 325 MG; Start 05/02/18 at 09:00 Levothyroxine Sodium (Synthroid) 50 mcg BEFORE BREAKFAST PO Last administered on 05/06/18 06:08; Admin Dose 50 MCG; Start 05/02/18 at 07:00 Multivitamins Therapeutic (Theragran) 1 tab DAILY PO Last administered on 05/06/18 08:55; Admin Dose 1 TAB; Start 05/02/18 at 09:00 Sevelamer Carbonate (Renvela) 0.8 gm WITH MEALS PO Last administered on 05/06/18 11:10; Admin Dose 0.8 GM; Start 05/01/18 at 18:00 Atorvastatin Calcium (Lipitor) 40 mg QHS PO Last administered on 05/05/18 19:46; Admin Dose 40 MG; Start 05/01/18 at 21:00 Vancomycin HCl (Vanco Iv Per Pharmacy) VANCOMYCIN PER PHARMACY PER PROTOCOL XX ; Start 05/02/18 at 07:30 Epoetin Gato (Epogen (Esrd)) 10,000 units MoWeFr@17 SC Last administered on 05/05/18 17:20; Admin Dose 10,000 UNITS; Start 05/02/18 at 17:00 Pantoprazole (Protonix Iv) 40 mg BID@06,18 IV Last administered on 3/12/19at 06:08; Admin Dose 40 MG; Start 05/02/18 at 12:30 Carvedilol (Coreg) 3.125 mg BID PO Last administered on 05/06/18at 08:55; Admin Dose 3.125 MG; Start 05/03/18 at 15:00 Ondansetron HCl (Zofran Inj) 4 mg Q4H PRN IV NAUSEA AND/OR VOMITING Last administered on 05/04/18at 14:05; Admin Dose 4 MG; Start 05/04/18 at 14:00 Acetaminophen (Tylenol Tab) 500 mg Q6H PRN PO MILD PAIN(1-3)OR ELEVATED TEMP; Start 05/04/18 at 17:00 Meropenem/Sodium Chloride 50 ml @ 100 mls/hr Q24H IVPB Last administered on 05/06/18at 08:57; Admin Dose 100 MLS/HR; Start 05/05/18 at 09:00 Levalbuterol (Xopenex Neb) 0.63 mg Q8H RESP THERAPY HHN Last administered on 05/06/18at 08:54; Admin Dose 0.63 MG; Start 05/06/18 at 00:00 BRITANY PICKERING NP May 06, 2018 13:59
--- NOTE | 2018-05-06 14:36 | PN ---
Date/Time of Note Date/Time of Note DATE: 05/06/18 TIME: 14:35 Assessment/Plan VTE Prophylaxis Risk score (from Ns)>0 risk: 5 SCD applied (from Ns): Yes SCD contraindicated: low risk/ambulating Pharmacological prophylaxis: LMWH Lines/Catheters IV Catheter Type (from Nrs): permacath Urinary Cath still in place: No Assessment/Plan Hospital Course Assessment and plan 1. Sepsis, severe due to hcap, stable finish antibiotics 2. HCAP stable finish antibiotics 3. Acute hypoxic respiratory failure multifactorial, #2 vs DD vs anemia assoc pul edema, stable improved, O2 as needed 4. Anemia, mod/ severe, possible acute blood loss, sp EGD: Gastritis, follow-up on path. No asa ~ 2 weeks 5. Abn troponin: Secondary MO vs primary NSTEMI. no chest pain/ arrhythmias therefore continue medical management. 6. Chronic CAD/CABG, consider stress cath as indicated. Not a candidate for asa due to #4. 7. Failure to thrive, [facility] stable needs advanced care planning reevaluated 8. Hypothyroidism 9. Type 2 diabetes 10. BPH 11. ESRD stable continue dialysis Saturday 12. Pulmonary hypertension? 13. Dialysis access right chest infection? Obtain blood cultures consider permacath. 13. Right BKA status Subjective: 05/05 events noted 05/06: No events Objective: vss PE No pallor JVD Reg no murmur gallop Dimin bilaterally; rt access c/d/i Bs+ nt nd no RRG No edema rt bka status Result Diagram: 05/06/18 0556 05/06/18 0556 Results 24hrs Laboratory Tests Test 05/05/18 17:13 05/05/18 19:49 05/06/18 05:56 05/06/18 08:02 Bedside Glucose 158 158 150 White Blood Count 11.7 #H Red Blood Count 3.03 L Hemoglobin 9.8 L Hematocrit 30.2 L Mean Corpuscular 99.7 Volume Mean Corpuscular 32.3 Hemoglobin Mean Corpuscular 32.5 Hemoglobin Concent Red Cell 17.2 H Distribution Width Platelet Count 151 Mean Platelet Volume 10.0 Immature 0.900 H Granulocytes % Neutrophils % 83.5 H Lymphocytes % 8.5 L Monocytes % 5.6 Eosinophils % 1.2 Basophils % 0.3 Nucleated Red Blood 0.0 Cells % Immature 0.110 H Granulocytes # Neutrophils # 9.8 H Lymphocytes # 1.0 Monocytes # 0.7 Eosinophils # 0.1 Basophils # 0.0 Nucleated Red Blood 0.0 Cells # Sodium Level 143 Potassium Level 4.2 Chloride Level 100 Carbon Dioxide Level 24 Anion Gap 19 H Blood Urea Nitrogen 49 #H Creatinine 7.09 H Est Glomerular 8 L Filtrat Rate mL/min Glucose Level 161 Calcium Level 9.0 Phosphorus Level 4.8 Magnesium Level 2.5 Total Bilirubin 0.3 Direct Bilirubin 0.00 Indirect Bilirubin 0.3 Aspartate Amino 18 Transf (AST/SGOT) Alanine 31 Aminotransferase (AL T/SGPT) Alkaline Phosphatase 149 H Total Protein 7.6 Albumin 3.9 Globulin 3.70 H Albumin/Globulin 1.05 Ratio Random Vancomycin 18.5 Level Test 05/06/18 11:09 Bedside Glucose 140 Exam/Review of Systems Exam Vitals Vital Signs Date Temp Pulse Resp B/P (MAP) Pulse Ox O2 O2 Flow FiO2 Time Delivery Rate 05/06/18 83 18 115/59 98 Room Air 13:32 (77) 05/06/18 98.2 11:26 05/06/18 21 08:54 05/03/18 2.0 08:00 Intake and Output 05/05/18 05/05/18 05/06/18 1515:00 23:00 07:00 IntakeIntake Total 550 ml 480 ml BalanceBalance 550 ml 480 ml Results Results 24hrs Laboratory Tests Test 05/05/18 17:13 05/05/18 19:49 05/06/18 05:56 05/06/18 08:02 Bedside Glucose 158 158 150 White Blood Count 11.7 #H Red Blood Count 3.03 L Hemoglobin 9.8 L Hematocrit 30.2 L Mean Corpuscular 99.7 Volume Mean Corpuscular 32.3 Hemoglobin Mean Corpuscular 32.5 Hemoglobin Concent Red Cell 17.2 H Distribution Width Platelet Count 151 Mean Platelet Volume 10.0 Immature 0.900 H Granulocytes % Neutrophils % 83.5 H Lymphocytes % 8.5 L Monocytes % 5.6 Eosinophils % 1.2 Basophils % 0.3 Nucleated Red Blood 0.0 Cells % Immature 0.110 H Granulocytes # Neutrophils # 9.8 H Lymphocytes # 1.0 Monocytes # 0.7 Eosinophils # 0.1 Basophils # 0.0 Nucleated Red Blood 0.0 Cells # Sodium Level 143 Potassium Level 4.2 Chloride Level 100 Carbon Dioxide Level 24 Anion Gap 19 H Blood Urea Nitrogen 49 #H Creatinine 7.09 H Est Glomerular 8 L Filtrat Rate mL/min Glucose Level 161 Calcium Level 9.0 Phosphorus Level 4.8 Magnesium Level 2.5 Total Bilirubin 0.3 Direct Bilirubin 0.00 Indirect Bilirubin 0.3 Aspartate Amino 18 Transf (AST/SGOT) Alanine 31 Aminotransferase (AL T/SGPT) Alkaline Phosphatase 149 H Total Protein 7.6 Albumin 3.9 Globulin 3.70 H Albumin/Globulin 1.05 Ratio Random Vancomycin 18.5 Level Test 05/06/18 11:09 Bedside Glucose 140 Medications Medication Current Medications IV Flush (NS 3 ml) 3 ml PER PROTOCOL IV ; Start 05/01/18 at 16:00 Insulin Aspart (Novolog Insulin Pen) NOVOLOG *MILD* ALGORITHM WITH MEALS BEDTIME SC Last administered on 05/06/18 08:42; Admin Dose 1 UNIT; Start 05/01/18 at 18:00 Ascorbic Acid (Vitamin C) 500 mg DAILY PO Last administered on 05/06/18 08:55; Admin Dose 500 MG; Start 05/02/18 at 09:00 Docusate Sodium (Colace) 200 mg HS PO Last administered on 05/04/18 20:49; Admin Dose 200 MG; Start 05/01/18 at 21:00 Ferrous Sulfate (Ferrous Sulfate (Ec)) 325 mg DAILY PO Last administered on 05/06/18 08:55; Admin Dose 325 MG; Start 05/02/18 at 09:00 Levothyroxine Sodium (Synthroid) 50 mcg BEFORE BREAKFAST PO Last administered on 05/06/18 06:08; Admin Dose 50 MCG; Start 05/02/18 at 07:00 Multivitamins Therapeutic (Theragran) 1 tab DAILY PO Last administered on 05/06/18 08:55; Admin Dose 1 TAB; Start 05/02/18 at 09:00 Sevelamer Carbonate (Renvela) 0.8 gm WITH MEALS PO Last administered on 05/06/18 11:10; Admin Dose 0.8 GM; Start 05/01/18 at 18:00 Atorvastatin Calcium (Lipitor) 40 mg QHS PO Last administered on 05/05/18 19:46; Admin Dose 40 MG; Start 05/01/18 at 21:00 Vancomycin HCl (Vanco Iv Per Pharmacy) VANCOMYCIN PER PHARMACY PER PROTOCOL XX ; Start 05/02/18 at 07:30 Epoetin Gato (Epogen (Esrd)) 10,000 units MoWeFr@17 SC Last administered on 05/05/18at 17:20; Admin Dose 10,000 UNITS; Start 05/02/18 at 17:00 Pantoprazole (Protonix Iv) 40 mg BID@06,18 IV Last administered on 05/06/18 06:08; Admin Dose 40 MG; Start 05/02/18 at 12:30 Carvedilol (Coreg) 3.125 mg BID PO Last administered on 05/06/18 08:55; Admin Dose 3.125 MG; Start 05/03/18 at 15:00 Ondansetron HCl (Zofran Inj) 4 mg Q4H PRN IV NAUSEA AND/OR VOMITING Last administered on 05/04/18at 14:05; Admin Dose 4 MG; Start 05/04/18 at 14:00 Acetaminophen (Tylenol Tab) 500 mg Q6H PRN PO MILD PAIN(1-3)OR ELEVATED TEMP; Start 05/04/18 at 17:00 Meropenem/Sodium Chloride 50 ml @ 100 mls/hr Q24H IVPB Last administered on 05/06/18 08:57; Admin Dose 100 MLS/HR; Start 05/05/18 at 09:00 Levalbuterol (Xopenex Neb) 0.63 mg Q8H RESP THERAPY HHN Last administered on 05/06/18 08:54; Admin Dose 0.63 MG; Start 05/06/18 at 00:00 ROSA FARAH MD May 06, 2018 14:36
[2018-05-06] MEDS ORDERED: GLUCOSE GEL 15 GRAM TUBE BUCCAL PRN (15:30)
[2018-05-06] MEDS ORDERED: DEXTROSE 50% 50 ML SYRINGE IV PRN ×2 (15:30)
[2018-05-06] MEDS ORDERED: GLUCAGON 1 MG INJ IM PRN (15:30)
[2018-05-06] MEDS ORDERED: GLUCOSE GEL 15 GRAM TUBE PO PRN ×2 (15:30)
--- NOTE | 2018-05-06 15:53 | CONS ---
Assessment/Plan Assessment/Plan Hospital Course (Demo Recall) SIRS Preserved ejection fraction Myocardial infarction Acute blood loss anemia End-stage renal disease on hemodialysis Diabetes History of open heart surgery-likely CABG -Continue statin therapy -Titrate beta-blockers heart rate and blood pressure permits -No antiplatelet or anticoagulant therapy secondary to severe blood loss anemia -Fluid management via hemodialysis as per nephrology Consultation Date/Type/Reason Admit Date/Time May 01, 2018 at 13:32 Initial Consult Date Type of Consult Cardiology Requesting Provider: YOSEF MILLER NP Date/Time of Note DATE: 05/06/18 TIME: 15:52 24 HR Interval Summary Free Text/Dictation Denies chest pain, shortness of breath, palpitations Exam/Review of Systems Vital Signs Vitals Vital Signs Date Temp Pulse Resp B/P (MAP) Pulse Ox O2 O2 Flow FiO2 Time Delivery Rate 05/06/18 98.1 78 19 112/58 97 15:11 (76) 05/06/18 Room Air 13:32 05/06/18 21 08:54 05/03/18 2.0 08:00 Intake and Output 05/05/18 05/05/18 05/06/18 1515:00 23:00 07:00 IntakeIntake Total 550 ml 480 ml BalanceBalance 550 ml 480 ml Exam Constitutional: alert (Following commands, no apparent distress) Head: normocephalic Respiratory: other (Coarse breath sounds bilaterally, no wheezing) Cardiovascular: regular rate and rhythm (S1-S2 heard) Gastrointestinal: soft, non-tender, bowel sounds Extremities: other (No significant edema, amputation) Labs Result Diagram: 05/06/18 0556 05/06/18 0556 Results 24hrs Laboratory Tests Test 05/05/18 17:13 05/05/18 19:49 05/06/18 05:56 05/06/18 08:02 Bedside Glucose 158 158 150 White Blood Count 11.7 #H Red Blood Count 3.03 L Hemoglobin 9.8 L Hematocrit 30.2 L Mean Corpuscular 99.7 Volume Mean Corpuscular 32.3 Hemoglobin Mean Corpuscular 32.5 Hemoglobin Concent Red Cell 17.2 H Distribution Width Platelet Count 151 Mean Platelet Volume 10.0 Immature 0.900 H Granulocytes % Neutrophils % 83.5 H Lymphocytes % 8.5 L Monocytes % 5.6 Eosinophils % 1.2 Basophils % 0.3 Nucleated Red Blood 0.0 Cells % Immature 0.110 H Granulocytes # Neutrophils # 9.8 H Lymphocytes # 1.0 Monocytes # 0.7 Eosinophils # 0.1 Basophils # 0.0 Nucleated Red Blood 0.0 Cells # Sodium Level 143 Potassium Level 4.2 Chloride Level 100 Carbon Dioxide Level 24 Anion Gap 19 H Blood Urea Nitrogen 49 #H Creatinine 7.09 H Est Glomerular 8 L Filtrat Rate mL/min Glucose Level 161 Calcium Level 9.0 Phosphorus Level 4.8 Magnesium Level 2.5 Total Bilirubin 0.3 Direct Bilirubin 0.00 Indirect Bilirubin 0.3 Aspartate Amino 18 Transf (AST/SGOT) Alanine 31 Aminotransferase (AL T/SGPT) Alkaline Phosphatase 149 H Total Protein 7.6 Albumin 3.9 Globulin 3.70 H Albumin/Globulin 1.05 Ratio Random Vancomycin 18.5 Level Test 05/06/18 11:09 Bedside Glucose 140 Medications Medications Current Medications IV Flush (NS 3 ml) 3 ml PER PROTOCOL IV ; Start 05/01/18 at 16:00 Insulin Aspart (Novolog Insulin Pen) NOVOLOG *MILD* ALGORITHM WITH MEALS BEDTIME SC Last administered on 05/06/18 08:42; Admin Dose 1 UNIT; Start 05/01/18 at 18:00 Ascorbic Acid (Vitamin C) 500 mg DAILY PO Last administered on 05/06/18 08:55; Admin Dose 500 MG; Start 05/02/18 at 09:00 Docusate Sodium (Colace) 200 mg HS PO Last administered on 05/04/18 20:49; Admin Dose 200 MG; Start 05/01/18 at 21:00 Ferrous Sulfate (Ferrous Sulfate (Ec)) 325 mg DAILY PO Last administered on 05/06/18 08:55; Admin Dose 325 MG; Start 05/02/18 at 09:00 Levothyroxine Sodium (Synthroid) 50 mcg BEFORE BREAKFAST PO Last administered on 05/06/18 06:08; Admin Dose 50 MCG; Start 05/02/18 at 07:00 Multivitamins Therapeutic (Theragran) 1 tab DAILY PO Last administered on 05/06/18 08:55; Admin Dose 1 TAB; Start 05/02/18 at 09:00 Sevelamer Carbonate (Renvela) 0.8 gm WITH MEALS PO Last administered on 05/06/18 11:10; Admin Dose 0.8 GM; Start 05/01/18 at 18:00 Atorvastatin Calcium (Lipitor) 40 mg QHS PO Last administered on 05/05/18at 19:46; Admin Dose 40 MG; Start 05/01/18 at 21:00 Vancomycin HCl (Vanco Iv Per Pharmacy) VANCOMYCIN PER PHARMACY PER PROTOCOL XX ; Start 05/02/18 at 07:30 Epoetin Gato (Epogen (Esrd)) 10,000 units MoWeFr@17 SC Last administered on 05/05/18at 17:20; Admin Dose 10,000 UNITS; Start 05/02/18 at 17:00 Pantoprazole (Protonix Iv) 40 mg BID@06,18 IV Last administered on 05/06/18at 06:08; Admin Dose 40 MG; Start 05/02/18 at 12:30 Carvedilol (Coreg) 3.125 mg BID PO Last administered on 05/06/18at 08:55; Admin Dose 3.125 MG; Start 05/03/18 at 15:00 Ondansetron HCl (Zofran Inj) 4 mg Q4H PRN IV NAUSEA AND/OR VOMITING Last administered on 05/04/18at 14:05; Admin Dose 4 MG; Start 05/04/18 at 14:00 Acetaminophen (Tylenol Tab) 500 mg Q6H PRN PO MILD PAIN(1-3)OR ELEVATED TEMP; Start 05/04/18 at 17:00 Meropenem/Sodium Chloride 50 ml @ 100 mls/hr Q24H IVPB Last administered on 05/06/18at 08:57; Admin Dose 100 MLS/HR; Start 05/05/18 at 09:00 Levalbuterol (Xopenex Neb) 0.63 mg Q8H RESP THERAPY HHN Last administered on 05/06/18at 08:54; Admin Dose 0.63 MG; Start 05/06/18 at 00:00 Miscellaneous Information 1 ea NOTE XX ; Start 05/06/18 at 15:30 Glucose (Glutose) 15 gm Q15M PRN PO DECREASED GLUCOSE; Start 05/06/18 at 15:30 Glucose (Glutose) 22.5 gm Q15M PRN PO DECREASED GLUCOSE; Start 05/06/18 at 1 5:30 Dextrose (D50w Syringe) 25 ml Q15M PRN IV DECREASED GLUCOSE; Start 05/06/18 at 15:30 Dextrose (D50w Syringe) 50 ml Q15M PRN IV DECREASED GLUCOSE; Start 05/06/18 at 15:30 Glucagon (Glucagen) 1 mg Q15M PRN IM DECREASED GLUCOSE; Start 05/06/18 at 15:30 Glucose (Glutose) 15 gm Q15M PRN BUCCAL DECREASED GLUCOSE; Start 05/06/18 at 15:30 René Garcia DO May 06, 2018 15:53
[2018-05-06] MEDS: ATORVASTATIN 40 MG TAB PO SCH (20:48)
[2018-05-06] MEDS: DOCUSATE SODIUM 100 MG CAP PO SCH (20:48)
[2018-05-07] VITALS (10 sets, daily range): BP systolic 118–133; BP diastolic 47–60; PULSE 64–71; RESP 16–19
[2018-05-07] MEDS: LEVALBUTEROL (NEB) 0.63 MG/3 ML AMP HHN SCH ×3 (00:45→15:35)
[2018-05-07] MEDS: LEVOTHYROXINE 50 MCG TAB PO SCH (06:10)
[2018-05-07] MEDS: PANTOPRAZOLE 40 MG INJ IV SCH (06:10)
--- NOTE | 2018-05-07 07:02 | PN ---
DATE: 05/06/2018 SUBJECTIVE: The patient is quite alert. No GI complaints at this time. I saw the patient because o f severe anemia. Upper endoscopy showed evidence of some gastritis, esophagitis. Pathology from the gastric mucosa showed no evidence of H. pylori organisms. PHYSICAL EXAMINATION: GENERAL: The patient is alert, now not in distress. VITAL SIGNS: Pulse is 64, temperature is 98.1, blood pressure is 112/58. CARDIOVASCULAR: Normal heart sounds. RESPIRATORY: Normal breath sounds. ABDOMEN: Unremarkable. LABORATORY WORKUP: Hemoglobin has gone up to 9.8. Initially, it was 6.6 about 4 days ago. CLINICAL IMPRESSION: The patient has severe anemia. Upper endoscopy showed gastritis, Helicobacter pylori negative. He needs to have a lower gastrointestinal workup but currently because of the high troponin levels, putting him through the preparation for colonoscopy does not seem to be appropriate; hence, I would recommend that we will do a colonoscopy as an outpatient. Dictated By: ALMA DELIA EAST MD NC/NTS Conf#: [id number] DID#: [id number] CC: NHUNG STUBBS MD; ROSA FARAH MD;*EndCC*
[2018-05-07] MEDS: SEVELAMER CARBONATE 0.8 GM PKT PO SCH ×3 (08:04→17:09)
[2018-05-07] MEDS: ASCORBIC ACID 500 MG TAB PO SCH (08:05)
[2018-05-07] MEDS: MULTIVITAMINS THERAPEUTIC TAB PO SCH (08:05)
[2018-05-07] MEDS: FERROUS SULFATE (EC) 325 MG TAB PO SCH (08:05)
[2018-05-07] MEDS: INSULIN ASPART [NOVOLOG] 3 ML PEN SC SCH ×4 (08:11→21:00)
[2018-05-07] MEDS: MEROPENEM 500MG/50 ML (PMX) 50 ML IVPB SCH (08:25)
--- NOTE | 2018-05-07 09:08 | PN ---
DATE: 05/07/2018 SUBJECTIVE: The patient is stable. No events overnight. OBJECTIVE: VITAL SIGNS: Blood pressure is 125/58, pulse 67, respirations 19, temperature 98.2. HEENT: Head is normocephalic. NECK: Supple. HEART: Regular rate. LUNGS: Show diminished breath sounds at the base. ABDOMEN: Soft, nontender to palpation without rebound or guarding. EXTREMITIES: Negative for clubbing, cyanosis, no edema. DERMATOLOGIC: No rashes. MUSCULOSKELETAL: No joint effusion. NEUROLOGIC: No change in exam. MEDICATIONS: Reviewed. LABORATORY DATA: Shows white count 11.7, hemoglobin 9.8, platelet count is 151. ASSESSMENT AND PLAN: 1. End-stage renal disease. The patient had hemodialysis yesterday and tolerated well. Plan is for dialysis tomorrow. 2. Anemia. Monitor hemoglobin and hematocrit levels. Continue Epogen. 3. Mineral bone disorder, monitor calcium and phosphorus levels. 4. Questionable gastrointestinal bleed. The patient is status post EGD, which showed gastritis. Co ntinue current treatment plan. Follow up with GI. 5. Systemic inflammatory response syndrome, possible sepsis. Underlying source is unclear. The pat ient's cultures have been negative to date. The patient is being ruled out for line infection. Cont inue current antibiotic therapy. Follow up with infectious disease. 6. Acute respiratory failure, resolved. 7. Encephalopathy, improved. 8. Diabetes. Continue current insulin regimen. 9. Coronary artery disease. Continue medical management. 10. Hypothyroidism. Continue Synthroid. 11. Hypertension. Continue current blood pressure regimen. 12. Dyslipidemia. Dictated By: DANISHA PARIS DO NR/NTS Conf#: [id number] DID#: [id number] CC: ALMA DELIA EAST MD; ROSA FARAH MD; NHUNG STUBBS MD;*EndCC*
--- NOTE | 2018-05-07 12:47 | CONS ---
Assessment/Plan Assessment/Plan Hospital Course (Demo Recall) SIRS Preserved ejection fraction Myocardial infarction Acute blood loss anemia End-stage renal disease on hemodialysis Diabetes History of open heart surgery-likely CABG -Continue statin therapy -Titrate beta-ralph as heart rate and blood pressure permits -No antiplatelet or anticoagulant therapy secondary to severe blood loss anemia -Fluid management via hemodialysis as per nephrology Consultation Date/Type/Reason Admit Date/Time May 01, 2018 at 13:32 Initial Consult Date Type of Consult Cardiology Requesting Provider: YOSEF MILLER NP Date/Time of Note DATE: 05/07/18 TIME: 12:46 24 HR Interval Summary Free Text/Dictation Denies chest pain, palpitations or shortness of breath Exam/Review of Systems Vital Signs Vitals Vital Signs Date Temp Pulse Resp B/P (MAP) Pulse Ox O2 O2 Flow FiO2 Time Delivery Rate 05/07/18 67 12:01 05/07/18 98.7 19 125/56 96 11:36 (79) 05/07/18 21 09:15 05/07/18 2.0 09:15 05/06/18 Room Air 13:32 Intake and Output 05/06/18 05/06/18 05/07/18 1515:00 23:00 07:00 IntakeIntake Total 550 ml 550 ml OutputOutput Total 2400 ml 100 ml BalanceBalance -2400 ml 450 ml 550 ml Exam Constitutional: alert (Following commands, no apparent distress) Head: normocephalic Respiratory: other (Coarse breath sounds bilaterally, no wheezing) Cardiovascular: regular rate and rhythm (S1-S2 heard) Gastrointestinal: soft, non-tender, bowel sounds Extremities: other (Amputation) Labs Result Diagram: 05/07/1891805/07/18 0918 Results 24hrs Laboratory Tests Test 05/06/18 17:01 05/06/18 20:47 05/07/18 01:57 05/07/18 08:03 Bedside Glucose 154 227 H 193 163 Test 05/07/18 09:18 05/07/18 09:19 05/07/18 12:01 Sodium Level 142 Potassium Level 4.6 Chloride Level 99 Carbon Dioxide Level 29 Anion Gap 14 H Blood Urea Nitrogen 38 #H Creatinine 5.81 H Est Glomerular 10 L Filtrat Rate mL/min Glucose Level 184 Calcium Level 9.3 White Blood Count 10.1 Red Blood Count 3.38 L Hemoglobin 10.7 L Hematocrit 33.5 L Mean Corpuscular 99.1 Volume Mean Corpuscular 31.7 Hemoglobin Mean Corpuscular 31.9 L Hemoglobin Concent Red Cell 17.4 H Distribution Width Platelet Count 150 Mean Platelet Volume 10.4 Immature 0.900 H Granulocytes % Neutrophils % 81.0 H Lymphocytes % 8.9 L Monocytes % 8.0 Eosinophils % 1.0 Basophils % 0.2 Nucleated Red Blood 0.0 Cells % Immature 0.090 H Granulocytes # Neutrophils # 8.2 H Lymphocytes # 0.9 Monocytes # 0.8 Eosinophils # 0.1 Basophils # 0.0 Nucleated Red Blood 0.0 Cells # Bedside Glucose 236 H Medications Medications Current Medications IV Flush (NS 3 ml) 3 ml PER PROTOCOL IV ; Start 05/01/18 at 16:00 Insulin Aspart (Novolog Insulin Pen) NOVOLOG *MILD* ALGORITHM WITH MEALS BEDTIME SC Last administered on 05/07/18 12:09; Admin Dose 3 UNIT; Start 05/01 at 18:00 Ascorbic Acid (Vitamin C) 500 mg DAILY PO Last administered on 05/07/18 08:05; Admin Dose 500 MG; Start 05/02/18 at 09:00 Docusate Sodium (Colace) 200 mg HS PO Last administered on 05/04/18 20:49; Admin Dose 200 MG; Start 05/01/18 at 21:00 Ferrous Sulfate (Ferrous Sulfate (Ec)) 325 mg DAILY PO Last administered on 05/07/18 08:05; Admin Dose 325 MG; Start 05/02/18 at 09:00 Levothyroxine Sodium (Synthroid) 50 mcg BEFORE BREAKFAST PO Last administered on 05/07/18 06:10; Admin Dose 50 MCG; Start 05/02/18 at 07:00 Multivitamins Therapeutic (Theragran) 1 tab DAILY PO Last administered on 05/07/18 08:05; Admin Dose 1 TAB; Start 05/02/18 at 09:00 Sevelamer Carbonate (Renvela) 0.8 gm WITH MEALS PO Last administered on 05/07/18 12:03; Admin Dose 0.8 GM; Start 05/01/18 at 18:00 Atorvastatin Calcium (Lipitor) 40 mg QHS PO Last administered on 05/06/18 20:48; Admin Dose 40 MG; Start 05/01/18 at 21:00 Vancomycin HCl (Vanco Iv Per Pharmacy) VANCOMYCIN PER PHARMACY PER PROTOCOL XX ; Start 05/02/18 at 07:30 Epoetin Gato (Epogen (Esrd)) 10,000 units MoWeFr@17 SC Last administered on 05/05/18at 17:20; Admin Dose 10,000 UNITS; Start 05/02/18 at 17:00 Pantoprazole (Protonix Iv) 40 mg BID@06,18 IV Last administered on 05/07/18at 06:10; Admin Dose 40 MG; Start 05/02/18 at 12:30 Carvedilol (Coreg) 3.125 mg BID PO Last administered on 05/07/18at 08:06; Admin Dose 3.125 MG; Start 05/03/18 at 15:00 Ondansetron HCl (Zofran Inj) 4 mg Q4H PRN IV NAUSEA AND/OR VOMITING Last administered on 05/04/18at 14:05; Admin Dose 4 MG; Start 05/04/18 at 14:00 Acetaminophen (Tylenol Tab) 500 mg Q6H PRN PO MILD PAIN(1-3)OR ELEVATED TEMP; Start 05/04/18 at 17:00 Meropenem/Sodium Chloride 50 ml @ 100 mls/hr Q24H IVPB Last administered on 05/07/18at 08:25; Admin Dose 100 MLS/HR; Start 05/05/18 at 09:00 Levalbuterol (Xopenex Neb) 0.63 mg Q8H RESP THERAPY HHN Last administered on 05/07/18at 09:14; Admin Dose 0.63 MG; Start 05/06/18 at 00:00 Miscellaneous Information 1 ea NOTE XX ; Start 05/06/18 at 15:30 Glucose (Glutose) 15 gm Q15M PRN PO DECREASED GLUCOSE; Start 05/06/18 at 15:30 Glucose (Glutose) 22.5 gm Q15M PRN PO DECREASED GLUCOSE; Start 05/06/18 at 15:30 Dextrose (D50w Syringe) 25 ml Q15M PRN IV DECREASED GLUCOSE; Start 05/06/18 at 15:30 Dextrose (D50w Syringe) 50 ml Q15M PRN IV DECREASED GLUCOSE; Start 05/06/18 at 15:30 Glucagon (Glucagen) 1 mg Q15M PRN IM DECREASED GLUCOSE; Start 05/06/18 at 15:30 Glucose (Glutose) 15 gm Q15M PRN BUCCAL DECREASED GLUCOSE; Start 05/06/18 at 15:30 Vancomycin HCl 250 ml @ 125 mls/hr Q96H IVPB ; Start 05/07/18 at 16:00 eRné Garcia DO May 07, 2018 12:47
--- NOTE | 2018-05-07 14:41 | PN ---
Date/Time of Note Date/Time of Note DATE: 05/07/18 TIME: 14:40 Assessment/Plan VTE Prophylaxis Risk score (from [facility] [place])>0 risk: 7 SCD applied (from [facility] [place]): No SCD contraindicated: low risk/ambulating Pharmacological prophylaxis: NA/contraindicated Pharm contraindication: surgical contra Lines/Catheters IV Catheter Type (from [facility]): Permacath Urinary Cath still in place: No Assessment/Plan Hospital Course A/P 1. Sepsis, severe due to hcap, stable finish antibiotics 2. HCAP stable finish antibiotics 3. Acute hypoxic respiratory failure multifactorial- #2 vs DD vs anemia assoc pul edema, stable improved, O2 as needed 4. Anemia, mod/ severe, possible acute blood loss, sp EGD: Gastritis, follow-up on path. outpt colonoscopy. No asa ~ 2 weeks 5. Abn troponin: Secondary OR vs primary NSTEMI. no chest pain/ arrhythmias therefore continue medical management. 6. Chr CAD/CABG/ consider stress cath as indicated. Not a candidate for asa due to #4. 7. Failure to thrive, transfer to snf when stable; needs advanced care planning reevaluated 8. Hypothyroidism 9. Type 2 diabetes 10. BPH 11. ESRD stable continue dialysis Saturday 12. Pulmonary hypertension? 13. Dialysis access right chest infection? Obtain blood cultures consider permacath. 13. Right BKA status Subjective: 05/05 events noted 05/06: No events 05/07 no distress. Tolerating diet. No active bleed. No fever. Objective: vss PE No pallor/ JVD Reg no m/r/g Dimin bilaterally; rt access c/d/i Bs+ nt nd no RRG No edema rt bka status Result Diagram: 05/07/1891805/07/18917 Results 24hrs Laboratory Tests Test 05/06/18 17:01 05/06/18 20:47 05/07/18 01:57 05/07/18 08:03 Bedside Glucose 154 227 H 193 163 Test 05/07/18 09:18 05/07/18 09:19 05/07/18 12:01 Sodium Level 142 Potassium Level 4.6 Chloride Level 99 Carbon Dioxide Level 29 Anion Gap 14 H Blood Urea Nitrogen 38 #H Creatinine 5.81 H Est Glomerular 10 L Filtrat Rate mL/min Glucose Level 184 Calcium Level 9.3 White Blood Count 10.1 Red Blood Count 3.38 L Hemoglobin 10.7 L Hematocrit 33.5 L Mean Corpuscular 99.1 Volume Mean Corpuscular 31.7 Hemoglobin Mean Corpuscular 31.9 L Hemoglobin Concent Red Cell 17.4 H Distribution Width Platelet Count 150 Mean Platelet Volume 10.4 Immature 0.900 H Granulocytes % Neutrophils % 81.0 H Lymphocytes % 8.9 L Monocytes % 8.0 Eosinophils % 1.0 Basophils % 0.2 Nucleated Red Blood 0.0 Cells % Immature 0.090 H Granulocytes # Neutrophils # 8.2 H Lymphocytes # 0.9 Monocytes # 0.8 Eosinophils # 0.1 Basophils # 0.0 Nucleated Red Blood 0.0 Cells # Bedside Glucose 236 H Exam/Review of Systems Exam Vitals Vital Signs Date Temp Pulse Resp B/P (MAP) Pulse Ox O2 O2 Flow FiO2 Time Delivery Rate 05/07/18 67 12:01 05/07/18 98.7 19 125/56 96 11:36 (79) 05/07/18 21 09:15 05/07/18 2.0 09:15 05/06/18 Room Air 13:32 Intake and Output 05/06/18 05/06/18 05/07/18 1515:00 23:00 07:00 IntakeIntake Total 550 ml 550 ml OutputOutput Total 2400 ml 100 ml BalanceBalance -2400 ml 450 ml 550 ml Results Results 24hrs Laboratory Tests Test 05/06/18 17:01 05/06/18 20:47 05/07/18 01:57 05/07/18 08:03 Bedside Glucose 154 227 H 193 163 Test 05/07/18 09:18 05/07/18 09:19 05/07/18 12:01 Sodium Level 142 Potassium Level 4.6 Chloride Level 99 Carbon Dioxide Level 29 Anion Gap 14 H Blood Urea Nitrogen 38 #H Creatinine 5.81 H Est Glomerular 10 L Filtrat Rate mL/min Glucose Level 184 Calcium Level 9.3 White Blood Count 10.1 Red Blood Count 3.38 L Hemoglobin 10.7 L Hematocrit 33.5 L Mean Corpuscular 99.1 Volume Mean Corpuscular 31.7 Hemoglobin Mean Corpuscular 31.9 L Hemoglobin Concent Red Cell 17.4 H Distribution Width Platelet Count 150 Mean Platelet Volume 10.4 Immature 0.900 H Granulocytes % Neutrophils % 81.0 H Lymphocytes % 8.9 L Monocytes % 8.0 Eosinophils % 1.0 Basophils % 0.2 Nucleated Red Blood 0.0 Cells % Immature 0.090 H Granulocytes # Neutrophils # 8.2 H Lymphocytes # 0.9 Monocytes # 0.8 Eosinophils # 0.1 Basophils # 0.0 Nucleated Red Blood 0.0 Cells # Bedside Glucose 236 H Medications Medication Current Medications IV Flush (NS 3 ml) 3 ml PER PROTOCOL IV ; Start 05/01/18 at 16:00 Insulin Aspart (Novolog Insulin Pen) NOVOLOG *MILD* ALGORITHM WITH MEALS BE DTIME SC Last administered on 05/07/18 12:09; Admin Dose 3 UNIT; Start 05/01/18 at 18:00 Ascorbic Acid (Vitamin C) 500 mg DAILY PO Last administered on 05/07/18 08:05; Admin Dose 500 MG; Start 05/02/18 at 09:00 Docusate Sodium (Colace) 200 mg HS PO Last administered on 05/04/18 20:49; Admin Dose 200 MG; Start 05/01/18 at 21:00 Ferrous Sulfate (Ferrous Sulfate (Ec)) 325 mg DAILY PO Last administered on 05/07/18 08:05; Admin Dose 325 MG; Start 05/02/18 at 09:00 Levothyroxine Sodium (Synthroid) 50 mcg BEFORE BREAKFAST PO Last administered on 05/07/18 06:10; Admin Dose 50 MCG; Start 05/02/18 at 07:00 Multivitamins Therapeutic (Theragran) 1 tab DAILY PO Last administered on 05/07/18 08:05; Admin Dose 1 TAB; Start 05/02/18 at 09:00 Sevelamer Carbonate (Renvela) 0.8 gm WITH MEALS PO Last administered on 05/07/18 12:03; Admin Dose 0.8 GM; Start 05/01/18 at 18:00 Atorvastatin Calcium (Lipitor) 40 mg QHS PO Last administered on 05/06/18 20:48; Admin Dose 40 MG; Start 05/01/18 at 21:00 Vancomycin HCl (Vanco Iv Per Pharmacy) VANCOMYCIN PER PHARMACY PER PROTOCOL XX ; Start 05/02/18 at 07:30 Epoetin Gato (Epogen (Esrd)) 10,000 units MoWeFr@17 SC Last administered on 3/11/19at 17:20; Admin Dose 10,000 UNITS; Start 05/02/18 at 17:00 Pantoprazole (Protonix Iv) 40 mg BID@06,18 IV Last administered on 05/07/18at 06:10; Admin Dose 40 MG; Start 05/02/18 at 12:30 Carvedilol (Coreg) 3.125 mg BID PO Last administered on 05/07/18at 08:06; Admin Dose 3.125 MG; Start 05/03/18 at 15:00 Ondansetron HCl (Zofran Inj) 4 mg Q4H PRN IV NAUSEA AND/OR VOMITING Last administered on 05/04/18at 14:05; Admin Dose 4 MG; Start 05/04/18 at 14:00 Acetaminophen (Tylenol Tab) 500 mg Q6H PRN PO MILD PAIN(1-3)OR ELEVATED TEMP; Start 05/04/18 at 17:00 Meropenem/Sodium Chloride 50 ml @ 100 mls/hr Q24H IVPB Last administered on 05/07/18at 08:25; Admin Dose 100 MLS/HR; Start 05/05/18 at 09:00 Levalbuterol (Xopenex Neb) 0.63 mg Q8H RESP THERAPY HHN Last administered on 05/07/18at 09:14; Admin Dose 0.63 MG; Start 05/06/18 at 00:00 Miscellaneous Information 1 ea NOTE XX ; Start 05/06/18 at 15:30 Glucose (Glutose) 15 gm Q15M PRN PO DECREASED GLUCOSE; Start 05/06/18 at 15:30 Glucose (Glutose) 22.5 gm Q15M PRN PO DECREASED GLUCOSE; Start 05/06/18 at 15:30 Dextrose (D50w Syringe) 25 ml Q15M PRN IV DECREASED GLUCOSE; Start 05/06/18 at 15:30 Dextrose (D50w Syringe) 50 ml Q15M PRN IV DECREASED GLUCOSE; Start 05/06/18 at 15:30 Glucagon (Glucagen) 1 mg Q15M PRN IM DECREASED GLUCOSE; Start 05/06/18 at 15:30 Glucose (Glutose) 15 gm Q15M PRN BUCCAL DECREASED GLUCOSE; Start 05/06/18 at 15:30 Vancomycin HCl 250 ml @ 125 mls/hr Q96H IVPB ; Start 05/07/18 at 16:00 ROSA FARAH MD May 07, 2018 14:41
[2018-05-07] MEDS ORDERED: VANCOMYCIN 1 GM 250 ML IVPB SCH (16:00)
--- NOTE | 2018-05-07 16:16 | CONS ---
Assessment/Plan Assessment/Plan Hospital Course (Demo Recall) - fever, diaphoresis and chills associated with dialysis prior to admission and again on 05/04/2018, concerning for possible catheter related bloodstream infection. Another possibility is fever due to GIB - ESRD on HD via HD catheter on R chest wall. Pt does not remember how old the catheter is - Pyuria r/o UTI - GIB, scheduled for EGD on 05/05/2018 - DM - Hgb A1c 6.8% - CAD - LLL infiltrate vs. atelectasis on CXR upon admission but Pt does not have resp Sx - s/p type 2 WA vs. demand ischemia due to acute on chronic anemia - acute on chronic anemia - prostatic hypertrophy - hypothyroidism - s/p coronary artery bypass grafting - h/o previous WA - h/o diabetic wound of RLE - status post right BKA Recommendations: - Pending: Blood cultures from 05/05/18 (NGTD), procalcitonin from 05/04 (in process), Urine culture from 05/04 (in process), and repeat blood cx from HD c atheter 05/06/18 (NGTD) - Continue IV vancomycin (05/02/2018-) and renally dosed meropenem (05/05/2018-) Management d/w patient and with Dr. Aviles Thank you Consultation Date/Type/Reason Admit Date/Time May 01, 2018 at 13:32 Initial Consult Date 05/04/18 Type of Consult ID Requesting Provider: YOSEF MILLER NP Date/Time of Note DATE: 05/07/18 TIME: 16:15 24 HR Interval Summary Free Text/Dictation The patient denied all ROS. States his last HD was yesterday and he didn't feel fevers. Next HD tomorrow. The patient has remained afebrile. Blood cultures sent yesterday with HD. No acute issues noted by nursing. Exam/Review of Systems Exam Vitals Vital Signs Date Temp Pulse Resp B/P (MAP) Pulse Ox O2 O2 Flow FiO2 Time Delivery Rate 05/07/18 98.2 66 19 123/47 96 15:55 (72) 05/07/18 21 15:36 05/07/18 2.0 09:15 05/06/18 Room Air 13:32 Intake and Output 05/06/18 05/06/18 05/07/18 1515:00 23:00 07:00 IntakeIntake Total 550 ml 550 ml OutputOutput Total 2400 ml 100 ml BalanceBalance -2400 ml 450 ml 550 ml Allergies Coded Allergies No Known Allergy (Unverified05/01/18) Exam Constitutional: alert, oriented, well developed Psych: no complaints, nl mood/affect Head: normocephalic Eyes: nl conjunctiva, nl lids, nl sclera ENMT: nl external ears & nose, nl nasal mucosa & septum, mucosa pink and moist Neck: supple, non-tender Respiratory: clear to auscultation, normal air movement Cardiovascular: regular rate and rhythm, nl pulses Gastrointestinal: soft, non-tender, bowel sounds (normoactive ) Genitourinary - Male: other (Right chest HD catheter - site is c/d/i without erythema, drainage, or tenderness around the catheter site. ) Extremities: other (R healed BKA) Neurological: MANAGER PERSONAL II-XII intact, nl mental status, nl speech, nl strength Skin: nl turgor; other (bruising left hip/flank noted) No rash or lesions Results Result Diagram: 05/07/1891805/07/18917 Results 24hrs Laboratory Tests Test 05/06/18 17:01 05/06/18 20:47 05/07/18 01:57 05/07/18 08:03 Bedside Glucose 154 227 H 193 163 Test 05/07/18 09:18 05/07/18 09:19 05/07/18 12:01 Sodium Level 142 Potassium Level 4.6 Chloride Level 99 Carbon Dioxide Level 29 Anion Gap 14 H Blood Urea Nitrogen 38 #H Creatinine 5.81 H Est Glomerular 10 L Filtrat Rate mL/min Glucose Level 184 Calcium Level 9.3 White Blood Count 10.1 Red Blood Count 3.38 L Hemoglobin 10.7 L Hematocrit 33.5 L Mean Corpuscular 99.1 Volume Mean Corpuscular 31.7 Hemoglobin Mean Corpuscular 31.9 L Hemoglobin Concent Red Cell 17.4 H Distribution Width Platelet Count 150 Mean Platelet Volume 10.4 Immature 0.900 H Granulocytes % Neutrophils % 81.0 H Lymphocytes % 8.9 L Monocytes % 8.0 Eosinophils % 1.0 Basophils % 0.2 Nucleated Red Blood 0.0 Cells % Immature 0.090 H Granulocytes # Neutrophils # 8.2 H Lymphocytes # 0.9 Monocytes # 0.8 Eosinophils # 0.1 Basophils # 0.0 Nucleated Red Blood 0.0 Cells # Bedside Glucose 236 H Imaging Imaging CXR 05/05/18 IMPRESSION: Mildly increased interstitial edema suggesting cardiopulmonary congestion. Similar appearance of left basilar infiltrates. Medications Medication Current Medications IV Flush (NS 3 ml) 3 ml PER PROTOCOL IV ; Start 05/01/18 at 16:00 Insulin Aspart (Novolog Insulin Pen) NOVOLOG *MILD* ALGORITHM WITH MEALS BEDTIME SC Last administered on 05/07/18 12:09; Admin Dose 3 UNIT; Start 05/01/18 at 18:00 Ascorbic Acid (Vitamin C) 500 mg DAILY PO Last administered on 05/07/18 08:05; Admin Dose 500 MG; Start 05/02/18 at 09:00 Docusate Sodium (Colace) 200 mg HS PO Last administered on 05/04/18 20:49; Admin Dose 200 MG; Start 05/01/18 at 21:00 Ferrous Sulfate (Ferrous Sulfate (Ec)) 325 mg DAILY PO Last administered on 04/25 08:05; Admin Dose 325 MG; Start 05/02/18 at 09:00 Levothyroxine Sodium (Synthroid) 50 mcg BEFORE BREAKFAST PO Last administered on 05/07/18 06:10; Admin Dose 50 MCG; Start 05/02/18 at 07:00 Multivitamins Therapeutic (Theragran) 1 tab DAILY PO Last administered on 05/07/18 08:05; Admin Dose 1 TAB; Start 05/02/18 at 09:00 Sevelamer Carbonate (Renvela) 0.8 gm WITH MEALS PO Last administered on 05/07/18 12:03; Admin Dose 0.8 GM; Start 05/01/18 at 18:00 Vancomycin HCl (Vanco Iv Per Pharmacy) VANCOMYCIN PER PHARMACY PER PROTOCOL XX ; Start 05/02/18 at 07:30 Epoetin Gato (Epogen (Esrd)) 10,000 units MoWeFr@17 SC Last administered on 05/05/18 17:20; Admin Dose 10,000 UNITS; Start 05/02/18 at 17:00 Pantoprazole (Protonix Iv) 40 mg BID@06,18 IV Last administered on 05/07/18 06:10; Admin Dose 40 MG; Start 05/02/18 at 12:30 Carvedilol (Coreg) 3.125 mg BID PO Last administered on 05/07/18at 08:06; Admin Dose 3.125 MG; Start 05/03/18 at 15:00 Ondansetron HCl (Zofran Inj) 4 mg Q4H PRN IV NAUSEA AND/OR VOMITING Last administered on 05/04/18at 14:05; Admin Dose 4 MG; Start 05/04/18 at 14:00 Acetaminophen (Tylenol Tab) 500 mg Q6H PRN PO MILD PAIN(1-3)OR ELEVATED TEMP; Start 05/04/18 at 17:00 Meropenem/Sodium Chloride 50 ml @ 100 mls/hr Q24H IVPB Last administered on 05/07/18at 08:25; Admin Dose 100 MLS/HR; Start 05/05/18 at 09:00 Levalbuterol (Xopenex Neb) 0.63 mg Q8H RESP THERAPY HHN Last administered on 05/07/18at 15:35; Admin Dose 0.63 MG; Start 05/06/18 at 00:00 Miscellaneous Information 1 ea NOTE XX ; Start 05/06/18 at 15:30 Glucose (Glutose) 15 gm Q15M PRN PO DECREASED GLUCOSE; Start 05/06/18 at 15:30 Glucose (Glutose) 22.5 gm Q15M PRN PO DECREASED GLUCOSE; Start 05/06/18 at 15:30 Dextrose (D50w Syringe) 25 ml Q15M PRN IV DECREASED GLUCOSE; Start 05/06/18 at 15:30 Dextrose (D50w Syringe) 50 ml Q15M PRN IV DECREASED GLUCOSE; Start 05/06/18 at 15:30 Glucagon (Glucagen) 1 mg Q15M PRN IM DECREASED GLUCOSE; Start 05/06/18 at 15:30 Glucose (Glutose) 15 gm Q15M PRN BUCCAL DECREASED GLUCOSE; Start 05/06/18 at 15:30 Vancomycin HCl 250 ml @ 125 mls/hr Q96H IVPB Last administered on 05/07/18at 15:52; Admin Dose 125 MLS/HR; Start 05/07/18 at 16:00 Lactobacillus Acidophilus/ Rhamnosus (Culturelle) 1 cap BID PO ; Start 05/07/18 at 21:00 Atorvastatin Calcium (Lipitor) 20 mg QHS PO ; Start 05/07/18 at 21:00 Miscellaneous Information 1 tab DAILY PO ; Start 05/08/18 at 09:00; Status DIAMANTE CARPENTER NP May 07, 2018 16:16
[2018-05-07] MEDS: EPOETIN 10000 UNITS/1 ML INJ (ESRD) SC SCH (17:10)
[2018-05-07] MEDS: PANTOPRAZOLE (EC) 40 MG TAB PO SCH (17:17)
[2018-05-07] MEDS: LACTOBACILLUS RHAMNOSUS CAP PO SCH (21:26)
[2018-05-07] MEDS: DOCUSATE SODIUM 100 MG CAP PO SCH (21:26)
[2018-05-07] MEDS: ATORVASTATIN 20 MG TAB PO SCH (21:26)
[2018-05-08] VITALS (23 sets, daily range): BP systolic 116–170; BP diastolic 35–95; PULSE 64–81; RESP 16–22
[2018-05-08] MEDS: LEVALBUTEROL (NEB) 0.63 MG/3 ML AMP HHN SCH ×2 (00:25→08:48)
[2018-05-08] MEDS: PANTOPRAZOLE (EC) 40 MG TAB PO SCH ×2 (06:00→18:02)
[2018-05-08] MEDS: LEVOTHYROXINE 50 MCG TAB PO SCH ×2 (06:34→08:10)
[2018-05-08] MEDS: ASCORBIC ACID 500 MG TAB PO SCH (08:10)
[2018-05-08] MEDS: LACTOBACILLUS RHAMNOSUS CAP PO SCH ×2 (08:10→21:05)
[2018-05-08] MEDS: MULTIVITAMINS THERAPEUTIC TAB PO SCH (08:10)
[2018-05-08] MEDS: MEROPENEM 500MG/50 ML (PMX) 50 ML IVPB SCH (08:11)
[2018-05-08] MEDS: FERROUS SULFATE (EC) 325 MG TAB PO SCH (08:11)
[2018-05-08] MEDS: SEVELAMER CARBONATE 0.8 GM PKT PO SCH ×3 (08:11→17:31)
[2018-05-08] MEDS: INSULIN ASPART [NOVOLOG] 3 ML PEN SC SCH ×4 (08:31→21:00)
--- NOTE | 2018-05-08 08:32 | PN ---
DATE: 05/08/2018 SUBJECTIVE: The patient is stable, no events overnight. OBJECTIVE: VITAL SIGNS: Blood pressure is 120/68, respirations 18, pulse 65, temperature 98.5. HEENT: Head is normocephalic. NECK: Supple. HEART: Regular rate. LUNGS: Show diminished breath sounds at the base. ABDOMEN: Soft, nontender to palpation without rebound or guarding. EXTREMITIES: Negative for clubbing, cyanosis, no edema. DERMATOLOGIC: No rashes. MUSCULOSKELETAL: No joint effusion. NEUROLOGIC: No change in exam. MEDICATIONS: The patient's medications have been reviewed. LABORATORY DATA: Shows white count 7.2, hemoglobin 10.5, platelet count 176, BUN 50, creatinine 7.19 . ASSESSMENT AND PLAN: 1. End-stage renal disease. Plan is for hemodialysis today. We will dialyze for 3 hours 3k bath, c alcium 2.5. 2. Anemia. Monitor hemoglobin and hematocrit levels. Continue Epogen. 3. Mineral bone disorder, monitor calcium and phosphorus levels. 4. Gastritis. The patient is status post EGD. Continue proton pump inhibitor. 5. Serous, sepsis secondary to healthcare-associated pneumonia. Continue current antibiotic regimen . Repeat cultures have been negative to date. We will monitor closely. Follow up with Infectious D isease. 6. Acute respiratory failure, resolved. 7. Encephalopathy, improved. 8. Diabetes. Continue current insulin regimen. 9. Coronary artery disease. Continue medical management. 10. Hypothyroidism. Continue Synthroid. 11. Hypertension. Continue current blood pressure regimen. 12. Dyslipidemia. Dictated By: DANISHA PARIS DO NR/NTS Conf#: [id number] DID#: [id number] CC: ROSA FARAH MD; ALMA DELIA EAST MD; NHUNG STUBBS MD;*EndCC*
--- NOTE | 2018-05-08 11:58 | PN ---
Date/Time of Note Date/Time of Note DATE: 05/08/18 TIME: 11:53 Assessment/Plan VTE Prophylaxis Risk score (from Ns)>0 risk: 10 SCD applied (from Ns): No SCD contraindicated: low risk/ambulating Pharmacological prophylaxis: LMWH Lines/Catheters IV Catheter Type (from [facility]): Permacath Urinary Cath still in place: No Assessment/Plan Hospital Course A/P 1. Sepsis, severe due to hcap, stable finish antibiotics 2. HCAP stable finish antibiotics 3. Acute hypoxic respiratory failure multifactorial- #2 vs DD vs anemia assoc pul edema, stable improved, O2 as needed 4. Anemia, mod/ severe, possible acute blood loss, sp EGD: Gastritis, follow-up on path. outpt colonoscopy. No asa ~ 2 weeks 5. Abn troponin: Secondary TX vs primary NSTEMI. no chest pain/ arrhythmias therefore continue medical management. 6. Chr CAD/CABG/ consider stress cath as indicated. Not a candidate for asa due to #4. 7. Failure to thrive, transfer to snf when stable; needs advanced care planning reevaluated 8. Hypothyroidism 9. Type 2 diabetes 10. BPH 11. ESRD stable continue dialysis Saturday 12. Pulmonary hypertension? 13. Dialysis access right chest infection? Obtained blood cultures consider permacath. 14. Right BKA status 15. Nonadherence patient has some frustrating behavior. S: 05/05: events noted 05/06: No events 05/07 no distress. Tolerating diet. No active bleed. No fever. 05/08: Refused insulin sliding coverage, through cholecystitis for early patient for dialysis today. No fever dyspnea or diarrhea. O: vss PE No pallor/ JVD Reg no m/r/g Dimin bilaterally; rt access c/d/i Bs+ nt nd no RRG No edema rt bka status Result Diagram: 05/08/18 0536 05/08/18 0536 Results 24hrs Laboratory Tests Test 05/07/18 12:01 05/07/18 17:08 05/07/18 21:26 05/08/18 05:36 Bedside Glucose 236 H 150 192 White Blood Count 7.2 # Red Blood Count 3.33 L Hemoglobin 10.5 L Hematocrit 32.3 L Mean Corpuscular 97.0 Volume Mean Corpuscular 31.5 Hemoglobin Mean Corpuscular 32.5 Hemoglobin Concent Red Cell 17.2 H Distribution Width Platelet Count 176 Mean Platelet Volume 10.3 Immature 1.100 H Granulocytes % Neutrophils % 67.7 Lymphocytes % 18.1 Monocytes % 11.0 Eosinophils % 1.8 Basophils % 0.3 Nucleated Red Blood 0.0 Cells % Immature 0.080 H Granulocytes # Neutrophils # 4.9 Lymphocytes # 1.3 Monocytes # 0.8 Eosinophils # 0.1 Basophils # 0.0 Nucleated Red Blood 0.0 Cells # Sodium Level 141 Potassium Level 3.9 Chloride Level 101 Carbon Dioxide Level 23 Anion Gap 17 H Blood Urea Nitrogen 50 H Creatinine 7.19 H Est Glomerular 8 L Filtrat Rate mL/min Glucose Level 164 Calcium Level 8.7 Test 05/08/18 07:18 Bedside Glucose 162 Exam/Review of Systems Exam Vitals Vital Signs Date Temp Pulse Resp B/P (MAP) Pulse Ox O2 O2 Flow FiO2 Time Delivery Rate 05/08/18 98.0 68 22 128/56 96 Room Air 11:44 (80) 05/08/18 21 08:51 05/07/18 2.0 09:15 Intake and Output 05/07/18 05/07/18 05/08/18 1515:00 23:00 07:00 IntakeIntake Total 50 ml 710 ml OutputOutput Total 100 ml BalanceBalance 50 ml 610 ml Results Results 24hrs Laboratory Tests Test 05/07/18 12:01 05/07/18 17:08 05/07/18 21:26 05/08/18 05:36 Bedside Glucose 236 H 150 192 White Blood Count 7.2 # Red Blood Count 3.33 L Hemoglobin 10.5 L Hematocrit 32.3 L Mean Corpuscular 97.0 Volume Mean Corpuscular 31.5 Hemoglobin Mean Corpuscular 32.5 Hemoglobin Concent Red Cell 17.2 H Distribution Width Platelet Count 176 Mean Platelet Volume 10.3 Immature 1.100 H Granulocytes % Neutrophils % 67.7 Lymphocytes % 18.1 Monocytes % 11.0 Eosinophils % 1.8 Basophils % 0.3 Nucleated Red Blood 0.0 Cells % Immature 0.080 H Granulocytes # Neutrophils # 4.9 Lymphocytes # 1.3 Monocytes # 0.8 Eosinophils # 0.1 Basophils # 0.0 Nucleated Red Blood 0.0 Cells # Sodium Level 141 Potassium Level 3.9 Chloride Level 101 Carbon Dioxide Level 23 Anion Gap 17 H Blood Urea Nitrogen 50 H Creatinine 7.19 H Est Glomerular 8 L Filtrat Rate mL/min Glucose Level 164 Calcium Level 8.7 Test 05/08/18 07:18 Bedside Glucose 162 Medications Medication Current Medications IV Flush (NS 3 ml) 3 ml PER PROTOCOL IV ; Start 05/01/18 at 16:00 Insulin Aspart (Novolog Insulin Pen) NOVOLOG *MILD* ALGORITHM WITH MEALS BEDTIME SC Last administered on 05/08/18 08:31; Admin Dose 1 UNIT; Start 05/01/18 at 18:00 Ascorbic Acid (Vitamin C) 500 mg DAILY PO Last administered on 05/08/18 08:10; Admin Dose 500 MG; Start 05/02/18 at 09:00 Docusate Sodium (Colace) 200 mg HS PO Last administered on 05/07/18 21:26; Admin Dose 200 MG; Start 05/01/18 at 21:00 Ferrous Sulfate (Ferrous Sulfate (Ec)) 325 mg DAILY PO Last administered on 05/08/18 08:11; Admin Dose 325 MG; Start 05/02/18 at 09:00 Levothyroxine Sodium (Synthroid) 50 mcg BEFORE BREAKFAST PO Last administered on 05/08/18 08:10; Admin Dose 50 MCG; Start 05/02/18 at 07:00 Multivitamins Therapeutic (Theragran) 1 tab DAILY PO Last administered on 05/08/18 08:10; Admin Dose 1 TAB; Start 05/02/18 at 09:00 Sevelamer Carbonate (Renvela) 0.8 gm WITH MEALS PO Last administered on 05/08/18 08:11; Admin Dose 0.8 GM; Start 05/01/18 at 18:00 Vancomycin HCl (Vanco Iv Per Pharmacy) VANCOMYCIN PER PHARMACY PER PROTOCOL XX ; Start 05/02/18 at 07:30 Epoetin Gato (Epogen (Esrd)) 10,000 units MoWeFr@17 SC Last administered on 05/07/18 17:10; Admin Dose 10,000 UNITS; Start 05/02/18 at 17:00 Carvedilol (Coreg) 3.125 mg BID PO Last administered on 05/07/18 21:27; Admin Dose 3.125 MG; Start 05/03/18 at 15:00 Ondansetron HCl (Zofran Inj) 4 mg Q4H PRN IV NAUSEA AND/OR VOMITING Last administered on 05/04/18at 14:05; Admin Dose 4 MG; Start 05/04/18 at 14:00 Acetaminophen (Tylenol Tab) 500 mg Q6H PRN PO MILD PAIN(1-3)OR ELEVATED TEMP; Start 05/04/18 at 17:00 Meropenem/Sodium Chloride 50 ml @ 100 mls/hr Q24H IVPB Last administered on 05/08/18at 08:11; Admin Dose 100 MLS/HR; Start 05/05/18 at 09:00 Levalbuterol (Xopenex Neb) 0.63 mg Q8H RESP THERAPY HHN Last administered on 05/08/18at 08:48; Admin Dose 0.63 MG; Start 05/06/18 at 00:00 Miscellaneous Information 1 ea NOTE XX ; Start 05/06/18 at 15:30 Glucose (Glutose) 15 gm Q15M PRN PO DECREASED GLUCOSE; Start 05/06/18 at 15:30 Glucose (Glutose) 22.5 gm Q15M PRN PO DECREASED GLUCOSE; Start 05/06/18 at 15:30 Dextrose (D50w Syringe) 25 ml Q15M PRN IV DECREASED GLUCOSE; Start 05/06/18 at 15:30 Dextrose (D50w Syringe) 50 ml Q15M PRN IV DECREASED GLUCOSE; Start 05/06/18 at 15:30 Glucagon (Glucagen) 1 mg Q15M PRN IM DECREASED GLUCOSE; Start 05/06/18 at 15:30 Glucose (Glutose) 15 gm Q15M PRN BUCCAL DECREASED GLUCOSE; Start 05/06/18 at 15:30 Vancomycin HCl 250 ml @ 125 mls/hr Q96H IVPB Last administered on 05/07/18at 15:52; Admin Dose 125 MLS/HR; Start 05/07/18 at 16:00 Lactobacillus Acidophilus/ Rhamnosus (Culturelle) 1 cap BID PO Last administered on 05/08/18at 08:10; Admin Dose 1 CAP; Start 05/07/18 at 21:00 Atorvastatin Calcium (Lipitor) 20 mg QHS PO Last administered on 05/07/18at 21:26; Admin Dose 20 MG; Start 05/07/18 at 21:00 Miscellaneous Information 1 tab DAILY PO ; Start 05/08/18 at 09:00; Status UNV Pantoprazole (Protonix Tab) 40 mg BID@0600,1800 PO ; Start 05/07/18 at 18:00 ROSA FARAH MD May 08, 2018 11:58
--- NOTE | 2018-05-08 15:54 | CONS ---
Assessment/Plan Assessment/Plan Hospital Course (Demo Recall) SIRS/sepsis Preserved ejection fraction Myocardial infarction Acute blood loss anemia End-stage renal disease on hemodialysis Diabetes History of open heart surgery-likely CABG -Continue statin therapy -Titrate beta-ralph as heart rate and blood pressure permits -No antiplatelet or anticoagulant therapy secondary to severe blood loss anemia -Fluid management via hemodialysis as per nephrology Consultation Date/Type/Reason Admit Date/Time May 01, 2018 at 13:32 Initial Consult Date Type of Consult Cardiology Requesting Provider: YOSEF MILLER NP Date/Time of Note DATE: 05/08/18 TIME: 15:52 24 HR Interval Summary Free Text/Dictation Denies shortness of breath, chest pain or palpitations Exam/Review of Systems Vital Signs Vitals Vital Signs Date Temp Pulse Resp B/P (MAP) Pulse Ox O2 O2 Flow FiO2 Time Delivery Rate 05/08/18 67 12:16 05/08/18 98.0 22 128/56 96 Room Air 11:44 (80) 05/08/18 21 08:51 05/07/18 2.0 09:15 Intake and Output 05/07/18 05/07/18 05/08/18 1515:00 23:00 07:00 IntakeIntake Total 50 ml 710 ml OutputOutput Total 100 ml BalanceBalance 50 ml 610 ml Exam Constitutional: alert (Following commands, no apparent distress) Head: normocephalic Respiratory: other (Coarse breath sounds bilaterally, no wheezing) Cardiovascular: regular rate and rhythm (S1-S2 heard) Gastrointestinal: soft, non-tender, bowel sounds Extremities: other (Amputation) Labs Result Diagram: 05/08/18 0536 05/08/18 0536 Results 24hrs Laboratory Tests Test 05/07/18 17:08 05/07/18 21:26 05/08/18 05:36 05/08/18 07:18 Bedside Glucose 150 192 162 White Blood Count 7.2 # Red Blood Count 3.33 L Hemoglobin 10.5 L Hematocrit 32.3 L Mean Corpuscular 97.0 Volume Mean Corpuscular 31.5 Hemoglobin Mean Corpuscular 32.5 Hemoglobin Concent Red Cell 17.2 H Distribution Width Platelet Count 176 Mean Platelet Volume 10.3 Immature 1.100 H Granulocytes % Neutrophils % 67.7 Lymphocytes % 18.1 Monocytes % 11.0 Eosinophils % 1.8 Basophils % 0.3 Nucleated Red Blood 0.0 Cells % Immature 0.080 H Granulocytes # Neutrophils # 4.9 Lymphocytes # 1.3 Monocytes # 0.8 Eosinophils # 0.1 Basophils # 0.0 Nucleated Red Blood 0.0 Cells # Sodium Level 141 Potassium Level 3.9 Chloride Level 101 Carbon Dioxide Level 23 Anion Gap 17 H Blood Urea Nitrogen 50 H Creatinine 7.19 H Est Glomerular 8 L Filtrat Rate mL/min Glucose Level 164 Calcium Level 8.7 Test 05/08/18 12:01 Bedside Glucose 271 H Medications Medications Current Medications IV Flush (NS 3 ml) 3 ml PER PROTOCOL IV ; Start 05/01/18 at 16:00 Insulin Aspart (Novolog Insulin Pen) NOVOLOG *MILD* ALGORITHM WITH MEALS BEDTIME SC Last administered on 05/08/18 12:10; Admin Dose 4 UNIT; Start 05/01/18 at 18:00 Ascorbic Acid (Vitamin C) 500 mg DAILY PO Last administered on 05/08/18 08:10; Admin Dose 500 MG; Start 05/02/18 at 09:00 Docusate Sodium (Colace) 200 mg HS PO Last administered on 05/07/18 21:26; Admin Dose 200 MG; Start 05/01/18 at 21:00 Ferrous Sulfate (Ferrous Sulfate (Ec)) 325 mg DAILY PO Last administered on 05/08/18 08:11; Admin Dose 325 MG; Start 05/02/18 at 09:00 Levothyroxine Sodium (Synthroid) 50 mcg BEFORE BREAKFAST PO Last administered on 05/08/18 08:10; Admin Dose 50 MCG; Start 05/02/18 at 07:00 Multivitamins Therapeutic (Theragran) 1 tab DAILY PO Last administered on 05/08/18 08:10; Admin Dose 1 TAB; Start 05/02/18 at 09:00 Sevelamer Carbonate (Renvela) 0.8 gm WITH MEALS PO Last administered on 05/08/18 12:03; Admin Dose 0.8 GM; Start 05/01/18 at 18:00 Vancomycin HCl (Vanco Iv Per Pharmacy) VANCOMYCIN PER PHARMACY PER PROTOCOL XX ; Start 05/02/18 at 07:30 Epoetin Gato (Epogen (Esrd)) 10,000 units MoWeFr@17 SC Last administered on 05/07/18 17:10; Admin Dose 10,000 UNITS; Start 05/02/18 at 17:00 Carvedilol (Coreg) 3.125 mg BID PO Last administered on 05/07/18at 21:27; Admin Dose 3.125 MG; Start 05/03/18 at 15:00 Ondansetron HCl (Zofran Inj) 4 mg Q4H PRN IV NAUSEA AND/OR VOMITING Last administered on 05/04/18at 14:05; Admin Dose 4 MG; Start 05/04/18 at 14:00 Acetaminophen (Tylenol Tab) 500 mg Q6H PRN PO MILD PAIN(1-3)OR ELEVATED TEMP; Start 05/04/18 at 17:00 Meropenem/Sodium Chloride 50 ml @ 100 mls/hr Q24H IVPB Last administered on 05/08/18 08:11; Admin Dose 100 MLS/HR; Start 05/05/18 at 09:00 Levalbuterol (Xopenex Neb) 0.63 mg Q8H RESP THERAPY HHN Last administered on 05/08/18at 08:48; Admin Dose 0.63 MG; Start 05/06/18 at 00:00 Miscellaneous Information 1 ea NOTE XX ; Start 05/06/18 at 15:30 Glucose (Glutose) 15 gm Q15M PRN PO DECREASED GLUCOSE; Start 05/06/18 at 15:30 Glucose (Glutose) 22.5 gm Q15M PRN PO DECREASED GLUCOSE; Start 05/06/18 at 15:30 Dextrose (D50w Syringe) 25 ml Q15M PRN IV DECREASED GLUCOSE; Start 05/06/18 at 15:30 Dextrose (D50w Syringe) 50 ml Q15M PRN IV DECREASED GLUCOSE; Start 05/06/18 at 15:30 Glucagon (Glucagen) 1 mg Q15M PRN IM DECREASED GLUCOSE; Start 05/06/18 at 15:30 Glucose (Glutose) 15 gm Q15M PRN BUCCAL DECREASED GLUCOSE; Start 05/06/18 at 15:30 Vancomycin HCl 250 ml @ 125 mls/hr Q96H IVPB Last administered on 05/07/18at 15:52; Admin Dose 125 MLS/HR; Start 05/07/18 at 16:00 Lactobacillus Acidophilus/ Rhamnosus (Culturelle) 1 cap BID PO Last admini stered on 05/08/18at 08:10; Admin Dose 1 CAP; Start 05/07/18 at 21:00 Atorvastatin Calcium (Lipitor) 20 mg QHS PO Last administered on 05/07/18at 21:26; Admin Dose 20 MG; Start 05/07/18 at 21:00 Miscellaneous Information 1 tab DAILY PO ; Start 05/08/18 at 09:00; Status UNV Pantoprazole (Protonix Tab) 40 mg BID@0600,1800 PO ; Start 05/07/18 at 18:00 René Garcia DO May 08, 2018 15:54
[2018-05-08] MEDS: HEPARIN 1000 UNITS/ML 10 ML INJ CATHETER PRN (17:29)
[2018-05-08] MEDS: DOCUSATE SODIUM 100 MG CAP PO SCH (21:05)
[2018-05-08] MEDS: ATORVASTATIN 20 MG TAB PO SCH (21:05)
[2018-05-09] VITALS (12 sets, daily range): BP systolic 95–122; BP diastolic 42–58; PULSE 64–82; RESP 18–19
[2018-05-09] MEDS: PANTOPRAZOLE (EC) 40 MG TAB PO SCH ×2 (06:00→17:15)
[2018-05-09] MEDS: INSULIN ASPART [NOVOLOG] 3 ML PEN SC SCH ×4 (08:00→20:52)
[2018-05-09] MEDS: ASCORBIC ACID 500 MG TAB PO SCH (08:05)
[2018-05-09] MEDS: LACTOBACILLUS RHAMNOSUS CAP PO SCH ×2 (08:05→20:52)
[2018-05-09] MEDS: LEVOTHYROXINE 50 MCG TAB PO SCH (08:05)
[2018-05-09] MEDS: MULTIVITAMINS THERAPEUTIC TAB PO SCH (08:05)
[2018-05-09] MEDS: FERROUS SULFATE (EC) 325 MG TAB PO SCH (08:05)
[2018-05-09] MEDS: SEVELAMER CARBONATE 0.8 GM PKT PO SCH ×3 (08:06→17:13)
[2018-05-09] MEDS: MEROPENEM 500MG/50 ML (PMX) 50 ML IVPB SCH (08:11)
--- NOTE | 2018-05-09 09:08 | PN ---
DATE: 05/09/2018 SUBJECTIVE: The patient had hemodialysis yesterday, tolerated well. No other events noted. OBJECTIVE: VITAL SIGNS: Blood pressure is 100/45, pulse 70, respiration is 19, temperature 97.7. HEENT: Head is normocephalic. NECK: Supple. HEART: Regular rate. LUNGS: Show diminished breath sounds at base. ABDOMEN: Soft, nontender to palpation without rebound or guarding. EXTREMITIES: Negative for clubbing, cyanosis, no edema. DERMATOLOGIC: No rashes. MUSCULOSKELETAL: No joint effusion. NEUROLOGIC: No change in exam. MEDICATIONS: Reviewed. LABORATORY DATA: Has been reviewed. ASSESSMENT AND PLAN: 1. End-stage renal disease. The patient had hemodialysis yesterday and tolerated well. Plan for di alysis tomorrow. 2. Anemia. Monitor hemoglobin and hematocrit levels. Continue Epogen. 3. Mineral bone disorder, monitor calcium and phosphorus levels. 4. Gastritis. The patient is status post EGD. Continue proton pump inhibitor. 5. Sepsis. Etiology is likely secondary to pneumonia. The patient's blood cultures have been negat cesar to date. Continue current antibiotic regimen. Follow up with infectious disease. 6. Acute respiratory failure, improved. 7. Encephalopathy, improved. 8. Diabetes. Continue current insulin regimen. 9. Coronary artery disease. Continue medical management. 10. Hypothyroidism. Continue Synthroid. 11. Hypertension. Continue current blood pressure regimen. 12. Dyslipidemia. Dictated By: DANISHA PARIS DO NR/NTS Conf#: [id number] DID#: [id number] CC: NHUNG STUBBS MD;*End*
[2018-05-09] MEDS: LEVALBUTEROL (NEB) 0.63 MG/3 ML AMP HHN SCH ×3 (10:33→17:10)
--- NOTE | 2018-05-09 12:16 | CONS ---
Assessment/Plan Assessment/Plan Hospital Course (Demo Recall) SIRS/sepsis Preserved ejection fraction Myocardial infarction Acute blood loss anemia End-stage renal disease on hemodialysis Diabetes History of open heart surgery-likely CABG -Continue statin therapy -Titrate beta-ralph as heart rate and blood pressure permits -No antiplatelet or anticoagulant therapy secondary to severe blood loss anemia -Fluid management via hemodialysis as per nephrology Consultation Date/Type/Reason Admit Date/Time May 01, 2018 at 13:32 Initial Consult Date Type of Consult Cardiology Requesting Provider: YOSEF MILLER NP Date/Time of Note DATE: 05/09/18 TIME: 12:15 24 HR Interval Summary Free Text/Dictation Denies shortness of breath, chest pain, dizziness Exam/Review of Systems Vital Signs Vitals Vital Signs Date Temp Pulse Resp B/P (MAP) Pulse Ox O2 O2 Flow FiO2 Time Delivery Rate 05/09/18 69 12:05 05/09/18 98.1 18 96/54 (68) 96 11:12 05/09/18 21 10:37 05/08/18 Room Air 19:15 05/07/18 2.0 09:15 Intake and Output 05/08/18 05/08/18 05/09/18 1515:00 23:00 07:00 IntakeIntake Total 1640 ml 30 ml OutputOutput Total 2650 ml 100 ml BalanceBalance -1010 ml -70 ml Exam Constitutional: alert, oriented (No apparent distress) Respiratory: other (Coarse breath sounds bilaterally, no wheezing) Cardiovascular: regular rate and rhythm (S1-S2 heard) Gastrointestinal: soft, non-tender, bowel sounds Extremities: other (Amputation) Labs Result Diagram: 05/09/18 0944 05/09/18 0944 Results 24hrs Laboratory Tests Test 05/08/18 17:29 05/08/18 21:04 05/09/18 07:42 05/09/18 09:44 Bedside Glucose 146 140 140 White Blood Count 8.7 # Red Blood Count 3.57 L Hemoglobin 11.6 L Hematocrit 35.4 L Mean Corpuscular 99.2 Volume Mean Corpuscular 32.5 Hemoglobin Mean Corpuscular 32.8 Hemoglobin Concent Red Cell 17.5 H Distribution Width Platelet Count 169 Mean Platelet Volume 10.5 H Immature 0.900 H Granulocytes % Neutrophils % 69.5 Lymphocytes % 16.0 Monocytes % 12.4 H Eosinophils % 0.9 Basophils % 0.3 Nucleated Red Blood 0.0 Cells % Immature 0.080 H Granulocytes # Neutrophils # 6.0 Lymphocytes # 1.4 Monocytes # 1.1 H Eosinophils # 0.1 Basophils # 0.0 Nucleated Red Blood 0.0 Cells # Sodium Level 138 Potassium Level 4.3 Chloride Level 95 L Carbon Dioxide Level 28 Anion Gap 15 H Blood Urea Nitrogen 38 #H Creatinine 5.71 H Est Glomerular 10 L Filtrat Rate mL/min Glucose Level 213 Calcium Level 9.3 Phosphorus Level 4.4 Magnesium Level 2.3 Total Bilirubin 0.4 Direct Bilirubin 0.00 Indirect Bilirubin 0.4 Aspartate Amino 25 Transf (AST/SGOT) Alanine 24 Aminotransferase (AL T/SGPT) Alkaline Phosphatase 148 H Total Protein 8.1 Albumin 4.3 Globulin 3.80 H Albumin/Globulin 1.13 Ratio Medications Medications Current Medications IV Flush (NS 3 ml) 3 ml PER PROTOCOL IV ; Start 05/01/18 at 16:00 Insulin Aspart (Novolog Insulin Pen) NOVOLOG *MILD* ALGORITHM WITH MEALS BEDTIME SC Last administered on 05/08/18 17:37; Admin Dose 1 UNIT; Start 05/01/18 at 18:00 Ascorbic Acid (Vitamin C) 500 mg DAILY PO Last administered on 05/09/18 08:05; Admin Dose 500 MG; Start 05/02/18 at 09:00 Docusate Sodium (Colace) 200 mg HS PO Last administered on 05/08/18 21:05; Admin Dose 200 MG; Start 05/01/18 at 21:00 Ferrous Sulfate (Ferrous Sulfate (Ec)) 325 mg DAILY PO Last administered on 05/09/18 08:05; Admin Dose 325 MG; Start 05/02/18 at 09:00 Levothyroxine Sodium (Synthroid) 50 mcg BEFORE BREAKFAST PO Last administered on 05/09/18 08:05; Admin Dose 50 MCG; Start 05/02/18 at 07:00 Multivitamins Therapeutic (Theragran) 1 tab DAILY PO Last administered on 05/09/18 08:05; Admin Dose 1 TAB; Start 05/02/18 at 09:00 Sevelamer Carbonate (Renvela) 0.8 gm WITH MEALS PO Last administered on 05/09/18 08:06; Admin Dose 0.8 GM; Start 05/01/18 at 18:00 Vancomycin HCl (Vanco Iv Per Pharmacy) VANCOMYCIN PER PHARMACY PER PROTOCOL XX ; Start 05/02/18 at 07:30 Epoetin Gato (Epogen (Esrd)) 10,000 units MoWeFr@17 SC Last administered on 05/07/18at 17:10; Admin Dose 10,000 UNITS; Start 05/02/18 at 17:00 Carvedilol (Coreg) 3.125 mg BID PO Last administered on 05/09/18at 08:07; Admin Dose 3.125 MG; Start 05/03/18 at 15:00 Ondansetron HCl (Zofran Inj) 4 mg Q4H PRN IV NAUSEA AND/OR VOMITING Last administered on 05/04/18at 14:05; Admin Dose 4 MG; Start 05/04/18 at 14:00 Acetaminophen (Tylenol Tab) 500 mg Q6H PRN PO MILD PAIN(1-3)OR ELEVATED TEMP; Start 05/04/18 at 17:00 Meropenem/Sodium Chloride 50 ml @ 100 mls/hr Q24H IVPB Last administered on 05/09/18at 08:11; Admin Dose 100 MLS/HR; Start 05/05/18 at 09:00 Levalbuterol (Xopenex Neb) 0.63 mg Q8H RESP THERAPY HHN Last administered on 05/09/18at 10:33; Admin Dose 0.63 MG; Start 05/06/18 at 00:00 Miscellaneous Information 1 ea NOTE XX ; Start 05/06/18 at 15:30 Glucose (Glutose) 15 gm Q15M PRN PO DECREASED GLUCOSE; Start 05/06/18 at 15:30 Glucose (Glutose) 22.5 gm Q15M PRN PO DECREASED GLUCOSE; Start 05/06/18 at 15:30 Dextrose (D50w Syringe) 25 ml Q15M PRN IV DECREASED GLUCOSE; Start 05/06/18 at 15:30 Dextrose (D50w Syringe) 50 ml Q15M PRN IV DECREASED GLUCOSE; Start 05/06/18 at 15:30 Glucagon (Glucagen) 1 mg Q15M PRN IM DECREASED GLUCOSE; Start 05/06/18 at 15:30 Glucose (Glutose) 15 gm Q15M PRN BUCCAL DECREASED GLUCOSE; Start 05/06/18 at 15:30 Vancomycin HCl 250 ml @ 125 mls/hr Q96H IVPB Last administered on 05/07/18 15:52; Admin Dose 125 MLS/HR; Start 05/07/18 at 16:00 Lactobacillus Acidophilus/ Rhamnosus (Culturelle) 1 cap BID PO Last adminis tered on 05/09/18at 08:05; Admin Dose 1 CAP; Start 05/07/18 at 21:00 Atorvastatin Calcium (Lipitor) 20 mg QHS PO Last administered on 05/08/18 21:05; Admin Dose 20 MG; Start 05/07/18 at 21:00 Vitamin B Complex/ Vitamin C (Berocca) 1 cap DAILY PO ; Start 05/09/18 at 09:00 Pantoprazole (Protonix Tab) 40 mg BID@0600,1800 PO Last administered on 05/08/18 18:02; Admin Dose 40 MG; Start 05/07/18 at 18:00 Heparin Sodium (Porcine) (Heparin (1000 Units/ml)) 3,300 unit PRN PRN CATHETER Dialysis Last administered on 05/08/18 17:29; Admin Dose 3,300 UNIT; Start 05/08/18 at 17:00 René Garcia DO May 09, 2018 12:16
--- NOTE | 2018-05-09 14:02 | CONS ---
Assessment/Plan Assessment/Plan Hospital Course (Demo Recall) - fever, diaphoresis and chills associated with dialysis prior to admission and again on 05/04/2018, concerning for possible catheter related bloodstream infection. Another possibility is fever due to GIB - ESRD on HD via HD catheter on R chest wall. Pt does not remember how old the catheter is - Pyuria r/o UTI - GIB, scheduled for EGD on 05/05/2018 - DM - Hgb A1c 6.8% - CAD - LLL infiltrate vs. atelectasis on CXR upon admission but Pt does not have resp Sx - s/p type 2 IL vs. demand ischemia due to acute on chronic anemia - acute on chronic anemia - prostatic hypertrophy - hypothyroidism - s/p coronary artery bypass grafting - h/o previous IL - h/o diabetic wound of RLE - status post right BKA Recommendations: - Pending: Blood cultures from 05/05/18 (NGTD), procalcitonin from 05/04 (in process), and repeat blood cx from HD catheter 05/06/18 (NGTD) - Discontinue IV vancomycin (05/02/2018-) and renally dosed meropenem (05/05/2018-) and monitor off antibiotics. Management d/w patient and with Dr. Aviles in detail. Thank you Consultation Date/Type/Reason Admit Date/Time May 01, 2018 at 13:32 Initial Consult Date 05/04/18 Type of Consult ID Requesting Provider: YOSEF MILLER NP Date/Time of Note DATE: 05/09/18 TIME: 14:00 24 HR Interval Summary Free Text/Dictation The patient has remained afebrile with no acute issues reported by nursing. The patient tells me "i feel fine, no problemas." When I was performing his physical assessment, he suddenly jerked his body and made a painful sounding noise. I was startled and screamed in fright and asked him if he was okay. He then began to laugh loudly at me. Periodically for the rest of physical assessment, he attempted to do the same each time I moved to another body system such as abdomen, or palpating pulses. He continued to laugh each time with this. Exam/Review of Systems Exam Vitals Vital Signs Date Temp Pulse Resp B/P (MAP) Pulse Ox O2 O2 Flow FiO2 Time Delivery Rate 05/09/18 69 12:05 05/09/18 98.1 18 96/54 (68) 96 11:12 05/09/18 21 10:37 05/08/18 Room Air 19:15 05/07/18 2.0 09:15 Intake and Output 05/08/18 05/08/18 05/09/18 1515:00 23:00 07:00 IntakeIntake Total 1640 ml 30 ml OutputOutput Total 2650 ml 100 ml BalanceBalance -1010 ml -70 ml Allergies Coded Allergies No Known Allergy (Unverified05/01/18) Exam Constitutional: alert, oriented, well developed, other (laughing) Psych: no complaints, nl mood/affect Head: normocephalic Eyes: nl conjunctiva, nl lids, nl sclera ENMT: nl external ears & nose, nl nasal mucosa & septum, mucosa pink and moist Neck: supple, non-tender Respiratory: clear to auscultation, normal air movement Cardiovascular: regular rate and rhythm, nl pulses Gastrointestinal: soft, non-tender, bowel sounds (normoactive ) Genitourinary - Male: other (Right chest HD catheter - site is c/d/i without erythema, drainage, or tenderness around the catheter site. ) Extremities: other (R healed BKA) Neurological: FUNERAL PRE NEED CONSULTANT II-XII intact, nl mental status, nl speech, nl strength Skin: nl turgor; other (bruising left hip/flank noted) No rash or lesions Results Result Diagram: 05/09/18 0944 05/09/18 0944 Results 24hrs Laboratory Tests Test 05/08/18 17:29 05/08/18 21:04 05/09/18 07:42 05/09/18 09:44 Bedside Glucose 146 140 140 White Blood Count 8.7 # Red Blood Count 3.57 L Hemoglobin 11.6 L Hematocrit 35.4 L Mean Corpuscular 99.2 Volume Mean Corpuscular 32.5 Hemoglobin Mean Corpuscular 32.8 Hemoglobin Concent Red Cell 17.5 H Distribution Width Platelet Count 169 Mean Platelet Volume 10.5 H Immature 0.900 H Granulocytes % Neutrophils % 69.5 Lymphocytes % 16.0 Monocytes % 12.4 H Eosinophils % 0.9 Basophils % 0.3 Nucleated Red Blood 0.0 Cells % Immature 0.080 H Granulocytes # Neutrophils # 6.0 Lymphocytes # 1.4 Monocytes # 1.1 H Eosinophils # 0.1 Basophils # 0.0 Nucleated Red Blood 0.0 Cells # Sodium Level 138 Potassium Level 4.3 Chloride Level 95 L Carbon Dioxide Level 28 Anion Gap 15 H Blood Urea Nitrogen 38 #H Creatinine 5.71 H Est Glomerular 10 L Filtrat Rate mL/min Glucose Level 213 Calcium Level 9.3 Phosphorus Level 4.4 Magnesium Level 2.3 Total Bilirubin 0.4 Direct Bilirubin 0.00 Indirect Bilirubin 0.4 Aspartate Amino 25 Transf (AST/SGOT) Alanine 24 Aminotransferase (AL T/SGPT) Alkaline Phosphatase 148 H Total Protein 8.1 Albumin 4.3 Globulin 3.80 H Albumin/Globulin 1.13 Ratio Test 05/09/18 12:12 Bedside Glucose 235 H Medications Medication Current Medications IV Flush (NS 3 ml) 3 ml PER PROTOCOL IV ; Start 05/01/18 at 16:00 Insulin Aspart (Novolog Insulin Pen) NOVOLOG *MILD* ALGORITHM WITH MEALS BEDTIME SC Last administered on 05/09/18 12:17; Admin Dose 3 UNIT; Start 05/01/18 at 18:00 Ascorbic Acid (Vitamin C) 500 mg DAILY PO Last administered on 05/09/18 08:05; Admin Dose 500 MG; Start 05/02/18 at 09:00 Docusate Sodium (Colace) 200 mg HS PO Last administered on 05/08/18 21:05; Admin Dose 200 MG; Start 05/01/18 at 21:00 Ferrous Sulfate (Ferrous Sulfate (Ec)) 325 mg DAILY PO Last administered on 05/09/18 08:05; Admin Dose 325 MG; Start 05/02/18 at 09:00 Levothyroxine Sodium (Synthroid) 50 mcg BEFORE BREAKFAST PO Last administered on 05/09/18 08:05; Admin Dose 50 MCG; Start 05/02/18 at 07:00 Multivitamins Therapeutic (Theragran) 1 tab DAILY PO Last administered on 05/09/18 08:05; Admin Dose 1 TAB; Start 05/02/18 at 09:00 Sevelamer Carbonate (Renvela) 0.8 gm WITH MEALS PO Last administered on 05/09/18 12:13; Admin Dose 0.8 GM; Start 05/01/18 at 18:00 Vancomycin HCl (Vanco Iv Per Pharmacy) VANCOMYCIN PER PHARMACY PER PROTOCOL XX ; Start 05/02/18 at 07:30 Epoetin Gato (Epogen (Esrd)) 10,000 units MoWeFr@17 SC Last administered on 05/07/18at 17:10; Admin Dose 10,000 UNITS; Start 05/02/18 at 17:00 Carvedilol (Coreg) 3.125 mg BID PO Last administered on 05/09/18at 08:07; Admin Dose 3.125 MG; Start 05/03/18 at 15:00 Ondansetron HCl (Zofran Inj) 4 mg Q4H PRN IV NAUSEA AND/OR VOMITING Last administered on 05/04/18at 14:05; Admin Dose 4 MG; Start 05/04/18 at 14:00 Acetaminophen (Tylenol Tab) 500 mg Q6H PRN PO MILD PAIN(1-3)OR ELEVATED TEMP; Start 05/04/18 at 17:00 Meropenem/Sodium Chloride 50 ml @ 100 mls/hr Q24H IVPB Last administered on 05/09/18at 08:11; Admin Dose 100 MLS/HR; Start 05/05/18 at 09:00 Levalbuterol (Xopenex Neb) 0.63 mg Q8H RESP THERAPY HHN Last administered on 05/09/18at 10:33; Admin Dose 0.63 MG; Start 05/06/18 at 00:00 Miscellaneous Information 1 ea NOTE XX ; Start 05/06/18 at 15:30 Glucose (Glutose) 15 gm Q15M PRN PO DECREASED GLUCOSE; Start 05/06/18 at 15:30 Glucose (Glutose) 22.5 gm Q15M PRN PO DECREASED GLUCOSE; Start 05/06/18 at 15:30 Dextrose (D50w Syringe) 25 ml Q15M PRN IV DECREASED GLUCOSE; Start 05/06/18 at 15:30 Dextrose (D50w Syringe) 50 ml Q15M PRN IV DECREASED GLUCOSE; Start 05/06/18 at 15:30 Glucagon (Glucagen) 1 mg Q15M PRN IM DECREASED GLUCOSE; Start 05/06/18 at 15:30 Glucose (Glutose) 15 gm Q15M PRN BUCCAL DECREASED GLUCOSE; Start 05/06/18 at 15:30 Vancomycin HCl 250 ml @ 125 mls/hr Q96H IVPB Last administered on 05/07/18 15:52; Admin Dose 125 MLS/HR; Start 05/07/18 at 16:00 Lactobacillus Acidophilus/ Rhamnosus (Culturelle) 1 cap BID PO Last administered on 05/09/18at 08:05; Admin Dose 1 CAP; Start 05/07/18 at 21:00 Atorvastatin Calcium (Lipitor) 20 mg QHS PO Last administered on 05/08/18at 21:05; Admin Dose 20 MG; Start 05/07/18 at 21:00 Vitamin B Complex/ Vitamin C (Berocca) 1 cap DAILY PO ; Start 05/09/18 at 09:00 Pantoprazole (Protonix Tab) 40 mg BID@0600,1800 PO Last administered on 04/25 18:02; Admin Dose 40 MG; Start 05/07/18 at 18:00 Heparin Sodium (Porcine) (Heparin (1000 Units/ml)) 3,300 unit PRN PRN CATHETER Dialysis Last administered on 05/08/18at 17:29; Admin Dose 3,300 UNIT; Start 05/08/18 at 17:00 DIAMANTE LU NP May 09, 2018 14:02
[2018-05-09] MEDS: VITAMIN B COMPLEX/VIT C CAP PO SCH (17:13)
--- NOTE | 2018-05-09 19:51 | PN ---
Date/Time of Note Date/Time of Note DATE: 05/09/18 TIME: 19:49 Assessment/Plan VTE Prophylaxis Risk score (from Ns)>0 risk: 3 SCD applied (from Ns): No SCD contraindicated: low risk/ambulating Pharmacological prophylaxis: NA/contraindicated Pharm contraindication: bleeding Lines/Catheters [facility] Saline Lock Urinary Cath still in place: No Assessment/Plan Hospital Course A/P 1. Sepsis, severe due to hcap, stable finishing antibiotics 2. HCAP stable finishing antibiotics 3. Acute hypoxic respiratory failure multifactorial- #2 vs DD vs anemia assoc pul edema, stable improved, O2 as needed 4. Anemia, mod/ severe, possible acute blood loss, sp EGD: Gastritis, follow-up on path. outpt colonoscopy. No asa ~ 2 weeks 5. Abn troponin: Secondary FL vs primary NSTEMI. no chest pain/ arrhythmias, therefore continue medical management. 6. Chr CAD/CABG/ consider stress cath as indicated. Not a candidate for asa due to #4. 7. Failure to thrive, transfer to snf Saturday; needs advanced care planning reevaluated 8. Hypothyroidism 9. Type 2 diabetes 10. BPH 11. ESRD stable continue dialysis Saturday 12. Pulmonary hypertension? 13. Dialysis access right chest infection? appears not a source of infection at present. 14. Right BKA status 15. Nonadherence patient has some frustrating behavior. S: 05/05: events noted 05/06: No events 05/07 no distress. Tolerating diet. No active bleed. No fever. 05/08: Refused insulin sliding coverage. No fever dyspnea or diarrhea. 05/09: no distress O: vss PE No pallor/ JVD Reg no m/r/g Dimin bilaterally; rt access c/d/i Bs+ nt nd no RRG No edema rt bka status Result Diagram: 05/09/1844 05/09/18 0944 Results 24hrs Laboratory Tests Test 05/08/18 21:04 05/09/18 07:42 05/09/18 09:44 05/09/18 12:12 Bedside Glucose 140 140 235 H White Blood Count 8.7 # Red Blood Count 3.57 L Hemoglobin 11.6 L Hematocrit 35.4 L Mean Corpuscular 99.2 Volume Mean Corpuscular 32.5 Hemoglobin Mean Corpuscular 32.8 Hemoglobin Concent Red Cell 17.5 H Distribution Width Platelet Count 169 Mean Platelet Volume 10.5 H Immature 0.900 H Granulocytes % Neutrophils % 69.5 Lymphocytes % 16.0 Monocytes % 12.4 H Eosinophils % 0.9 Basophils % 0.3 Nucleated Red Blood 0.0 Cells % Immature 0.080 H Granulocytes # Neutrophils # 6.0 Lymphocytes # 1.4 Monocytes # 1.1 H Eosinophils # 0.1 Basophils # 0.0 Nucleated Red Blood 0.0 Cells # Sodium Level 138 Potassium Level 4.3 Chloride Level 95 L Carbon Dioxide Level 28 Anion Gap 15 H Blood Urea Nitrogen 38 #H Creatinine 5.71 H Est Glomerular 10 L Filtrat Rate mL/min Glucose Level 213 Calcium Level 9.3 Phosphorus Level 4.4 Magnesium Level 2.3 Total Bilirubin 0.4 Direct Bilirubin 0.00 Indirect Bilirubin 0.4 Aspartate Amino 25 Transf (AST/SGOT) Alanine 24 Aminotransferase (AL T/SGPT) Alkaline Phosphatase 148 H Total Protein 8.1 Albumin 4.3 Globulin 3.80 H Albumin/Globulin 1.13 Ratio Test 05/09/18 17:10 Bedside Glucose 176 Exam/Review of Systems Exam Vitals Vital Signs Date Temp Pulse Resp B/P (MAP) Pulse Ox O2 O2 Flow FiO2 Time Delivery Rate 05/09/18 97.9 68 19 118/46 97 19:37 (70) 05/09/18 21 17:18 05/09/18 Aerosol 17:16 Mask 05/07/18 2.0 09:15 Intake and Output 05/08/18 05/08/18 05/09/18 1515:00 23:00 07:00 IntakeIntake Total 1640 ml 30 ml OutputOutput Total 2650 ml 100 ml BalanceBalance -1010 ml -70 ml Results Results 24hrs Laboratory Tests Test 05/08/18 21:04 05/09/18 07:42 05/09/18 09:44 05/09/18 12:12 Bedside Glucose 140 140 235 H White Blood Count 8.7 # Red Blood Count 3.57 L Hemoglobin 11.6 L Hematocrit 35.4 L Mean Corpuscular 99.2 Volume Mean Corpuscular 32.5 Hemoglobin Mean Corpuscular 32.8 Hemoglobin Concent Red Cell 17.5 H Distribution Width Platelet Count 169 Mean Platelet Volume 10.5 H Immature 0.900 H Granulocytes % Neutrophils % 69.5 Lymphocytes % 16.0 Monocytes % 12.4 H Eosinophils % 0.9 Basophils % 0.3 Nucleated Red Blood 0.0 Cells % Immature 0.080 H Granulocytes # Neutrophils # 6.0 Lymphocytes # 1.4 Monocytes # 1.1 H Eosinophils # 0.1 Basophils # 0.0 Nucleated Red Blood 0.0 Cells # Sodium Level 138 Potassium Level 4.3 Chloride Level 95 L Carbon Dioxide Level 28 Anion Gap 15 H Blood Urea Nitrogen 38 #H Creatinine 5.71 H Est Glomerular 10 L Filtrat Rate mL/min Glucose Level 213 Calcium Level 9.3 Phosphorus Level 4.4 Magnesium Level 2.3 Total Bilirubin 0.4 Direct Bilirubin 0.00 Indirect Bilirubin 0.4 Aspartate Amino 25 Transf (AST/SGOT) Alanine 24 Aminotransferase (AL T/SGPT) Alkaline Phosphatase 148 H Total Protein 8.1 Albumin 4.3 Globulin 3.80 H Albumin/Globulin 1.13 Ratio Test 05/09/18 17:10 Bedside Glucose 176 Medications Medication Current Medications IV Flush (NS 3 ml) 3 ml PER PROTOCOL IV ; Start 05/01/18 at 16:00 Insulin Aspart (Novolog Insulin Pen) NOVOLOG *MILD* ALGORITHM WITH MEALS BEDTIME SC Last administered on 05/09/18 17:21; Admin Dose 1 UNIT; Start 05/01/18 at 18:00 Ascorbic Acid (Vitamin C) 500 mg DAILY PO Last administered on 05/09/18at 08:05; Admin Dose 500 MG; Start 05/02/18 at 09:00 Docusate Sodium (Colace) 200 mg HS PO Last administered on 05/08/18 21:05; Admin Dose 200 MG; Start 05/01/18 at 21:00 Ferrous Sulfate (Ferrous Sulfate (Ec)) 325 mg DAILY PO Last administered on 05/09/18 08:05; Admin Dose 325 MG; Start 05/02/18 at 09:00 Levothyroxine Sodium (Synthroid) 50 mcg BEFORE BREAKFAST PO Last administered on 05/09/18 08:05; Admin Dose 50 MCG; Start 05/02/18 at 07:00 Multivitamins Therapeutic (Theragran) 1 tab DAILY PO Last administered on 05/09/18 08:05; Admin Dose 1 TAB; Start 05/02/18 at 09:00 Sevelamer Carbonate (Renvela) 0.8 gm WITH MEALS PO Last administered on 05/09/18at 17:13; Admin Dose 0.8 GM; Start 05/01/18 at 18:00 Vancomycin HCl (Vanco Iv Per Pharmacy) VANCOMYCIN PER PHARMACY PER PROTOCOL XX ; Start 05/02/18 at 07:30 Epoetin Gato (Epogen (Esrd)) 10,000 units MoWeFr@17 SC Last administered on 05/07/18at 17:10; Admin Dose 10,000 UNITS; Start 05/02/18 at 17:00; Status Hold Carvedilol (Coreg) 3.125 mg BID PO Last administered on 05/09/18at 08:07; Admin Dose 3.125 MG; Start 05/03/18 at 15:00 Ondansetron HCl (Zofran Inj) 4 mg Q4H PRN IV NAUSEA AND/OR VOMITING Last administered on 05/04/18at 14:05; Admin Dose 4 MG; Start 05/04/18 at 14:00 Acetaminophen (Tylenol Tab) 500 mg Q6H PRN PO MILD PAIN(1-3)OR ELEVATED TEMP; Start 05/04/18 at 17:00 Meropenem/Sodium Chloride 50 ml @ 100 mls/hr Q24H IVPB Last administered on 05/09/18at 08:11; Admin Dose 100 MLS/HR; Start 05/05/18 at 09:00 Levalbuterol (Xopenex Neb) 0.63 mg Q8H RESP THERAPY HHN Last administered on 05/09/18at 17:10; Admin Dose 0.63 MG; Start 05/06/18 at 00:00 Miscellaneous Information 1 ea NOTE XX ; Start 05/06/18 at 15:30 Glucose (Glutose) 15 gm Q15M PRN PO DECREASED GLUCOSE; Start 05/06/18 at 15:30 Glucose (Glutose) 22.5 gm Q15M PRN PO DECREASED GLUCOSE; Start 05/06/18 at 15:30 Dextrose (D50w Syringe) 25 ml Q15M PRN IV DECREASED GLUCOSE; Start 05/06/18 at 15:30 Dextrose (D50w Syringe) 50 ml Q15M PRN IV DECREASED GLUCOSE; Start 05/06/18 at 15:30 Glucagon (Glucagen) 1 mg Q15M PRN IM DECREASED GLUCOSE; Start 05/06/18 at 15:30 Glucose (Glutose) 15 gm Q15M PRN BUCCAL DECREASED GLUCOSE; Start 05/06/18 at 15:30 Vancomycin HCl 250 ml @ 125 mls/hr Q96H IVPB Last administered on 05/07/18 15:52; Admin Dose 125 MLS/HR; Start 05/07/18 at 16:00 Lactobacillus Acidophilus/ Rhamnosus (Culturelle) 1 cap BID PO Last administered on 05/09/18 08:05; Admin Dose 1 CAP; Start 05/07/18 at 21:00 Atorvastatin Calcium (Lipitor) 20 mg QHS PO Last administered on 05/08/18 21:05; Admin Dose 20 MG; Start 05/07/18 at 21:00 Vitamin B Complex/ Vitamin C (Berocca) 1 cap DAILY PO Last administered on 05/09/18at 17:13; Admin Dose 1 CAP; Start 05/09/18 at 09:00 Pantoprazole (Protonix Tab) 40 mg BID@0600,1800 PO Last administered on 05/09/18 17:15; Admin Dose 40 MG; Start 05/07/18 at 18:00 Heparin Sodium (Porcine) (Heparin (1000 Units/ml)) 3,300 unit PRN PRN CATHETER Dialysis Last administered on 05/08/18 17:29; Admin Dose 3,300 UNIT; Start 05/08/18 at 17:00 ROSA FARAH MD May 09, 2018 19:51
[2018-05-09] MEDS ORDERED: LEVALBUTEROL (NEB) 0.63 MG/3 ML AMP HHN PRN (20:00)
[2018-05-09] MEDS: ATORVASTATIN 20 MG TAB PO SCH (20:52)
[2018-05-09] MEDS: DOCUSATE SODIUM 100 MG CAP PO SCH (20:52)
[2018-05-10] VITALS (26 sets, daily range): BP systolic 85–138; BP diastolic 32–67; PULSE 60–81; RESP 16–19
[2018-05-10] MEDS: PANTOPRAZOLE (EC) 40 MG TAB PO SCH ×2 (06:00→17:32)
[2018-05-10] MEDS: ASCORBIC ACID 500 MG TAB PO SCH (08:33)
[2018-05-10] MEDS: FERROUS SULFATE (EC) 325 MG TAB PO SCH (08:33)
[2018-05-10] MEDS: MEROPENEM 500MG/50 ML (PMX) 50 ML IVPB SCH (08:33)
[2018-05-10] MEDS: SEVELAMER CARBONATE 0.8 GM PKT PO SCH ×3 (08:33→17:32)
[2018-05-10] MEDS: LACTOBACILLUS RHAMNOSUS CAP PO SCH ×2 (08:33→20:06)
[2018-05-10] MEDS: MULTIVITAMINS THERAPEUTIC TAB PO SCH (08:33)
[2018-05-10] MEDS: VITAMIN B COMPLEX/VIT C CAP PO SCH (08:33)
[2018-05-10] MEDS: INSULIN ASPART [NOVOLOG] 3 ML PEN SC SCH ×4 (08:39→20:13)
--- NOTE | 2018-05-10 10:00 | PN ---
Date/Time of Note Date/Time of Note DATE: 05/10/18 TIME: 09:59 Assessment/Plan VTE Prophylaxis Risk score (from Ns)>0 risk: 9 SCD applied (from Ns): No SCD contraindicated: other Pharmacological prophylaxis: other Lines/Catheters [facility] Saline Lock Urinary Cath still in place: No Assessment/Plan Hospital Course renal follow up no significant event overnight last hd was 2 days ago no fever, chills or melena OBJECTIVE: HEENT: Head is normocephalic. NECK: Supple. HEART: Regular rate. LUNGS: Show diminished breath sounds at base. ABDOMEN: Soft, nontender to palpation without rebound or guarding. EXTREMITIES: Negative for clubbing, cyanosis, no edema. DERMATOLOGIC: No rashes. MUSCULOSKELETAL: No joint effusion. NEUROLOGIC: No change in exam. MEDICATIONS: Reviewed. LABORATORY DATA: Has been reviewed. ASSESSMENT AND PLAN: 1. End-stage renal disease. continue hd today 2. Anemia. Monitor hemoglobin and hematocrit levels. Continue Epogen. 3. Mineral bone disorder, monitor calcium and phosphorus levels. 4. Gastritis. The patient is status post EGD. Continue proton pump inhibitor. 5. Sepsis. Etiology is likely secondary to pneumonia. The patient's blood cultures have been negative to date. Continue current antibiotic regimen. Follow up with infectious disease. 6. Acute respiratory failure, improved. 7. Encephalopathy, improved. 8. Diabetes. Continue current insulin regimen. 9. Coronary artery disease. Continue medical management. 10. Hypothyroidism. Continue Synthroid. 11. Hypertension. Continue current blood pressure regimen. 12. Dyslipidemia. Result Diagram: 05/09/18 0944 05/09/18 0944 Results 24hrs Laboratory Tests Test 05/09/18 12:12 05/09/18 17:10 05/09/18 20:25 05/10/18 07:48 Bedside Glucose 235 H 176 245 H 170 Exam/Review of Systems Exam Vitals Vital Signs Date Temp Pulse Resp B/P (MAP) Pulse Ox O2 O2 Flow FiO2 Time Delivery Rate 05/10/18 72 08:00 05/10/18 98.4 19 119/58 99 07:36 (78) 05/09/18 21 17:18 05/09/18 Aerosol 17:16 Mask 05/07/18 2.0 09:15 Intake and Output 05/09/18 05/09/18 05/10/18 1414:59 22:59 06:59 IntakeIntake Total 600 ml 150 ml OutputOutput Total 100 ml BalanceBalance 500 ml 150 ml Results Results 24hrs Laboratory Tests Test 05/09/18 12:12 05/09/18 17:10 05/09/18 20:25 05/10/18 07:48 Bedside Glucose 235 H 176 245 H 170 Medications Medication Current Medications IV Flush (NS 3 ml) 3 ml PER PROTOCOL IV ; Start 05/01/18 at 16:00 Insulin Aspart (Novolog Insulin Pen) NOVOLOG *MILD* ALGORITHM WITH MEALS BEDTIME SC Last administered on 05/10/18 08:39; Admin Dose 1 UNIT; Start 05/01/18 at 18:00 Ascorbic Acid (Vitamin C) 500 mg DAILY PO Last administered on 05/10/18 08:33; Admin Dose 500 MG; Start 05/02/18 at 09:00 Docusate Sodium (Colace) 200 mg HS PO Last administered on 05/09/18at 20:52; Admin Dose 200 MG; Start 05/01/18 at 21:00 Ferrous Sulfate (Ferrous Sulfate (Ec)) 325 mg DAILY PO Last administered on 05/10/18 08:33; Admin Dose 325 MG; Start 05/02/18 at 09:00 Levothyroxine Sodium (Synthroid) 50 mcg BEFORE BREAKFAST PO Last administered on 05/09/18 08:05; Admin Dose 50 MCG; Start 05/02/18 at 07:00 Multivitamins Therapeutic (Theragran) 1 tab DAILY PO Last administered on 05/10/18 08:33; Admin Dose 1 TAB; Start 05/02/18 at 09:00 Sevelamer Carbonate (Renvela) 0.8 gm WITH MEALS PO Last administered on 05/10/18 08:33; Admin Dose 0.8 GM; Start 05/01/18 at 18:00 Vancomycin HCl (Vanco Iv Per Pharmacy) VANCOMYCIN PER PHARMACY PER PROTOCOL XX ; Start 05/02/18 at 07:30 Epoetin Gato (Epogen (Esrd)) 10,000 units MoWeFr@17 SC Last administered on 05/07/18at 17:10; Admin Dose 10,000 UNITS; Start 05/02/18 at 17:00; Status Hold Carvedilol (Coreg) 3.125 mg BID PO Last administered on 05/09/18 20:52; Admin Dose 3.125 MG; Start 05/03/18 at 15:00 Ondansetron HCl (Zofran Inj) 4 mg Q4H PRN IV NAUSEA AND/OR VOMITING Last administered on 05/04/18at 14:05; Admin Dose 4 MG; Start 05/04/18 at 14:00 Acetaminophen (Tylenol Tab) 500 mg Q6H PRN PO MILD PAIN(1-3)OR ELEVATED TEMP; Start 05/04/18 at 17:00 Meropenem/Sodium Chloride 50 ml @ 100 mls/hr Q24H IVPB Last administered on 05/10/18 08:33; Admin Dose 100 MLS/HR; Start 05/05/18 at 09:00 Miscellaneous Information 1 ea NOTE XX ; Start 05/06/18 at 15:30 Glucose (Glutose) 15 gm Q15M PRN PO DECREASED GLUCOSE; Start 05/06/18 at 15:30 Glucose (Glutose) 22.5 gm Q15M PRN PO DECREASED GLUCOSE; Start 05/06/18 at 15:30 Dextrose (D50w Syringe) 25 ml Q15M PRN IV DECREASED GLUCOSE; Start 05/06/18 at 15:30 Dextrose (D50w Syringe) 50 ml Q15M PRN IV DECREASED GLUCOSE; Start 05/06/18 at 15:30 Glucagon (Glucagen) 1 mg Q15M PRN IM DECREASED GLUCOSE; Start 05/06/18 at 15:30 Glucose (Glutose) 15 gm Q15M PRN BUCCAL DECREASED GLUCOSE; Start 05/06/18 at 15:30 Vancomycin HCl 250 ml @ 125 mls/hr Q96H IVPB Last administered on 05/07/18 15:52; Admin Dose 125 MLS/HR; Start 05/07/18 at 16:00 Lactobacillus Acidophilus/ Rhamnosus (Culturelle) 1 cap BID PO Last administered on 05/10/18 08:33; Admin Dose 1 CAP; Start 05/07/18 at 21:00 Atorvastatin Calcium (Lipitor) 20 mg QHS PO Last administered on 05/09/18 20:52; Admin Dose 20 MG; Start 05/07/18 at 21:00 Vitamin B Complex/ Vitamin C (Berocca) 1 cap DAILY PO Last administered on 3/16/19at 08:33; Admin Dose 1 CAP; Start 05/09/18 at 09:00 Pantoprazole (Protonix Tab) 40 mg BID@0600,1800 PO Last administered on 05/09/18 at 17:15; Admin Dose 40 MG; Start 05/07/18 at 18:00 Heparin Sodium (Porcine) (Heparin (1000 Units/ml)) 3,300 unit PRN PRN CATHETER Dialysis Last administered on 05/08/18at 17:29; Admin Dose 3,300 UNIT; Start 05/08/18 at 17:00 Levalbuterol (Xopenex Neb) 0.63 mg Q4H RESP THERAPY PRN HHN WHEEZING AND SOB; Start 05/09/18 at 20:00 WANDER SIMS DO May 10, 2018 10:00
[2018-05-10] MEDS: HEPARIN 1000 UNITS/ML 10 ML INJ CATHETER PRN (13:44)
--- NOTE | 2018-05-10 15:03 | CONS ---
Assessment/Plan Assessment/Plan Assessment/Plan (Daily) - fever, diaphoresis and chills associated with dialysis prior to admission and again on 05/04/2018, concerning for possible catheter related bloodstream infection. Another possibility is fever due to GIB - ESRD on HD via HD catheter on R chest wall. Pt does not remember how old the catheter is - Pyuria r/o UTI - GIB, scheduled for EGD on 05/05/2018 - DM - Hgb A1c 6.8% - CAD - LLL infiltrate vs. atelectasis on CXR upon admission but Pt does not have resp Sx - s/p type 2 DC vs. demand ischemia due to acute on chronic anemia - acute on chronic anemia - prostatic hypertrophy - hypothyroidism - s/p coronary artery bypass grafting - h/o previous DC - h/o diabetic wound of RLE - status post right BKA Recommendations: - Pending: Blood cultures from 05/05/18 (NGTD) - procalcitonin from 05/04 - 50.34 - repeat blood cx from HD catheter 05/06/18 (NGTD)- no growth after 24 hrs - Discontinue IV vancomycin (05/02/2018-) and renally dosed meropenem (05/05/2018-) and monitor off antibiotics. Management d/w patient and with Dr. Aviles in detail. Thank you Consultation Date/Type/Reason Admit Date/Time May 01, 2018 at 13:32 Initial Consult Date 05/04/18 Requesting Provider: YOSEF MILLER NP Date/Time of Note DATE: 05/10/18 TIME: 14:57 24 HR Interval Summary Free Text/Dictation - afebrile, 72, 16, 121/41, O2 SAT - 98% RA - WBC 8.7 - procalcitonin - 50.34 - repeat blood cx from HD catheter 05/06/18 (NGTD)- no growth after 24 hrs Exam/Review of Systems Exam Vitals Vital Signs Date Temp Pulse Resp B/P (MAP) Pulse Ox O2 O2 Flow FiO2 Time Delivery Rate 05/10/18 72 16 121/41 98 Room Air 13:50 (67) 05/10/18 98.0 11:30 05/09/18 21 17:18 05/07/18 2.0 09:15 Intake and Output 05/09/18 05/09/18 05/10/18 1515:00 23:00 07:00 IntakeIntake Total 600 ml 150 ml OutputOutput Total 100 ml BalanceBalance 500 ml 150 ml Results Result Diagram: 05/09/18 0944 05/09/18 0944 Results 24hrs Laboratory Tests Test 05/09/18 17:10 05/09/18 20:25 05/10/18 07:48 05/10/18 12:11 Bedside Glucose 176 245 H 170 170 Medications Medication Current Medications IV Flush (NS 3 ml) 3 ml PER PROTOCOL IV ; Start 05/01/18 at 16:00 Insulin Aspart (Novolog Insulin Pen) NOVOLOG *MILD* ALGORITHM WITH MEALS BEDTIME SC Last administered on 05/10/18 12:14; Admin Dose 1 UNIT; Start 05/01/18 at 18:00 Ascorbic Acid (Vitamin C) 500 mg DAILY PO Last administered on 05/10/18 08:33; Admin Dose 500 MG; Start 05/02/18 at 09:00 Docusate Sodium (Colace) 200 mg HS PO Last administered on 05/09/18 20:52; Admin Dose 200 MG; Start 05/01/18 at 21:00 Ferrous Sulfate (Ferrous Sulfate (Ec)) 325 mg DAILY PO Last administered on 05/10/18 08:33; Admin Dose 325 MG; Start 05/02/18 at 09:00 Levothyroxine Sodium (Synthroid) 50 mcg BEFORE BREAKFAST PO Last administered on 05/09/18 08:05; Admin Dose 50 MCG; Start 05/02/18 at 07:00 Multivitamins Therapeutic (Theragran) 1 tab DAILY PO Last administered on 05/10/18 08:33; Admin Dose 1 TAB; Start 05/02/18 at 09:00 Sevelamer Carbonate (Renvela) 0.8 gm WITH MEALS PO Last administered on 05/10/18 12:12; Admin Dose 0.8 GM; Start 05/01/18 at 18:00 Epoetin Gato (Epogen (Esrd)) 10,000 units MoWeFr@17 SC Last administered on 05/07/18 17:10; Admin Dose 10,000 UNITS; Start 05/02/18 at 17:00; Status Hold Carvedilol (Coreg) 3.125 mg BID PO Last administered on 05/09/18 20:52; Admin Dose 3.125 MG; Start 05/03/18 at 15:00 Ondansetron HCl (Zofran Inj) 4 mg Q4H PRN IV NAUSEA AND/OR VOMITING Last administered on 05/04/18at 14:05; Admin Dose 4 MG; Start 05/04/18 at 14:00 Acetaminophen (Tylenol Tab) 500 mg Q6H PRN PO MILD PAIN(1-3)OR ELEVATED TEMP; Start 05/04/18 at 17:00 Miscellaneous Information 1 ea NOTE XX ; Start 05/06/18 at 15:30 Glucose (Glutose) 15 gm Q15M PRN PO DECREASED GLUCOSE; Start 05/06/18 at 15:30 Glucose (Glutose) 22.5 gm Q15M PRN PO DECREASED GLUCOSE; Start 05/06/18 at 15:30 Dextrose (D50w Syringe) 25 ml Q15M PRN IV DECREASED GLUCOSE; Start 05/06/18 at 15:30 Dextrose (D50w Syringe) 50 ml Q15M PRN IV DECREASED GLUCOSE; Start 05/06/18 at 15:30 Glucagon (Glucagen) 1 mg Q15M PRN IM DECREASED GLUCOSE; Start 05/06/18 at 15:30 Glucose (Glutose) 15 gm Q15M PRN BUCCAL DECREASED GLUCOSE; Start 05/06/18 at 15:30 Lactobacillus Acidophilus/ Rhamnosus (Culturelle) 1 cap BID PO Last administered on 05/10/18at 08:33; Admin Dose 1 CAP; Start 05/07/18 at 21:00 Atorvastatin Calcium (Lipitor) 20 mg QHS PO Last administered on 05/09/18at 20:52; Admin Dose 20 MG; Start 05/07/18 at 21:00 Vitamin B Complex/ Vitamin C (Berocca) 1 cap DAILY PO Last administered on 05/10/18at 08:33; Admin Dose 1 CAP; Start 05/09/18 at 09:00 Pantoprazole (Protonix Tab) 40 mg BID@0600,1800 PO Last administered on 05/09/18at 17:15; Admin Dose 40 MG; Start 05/07/18 at 18:00 Heparin Sodium (Porcine) (Heparin (1000 Units/ml)) 3,300 unit PRN PRN CATHETER Dialysis Last administered on 05/10/18at 13:44; Admin Dose 3,300 UNIT; Start 05/08/18 at 17:00 Levalbuterol (Xopenex Neb) 0.63 mg Q4H RESP THERAPY PRN HHN WHEEZING AND SOB; Start 05/09/18 at 20:00 ANALI ARORA May 10, 2018 15:03
--- NOTE | 2018-05-10 15:14 | PDOCDIS ---
Discharge Instructions CONDITION [id number] Patient Condition: [id number] Stable HOME CARE INSTRUCTIONS: [id number] Diet Instructions: [id number] Low Fat /Cholesterol ACTIVITY: [id number] Activity Restrictions: [id number] Slowly Increase Activity Do not Drive FOLLOW UP/APPOINTMENTS Follow-up Plan dialysis as before Dr Davis 1wk Dr Coleman 1-2wks Dr Aviles 2-4wks ROSA FARAH MD May 10, 2018 15:14
[2018-05-10] MEDS ORDERED: LACT1CAP28 PO (15:15)
[2018-05-10] MEDS ORDERED: PANT40TA4 PO (15:15)
[2018-05-10] MEDS ORDERED: CARV3.1260 PO (15:15)
--- NOTE | 2018-05-10 17:08 | PN ---
Date/Time of Note Date/Time of Note DATE: 05/10/18 TIME: 17:07 Assessment/Plan VTE Prophylaxis Risk score (from Ns)>0 risk: 8 SCD applied (from Ns): No SCD contraindicated: low risk/ambulating Pharmacological prophylaxis: LMWH Lines/Catheters IV Catheter Type (from [facility]): Saline Lock Urinary Cath still in place: No Assessment/Plan Hospital Course A/P 1. Sepsis, severe due to hcap, stable finishing antibiotics 2. HCAP stable finishing antibiotics 3. Acute hypoxic respiratory failure multifactorial- #2 vs DD vs anemia assoc pul edema, stable improved, O2 as needed 4. Anemia, mod/ severe, possible acute blood loss, sp EGD: Gastritis, follow-up on path. outpt colonoscopy. No asa ~ 2 weeks 5. Abn troponin: Secondary [place] vs primary NSTEMI. no chest pain/ arrhythmias, therefore continue medical management. 6. Chr CAD/CABG/ consider stress cath as indicated. Not a candidate for asa due to #4. 7. Failure to thrive, transfer to snf Saturday; needs advanced care planning reevaluated 8. Hypothyroidism 9. Type 2 diabetes 10. BPH 11. ESRD stable continue dialysis Saturday 12. Pulmonary hypertension? 13. Dialysis access right chest infection? appears not a source of infection at present. 14. Right BKA status 15. Nonadherence patient has some frustrating behavior. S: 05/05: events noted 05/06: No events 05/07 no distress. Tolerating diet. No active bleed. No fever. 05/08: Refused insulin sliding coverage. No fever dyspnea or diarrhea. 05/09: no distress 05/10: No distress. O: vss PE No pallor/ JVD Reg no m/r/g Dimin bilaterally; rt access c/d/i Bs+ nt nd no RRG No edema rt bka status Result Diagram: 05/09/18 0944 05/09/18 0944 Results 24hrs Laboratory Tests Test 05/09/18 17:10 05/09/18 20:25 05/10/18 07:48 05/10/18 12:11 Bedside Glucose 176 245 H 170 170 Exam/Review of Systems Exam Vitals Vital Signs Date Temp Pulse Resp B/P (MAP) Pulse Ox O2 O2 Flow FiO2 Time Delivery Rate 3/16/19 77 16:00 05/10/18 99.6 18 134/67 93 15:50 (89) 05/10/18 Room Air 13:50 05/09/18 21 17:18 05/07/18 2.0 09:15 Intake and Output 05/09/18 05/09/18 05/10/18 1515:00 23:00 07:00 IntakeIntake Total 600 ml 150 ml OutputOutput Total 100 ml BalanceBalance 500 ml 150 ml Results Results 24hrs Laboratory Tests Test 05/09/18 17:10 05/09/18 20:25 05/10/18 07:48 05/10/18 12:11 Bedside Glucose 176 245 H 170 170 Medications Medication Current Medications IV Flush (NS 3 ml) 3 ml PER PROTOCOL IV ; Start 05/01/18 at 16:00 Insulin Aspart (Novolog Insulin Pen) NOVOLOG *MILD* ALGORITHM WITH MEALS BEDTIME SC Last administered on 05/10/18 12:14; Admin Dose 1 UNIT; Start 05/01/18 at 18:00 Ascorbic Acid (Vitamin C) 500 mg DAILY PO Last administered on 05/10/18 08:33; Admin Dose 500 MG; Start 05/02/18 at 09:00 Docusate Sodium (Colace) 200 mg HS PO Last administered on 05/09/18 20:52; Admin Dose 200 MG; Start 05/01/18 at 21:00 Ferrous Sulfate (Ferrous Sulfate (Ec)) 325 mg DAILY PO Last administered on 08:33; Admin Dose 325 MG; Start 05/02/18 at 09:00 Levothyroxine Sodium (Synthroid) 50 mcg BEFORE BREAKFAST PO Last administered on 05/09/18 08:05; Admin Dose 50 MCG; Start 05/02/18 at 07:00 Multivitamins Therapeutic (Theragran) 1 tab DAILY PO Last administered on 05/10/18 08:33; Admin Dose 1 TAB; Start 05/02/18 at 09:00 Sevelamer Carbonate (Renvela) 0.8 gm WITH MEALS PO Last administered on 05/10/18 12:12; Admin Dose 0.8 GM; Start 05/01/18 at 18:00 Epoetin Gato (Epogen (Esrd)) 10,000 units MoWeFr@17 SC Last administered on 05/07/18 17:10; Admin Dose 10,000 UNITS; Start 05/02/18 at 17:00; Status Hold Carvedilol (Coreg) 3.125 mg BID PO Last administered on 05/09/18at 20:52; Admin Dose 3.125 MG; Start 05/03/18 at 15:00 Ondansetron HCl (Zofran Inj) 4 mg Q4H PRN IV NAUSEA AND/OR VOMITING Last administered on 05/04/18at 14:05; Admin Dose 4 MG; Start 05/04/18 at 14:00 Acetaminophen (Tylenol Tab) 500 mg Q6H PRN PO MILD PAIN(1-3)OR ELEVATED TEMP; Start 05/04/18 at 17:00 Miscellaneous Information 1 ea NOTE XX ; Start 05/06/18 at 15:30 Glucose (Glutose) 15 gm Q15M PRN PO DECREASED GLUCOSE; Start 05/06/18 at 15:30 Glucose (Glutose) 22.5 gm Q15M PRN PO DECREASED GLUCOSE; Start 05/06/18 at 15:30 Dextrose (D50w Syringe) 25 ml Q15M PRN IV DECREASED GLUCOSE; Start 05/06/18 at 15:30 Dextrose (D50w Syringe) 50 ml Q15M PRN IV DECREASED GLUCOSE; Start 05/06/18 at 15:30 Glucagon (Glucagen) 1 mg Q15M PRN IM DECREASED GLUCOSE; Start 05/06/18 at 15:30 Glucose (Glutose) 15 gm Q15M PRN BUCCAL DECREASED GLUCOSE; Start 05/06/18 at 15:30 Lactobacillus Acidophilus/ Rhamnosus (Culturelle) 1 cap BID PO Last administered on 05/10/18at 08:33; Admin Dose 1 CAP; Start 05/07/18 at 21:00 Atorvastatin Calcium (Lipitor) 20 mg QHS PO Last administered on 05/09/18 20:52; Admin Dose 20 MG; Start 05/07/18 at 21:00 Vitamin B Complex/ Vitamin C (Berocca) 1 cap DAILY PO Last administered on 05/10/18at 08:33; Admin Dose 1 CAP; Start 05/09/18 at 09:00 Pantoprazole (Protonix Tab) 40 mg BID@0600,1800 PO Last administered on 05/09/18at 17:15; Admin Dose 40 MG; Start 05/07/18 at 18:00 Heparin Sodium (Porcine) (Heparin (1000 Units/ml)) 3,300 unit PRN PRN CATHETER Dialysis Last administered on 05/10/18at 13:44; Admin Dose 3,300 UNIT; Start 05/08/18 at 17:00 Levalbuterol (Xopenex Neb) 0.63 mg Q4H RESP THERAPY PRN HHN WHEEZING AND SOB; Start 05/09/18 at 20:00 ROSA FARAH MD May 10, 2018 17:08
[2018-05-10] MEDS: DOCUSATE SODIUM 100 MG CAP PO SCH (20:06)
[2018-05-10] MEDS: ATORVASTATIN 20 MG TAB PO SCH (20:06)
[2018-05-11] VITALS (9 sets, daily range): BP systolic 122–141; BP diastolic 55–61; PULSE 68–73; RESP 18
[2018-05-11] MEDS: PANTOPRAZOLE (EC) 40 MG TAB PO SCH ×2 (06:00→06:09)
[2018-05-11] MEDS: LEVOTHYROXINE 50 MCG TAB PO SCH (06:09)
[2018-05-11] MEDS: SEVELAMER CARBONATE 0.8 GM PKT PO SCH ×2 (07:55→11:56)
[2018-05-11] MEDS: INSULIN ASPART [NOVOLOG] 3 ML PEN SC SCH ×2 (07:55→11:42)
[2018-05-11] MEDS: MULTIVITAMINS THERAPEUTIC TAB PO SCH (08:34)
[2018-05-11] MEDS: ASCORBIC ACID 500 MG TAB PO SCH (08:34)
[2018-05-11] MEDS: VITAMIN B COMPLEX/VIT C CAP PO SCH (08:34)
[2018-05-11] MEDS: FERROUS SULFATE (EC) 325 MG TAB PO SCH (08:35)
[2018-05-11] MEDS: LACTOBACILLUS RHAMNOSUS CAP PO SCH (08:35)
--- NOTE | 2018-05-11 11:11 | PN ---
Date/Time of Note Date/Time of Note DATE: 05/11/18 TIME: 11:10 Assessment/Plan VTE Prophylaxis Risk score (from Ns)>0 risk: 9 SCD applied (from Ns): No SCD contraindicated: other Pharmacological prophylaxis: other Lines/Catheters IV [facility] Type (from [facility] Saline Lock Urinary Cath still in place: No Assessment/Plan Hospital Course renal follow up no significant event overnight last hd was yesterday no fever, chills or melena OBJECTIVE: HEENT: Head is normocephalic. NECK: Supple. HEART: Regular rate. LUNGS: Show diminished breath sounds at base. ABDOMEN: Soft, nontender to palpation without rebound or guarding. EXTREMITIES: Negative for clubbing, cyanosis, no edema. DERMATOLOGIC: No rashes. MUSCULOSKELETAL: No joint effusion. NEUROLOGIC: No change in exam. MEDICATIONS: Reviewed. LABORATORY DATA: Has been reviewed. ASSESSMENT AND PLAN: 1. End-stage renal disease. continue hd in 1-2 days 2. Anemia. Monitor hemoglobin and hematocrit levels. Continue Epogen. 3. Mineral bone disorder, monitor calcium and phosphorus levels. 4. Gastritis. The patient is status post EGD. Continue proton pump inhibitor. 5. Sepsis. Etiology is likely secondary to pneumonia. The patient's blood cultures have been negative to date. Continue current antibiotic regimen. Follow up with infectious disease. 6. Acute respiratory failure, improved. 7. Encephalopathy, improved. 8. Diabetes. Continue current insulin regimen. 9. Coronary artery disease. Continue medical management. 10. Hypothyroidism. Continue Synthroid. 11. Hypertension. Continue current blood pressure regimen. 12. Dyslipidemia. Result Diagram: 05/09/1844 05/09/18 0944 Results 24hrs Laboratory Tests Test 05/10/18 12:11 05/10/18 17:23 05/10/18 20:04 05/11/18 07:45 Bedside Glucose 170 184 255 H 165 Exam/Review of Systems Exam Vitals Vital Signs Date Temp Pulse Resp B/P (MAP) Pulse Ox O2 O2 Flow FiO2 Time Delivery Rate 05/11/18 68 08:03 05/11/18 98.6 18 141/61 99 07:43 (87) 05/10/18 Room Air 13:50 05/09/18 21 17:18 05/07/18 2.0 09:15 Intake and Output 3/05/10/18 05/11/18 1515:00 23:00 07:00 IntakeIntake Total 640 ml 100 ml OutputOutput Total 1400 ml 1120 ml BalanceBalance -1400 ml -480 ml 100 ml Results Results 24hrs Laboratory Tests Test 05/10/18 12:11 05/10/18 17:23 05/10/18 20:04 05/11/18 07:45 Bedside Glucose 170 184 255 H 165 Medications Medication Current Medications IV Flush (NS 3 ml) 3 ml PER PROTOCOL IV ; Start 05/01/18 at 16:00 Insulin Aspart (Novolog Insulin Pen) NOVOLOG *MILD* ALGORITHM WITH MEALS BEDTIME SC Last administered on 05/11/18 07:55; Admin Dose 1 UNIT; Start 05/01/18 at 18:00 Ascorbic Acid (Vitamin C) 500 mg DAILY PO Last administered on 05/11/18 08:34; Admin Dose 500 MG; Start 05/02/18 at 09:00 Docusate Sodium (Colace) 200 mg HS PO Last administered on 05/10/18 20:06; Admin Dose 200 MG; Start 05/01/18 at 21:00 Ferrous Sulfate (Ferrous Sulfate (Ec)) 325 mg DAILY PO Last administered on 04/25 08:35; Admin Dose 325 MG; Start 05/02/18 at 09:00 Levothyroxine Sodium (Synthroid) 50 mcg BEFORE BREAKFAST PO Last administered on 05/11/18 06:09; Admin Dose 50 MCG; Start 05/02/18 at 07:00 Multivitamins Therapeutic (Theragran) 1 tab DAILY PO Last administered on 05/11/18 08:34; Admin Dose 1 TAB; Start 05/02/18 at 09:00 Sevelamer Carbonate (Renvela) 0.8 gm WITH MEALS PO Last administered on 05/10/18 17:32; Admin Dose 0.8 GM; Start 05/01/18 at 18:00 Epoetin Gato (Epogen (Esrd)) 10,000 units MoWeFr@17 SC Last administered on 05/07/18 17:10; Admin Dose 10,000 UNITS; Start 05/02/18 at 17:00; Status Hold Carvedilol (Coreg) 3.125 mg BID PO Last administered on 05/11/18 08:36; Admin Dose 3.125 MG; Start 05/03/18 at 15:00 Ondansetron HCl (Zofran Inj) 4 mg Q4H PRN IV NAUSEA AND/OR VOMITING Last administered on 05/04/18at 14:05; Admin Dose 4 MG; Start 05/04/18 at 14:00 Acetaminophen (Tylenol Tab) 500 mg Q6H PRN PO MILD PAIN(1-3)OR ELEVATED TEMP Last administered on 05/10/18at 20:08; Admin Dose 500 MG; Start 05/04/18 at 17:00 Miscellaneous Information 1 ea NOTE XX ; Start 05/06/18 at 15:30 Glucose (Glutose) 15 gm Q15M PRN PO DECREASED GLUCOSE; Start 05/06/18 at 15:30 Glucose (Glutose) 22.5 gm Q15M PRN PO DECREASED GLUCOSE; Start 05/06/18 at 15:30 Dextrose (D50w Syringe) 25 ml Q15M PRN IV DECREASED GLUCOSE; Start 05/06/18 at 15:30 Dextrose (D50w Syringe) 50 ml Q15M PRN IV DECREASED GLUCOSE; Start 05/06/18 at 15:30 Glucagon (Glucagen) 1 mg Q15M PRN IM DECREASED GLUCOSE; Start 05/06/18 at 15:30 Glucose (Glutose) 15 gm Q15M PRN BUCCAL DECREASED GLUCOSE; Start 05/06/18 at 15:30 Lactobacillus Acidophilus/ Rhamnosus (Culturelle) 1 cap BID PO Last administered on 05/11/18at 08:35; Admin Dose 1 CAP; Start 05/07/18 at 21:00 Atorvastatin Calcium (Lipitor) 20 mg QHS PO Last administered on 05/10/18at 20:06; Admin Dose 20 MG; Start 05/07/18 at 21:00 Vitamin B Complex/ Vitamin C (Berocca) 1 cap DAILY PO Last administered on 05/10/18 08:33; Admin Dose 1 CAP; Start 05/09/18 at 09:00 Pantoprazole (Protonix Tab) 40 mg BID@0600,1800 PO Last administered on 05/11/18 06:09; Admin Dose 40 MG; Start 05/07/18 at 18:00 Heparin Sodium (Porcine) (Heparin (1000 Units/ml)) 3,300 unit PRN PRN CATHETER Dialysis Last administered on 05/10/18at 13:44; Admin Dose 3,300 UNIT; Start 05/08/18 at 17:00 Levalbuterol (Xopenex Neb) 0.63 mg Q4H RESP THERAPY PRN HHN WHEEZING AND SOB; Start 05/09/18 at 20:00 WANDER SIMS DO May 11, 2018 11:11
--- NOTE | 2018-05-11 13:36 | CONS ---
Assessment/Plan Assessment/Plan Assessment/Plan (Daily) - fever, diaphoresis and chills associated with dialysis prior to admission and again on 05/04/2018, concerning for possible catheter related bloodstream infection. Another possibility is fever due to GIB - ESRD on HD via HD catheter on R chest wall. Pt does not remember how old the catheter is - Pyuria r/o UTI - GIB, scheduled for EGD on 05/05/2018 - DM - Hgb A1c 6.8% - CAD - LLL infiltrate vs. atelectasis on CXR upon admission but Pt does not have resp Sx - s/p type 2 CA vs. demand ischemia due to acute on chronic anemia - acute on chronic anemia - prostatic hypertrophy - hypothyroidism - s/p coronary artery bypass grafting - h/o previous CA - h/o diabetic wound of RLE - status post right BKA Recommendations: - Pending: Blood cultures from 05/05/18 (NGTD) - procalcitonin from 05/04 - 50.34 - repeat blood cx from HD catheter 05/06/18 (NGTD)- no growth after 24 hrs - Discontinue IV vancomycin (05/02/2018-) and renally dosed meropenem (05/05/2018-) and monitor off antibiotics. Management d/w patient and with Dr. Aviles in detail. Consultation Date/Type/Reason Admit Date/Time May 01, 2018 at 13:32 Initial Consult Date 05/04/18 Requesting Provider: YOSEF MILLER NP Date/Time of Note DATE: 05/11/18 TIME: 13:28 Exam/Review of Systems Exam Vitals Vital Signs Date Temp Pulse Resp B/P (MAP) Pulse Ox O2 O2 Flow FiO2 Time Delivery Rate 05/11/18 72 12:04 05/11/18 98.7 18 128/56 97 11:25 (80) 05/10/18 Room Air 13:50 05/09/18 21 17:18 05/07/18 2.0 09:15 Intake and Output 05/10/18 05/10/18 05/11/18 1515:00 23:00 07:00 IntakeIntake Total 640 ml 100 ml OutputOutput Total 1400 ml 1120 ml BalanceBalance -1400 ml -480 ml 100 ml Constitutional: alert Psych: nl mood/affect Head: atraumatic Eyes: nl lids, nl sclera Neck: non-tender Respiratory: diminished breath sounds Cardiovascular: nl pulses Gastrointestinal: soft, non-tender Musculoskeletal: muscle weakness Extremities: normal pulses Neurological: other Lymph: nontender Results Result Diagram: 05/09/1844 05/09/1844 Results 24hrs Laboratory Tests Test 05/10/18 17:23 05/10/18 20:04 05/11/18 07:45 05/11/18 11:28 Bedside Glucose 184 255 H 165 159 Medications Medication Current Medications IV Flush (NS 3 ml) 3 ml PER PROTOCOL IV ; Start 05/01/18 at 16:00 Insulin Aspart (Novolog Insulin Pen) NOVOLOG *MILD* ALGORITHM WITH MEALS BEDTIME SC Last administered on 05/11/18 11:42; Admin Dose 1 UNIT; Start 05/01/18 at 18:00 Ascorbic Acid (Vitamin C) 500 mg DAILY PO Last administered on 05/11/18 08:34; Admin Dose 500 MG; Start 05/02/18 at 09:00 Docusate Sodium (Colace) 200 mg HS PO Last administered on 05/10/18 20:06; Admin Dose 200 MG; Start 05/01/18 at 21:00 Ferrous Sulfate (Ferrous Sulfate (Ec)) 325 mg DAILY PO Last administered on 05/11/18 08:35; Admin Dose 325 MG; Start 05/02/18 at 09:00 Levothyroxine Sodium (Synthroid) 50 mcg BEFORE BREAKFAST PO Last administered on 05/11/18 06:09; Admin Dose 50 MCG; Start 05/02/18 at 07:00 Multivitamins Therapeutic (Theragran) 1 tab DAILY PO Last administered on 05/11/18 08:34; Admin Dose 1 TAB; Start 05/02/18 at 09:00 Sevelamer Carbonate (Renvela) 0.8 gm WITH MEALS PO Last administered on 05/10/18 17:32; Admin Dose 0.8 GM; Start 05/01/18 at 18:00 Epoetin Gato (Epogen (Esrd)) 10,000 units MoWeFr@17 SC Last administered on 05/07/18 17:10; Admin Dose 10,000 UNITS; Start 05/02/18 at 17:00; Status Hold Carvedilol (Coreg) 3.125 mg BID PO Last administered on 3/17/19at 08:36; Admin Dose 3.125 MG; Start 05/03/18 at 15:00 Ondansetron HCl (Zofran Inj) 4 mg Q4H PRN IV NAUSEA AND/OR VOMITING Last administered on 05/04/18at 14:05; Admin Dose 4 MG; Start 05/04/18 at 14:00 Acetaminophen (Tylenol Tab) 500 mg Q6H PRN PO MILD PAIN(1-3)OR ELEVATED TEMP Last administered on 05/10/18at 20:08; Admin Dose 500 MG; Start 05/04/18 at 17:00 Miscellaneous Information 1 ea NOTE XX ; Start 05/06/18 at 15:30 Glucose (Glutose) 15 gm Q15M PRN PO DECREASED GLUCOSE; Start 05/06/18 at 15:30 Glucose (Glutose) 22.5 gm Q15M PRN PO DECREASED GLUCOSE; Start 05/06/18 at 15:30 Dextrose (D50w Syringe) 25 ml Q15M PRN IV DECREASED GLUCOSE; Start 05/06/18 at 15:30 Dextrose (D50w Syringe) 50 ml Q15M PRN IV DECREASED GLUCOSE; Start 05/06/18 at 15:30 Glucagon (Glucagen) 1 mg Q15M PRN IM DECREASED GLUCOSE; Start 05/06/18 at 15:30 Glucose (Glutose) 15 gm Q15M PRN BUCCAL DECREASED GLUCOSE; Start 05/06/18 at 15:30 Lactobacillus Acidophilus/ Rhamnosus (Culturelle) 1 cap BID PO Last administered on 05/11/18at 08:35; Admin Dose 1 CAP; Start 05/07/18 at 21:00 Atorvastatin Calcium (Lipitor) 20 mg QHS PO Last administered on 05/10/18at 20:06; Admin Dose 20 MG; Start 05/07/18 at 21:00 Vitamin B Complex/ Vitamin C (Berocca) 1 cap DAILY PO Last administered on 05/10/18at 08:33; Admin Dose 1 CAP; Start 05/09/18 at 09:00 Pantoprazole (Protonix Tab) 40 mg BID@0600,1800 PO Last administered on 05/11/18 06:09; Admin Dose 40 MG; Start 05/07/18 at 18:00 Heparin Sodium (Porcine) (Heparin (1000 Units/ml)) 3,300 unit PRN PRN CATHETER Dialysis Last administered on 05/10/18at 13:44; Admin Dose 3,300 UNIT; Start 05/08/18 at 17:00 Levalbuterol (Xopenex Neb) 0.63 mg Q4H RESP THERAPY PRN HHN WHEEZING AND SOB; Start 05/09/18 at 20:00 ANALI ARORA May 11, 2018 13:36
--- NOTE | 2018-05-11 18:42 | DS ---
Date/Time of Note Date/Time of Note DATE: 05/11/18 TIME: 18:37 Discharge Summary Admission/Discharge Info Admit Date/Time May 01, 2018 at 13:32 Discharge Date/Time May 11, 2018 at 16:38 Patient Condition: Stable Consults Ryan Coleman Procedures CTA chest 05/01 IMPRESSION: 1. Normal CT pulmonary angiogram with no evidence of pulmonary artery embolism. 2. Atelectasis or pneumonia at the left lung base posteriorly and laterally. 3. Atherosclerosis. 4. Cardiomegaly. 5. Coronary artery calcification. 6. Previous median sternotomy. 7. Tunneled dialysis catheter in satisfactory position. 8. Otherwise unremarkable study. XR Chest. 05/09 FINDINGS: Postoperative changes from open thoracic surgery with sternotomy wires. Right-sided central venous catheter in satisfactory position. Mildly increased interstitial edema suggesting cardiopulmonary congestion. Similar appearance of left basilar infiltrates. No pleural effusion. No pneumothorax. Mild cardiomegaly unchanged. Vascular calcifications of the aorta are present compatible with atherosclerosis. IMPRESSION: Mildly increased interstitial edema suggesting cardiopulmonary congestion. Similar appearance of left basilar infiltrates. Hx of Present Illness 67-year-old gentleman transferred from [facility] due to fever and diaphoresis. Abnormal labs in the ER including troponin and hemoglobin. Hospital Course Hospitalist coverage/hospital course Admitted with fever diaphoresis. Patient had significant anemia and therefore required EGD GI eval. Gastritis seen no active bleed. Recommend to hold aspirin for 2 weeks total. Requested to follow-up with GI may be in 3-4 weeks. In terms of the fever diaphoresis there is suspicion of healthcare associated pneumonia. There was suspicion of line infection but his cultures remain negative. He does have a temporary axis which ideally should come out as soon is possible. Patient has finished his antibiotics and is now on observation therapy. May check chest x-ray in 2 weeks. Patient is stable and fit for discharge back to [facility]. He is tolerating diet no distress. He does have intermittent agitation anxiety. Due to his comorbidities recommend advanced care planning be reevaluated. A/P 1. Sepsis, severe due to hcap, stable finished antibiotics 2. HCAP stable finished antibiotics 3. Acute hypoxic respiratory failure multifactorial- #2 vs DD vs anemia assoc pul edema, stable improved, O2 as needed 4. Anemia, mod/ severe, possible acute blood loss, sp EGD: Gastritis, follow-up on path. outpt colonoscopy. No asa ~ 2 weeks 5. Abn troponin: Secondary CO vs primary NSTEMI. no chest pain/ arrhythmias, therefore continue medical management. 6. Chr CAD/CABG/ consider stress cath as indicated. Not a candidate for asa for a total of 2 weeks due to #4. 7. Failure to thrive, transfer to snf; needs advanced care planning reevaluated 8. Hypothyroidism 9. Type 2 diabetes 10. BPH 11. ESRD stable continue dialysis Saturday 12. Pulmonary hypertension? 13. Dialysis access right chest infection? appears not a source of infection at present. 14. Right BKA status 15. Nonadherence patient has some frustrating behavior. S: 05/05: events noted 05/06: No events 05/07 no distress. Tolerating diet. No active bleed. No fever. 05/08: Refused insulin sliding coverage. No fever dyspnea or diarrhea. 05/09: no distress 05/10: No distress 05/11: No events O: vss PE No pallor/ JVD Reg no m/r/g Dimin bilaterally; rt access c/d/i Bs+ nt nd no RRG No edema rt bka status Home Meds Active Scripts Pantoprazole* (Pantoprazole*) 40 Mg Tablet., 40 MG PO BID@0600,1800 for 14 Days Prov:ROSA FARAH MD 05/10/18 Lactobacillus Rhamnosus GG (Culturelle) 1 Each Capsule, 1 CAP PO BID for 10 Days, CAP Prov:ROSA FARAH MD 05/10/18 Carvedilol* (Carvedilol*) 3.125 Mg Tablet, 3.125 MG PO BID for 1 Day, TAB Prov:ROSA FARAH MD 05/10/18 Reported Medications Polyvinyl Alcohol (Tears Again) 15 Ml Drops, 15 ML OP DAILY PRN for DRY EYES, BOTTLE 05/01/18 Ondansetron Hcl* (Zofran*) 4 Mg Tab, 4 MG PO Q6H PRN for NAUSEA AND OR VOMITING, TAB 05/01/18 Ascorbic Acid* (Vitamin C*) 500 Mg Capsule.sa, 500 MG PO DAILY, CAP 05/01/18 Acetaminophen* (Acetaminophen*) 325 Mg Tablet, 325 MG PO Q4H PRN for PAIN AND OR ELEVATED TEMP, #30 TAB 05/01/18 Levothyroxine Sodium* (Levoxyl*) 50 Mcg Tablet, 50 MCG PO BEFORE BREAKFAST, #30 TAB 05/01/18 Sevelamer Carbonate* (Renvela*) 800 Mg Tablet, 0.8 GM PO WITH MEALS, TAB 05/01/18 Multivitamins* (Theragran*) 1 Tab Tab, 1 TAB PO DAILY, TAB 05/01/18 Atorvastatin Calcium* (Atorvastatin Calcium*) 20 Mg Tablet, 20 MG PO QHS, #30 TAB 05/01/18 Atorvastatin Calcium* (Atorvastatin Calcium*) 20 Mg Tablet, 20 MG PO QHS, #30 TAB 05/01/18 Insulin Glargine* (Lantus*) 100 Unit/Ml Soln, 10 UNIT SC QHS, #1 VIAL 05/01/18 Ferrous Sulfate* (Ferrous Sulfate*) 325 Mg Tabec, 325 MG PO DAILY, TAB 05/01/18 Cranberry Extract (Cranberry) 425 Mg Capsule, 425 MG PO DAILY, CAP 05/01/18 Docusate Sodium* (Docusate Sodium*) 100 Mg Capsule, 200 MG PO HS, #60 CAP 05/01/18 Cyanocobalamin/FA/Pyridoxine (B Complex-Folic Acid Tablet) 1 Each Tablet, 1 TAB PO DAILY, TAB 05/01/18 Discontinued Reported Medications Acetaminophen* (Acetaminophen*) 500 MG Extra Strength Tablet, 1000 MG PO Q4H PRN for MILD PAIN(1-3)OR ELEVATED TEMP, TAB 05/01/18 Lisinopril* (Lisinopril*) 20 Mg Tablet, 20 MG PO DAILY for MON,WED,FRI,SUN., #30 TAB 05/01/18 Carvedilol* (Coreg*) 6.25 Mg Tablet, 6.25 MG PO BID for E,GUERO,SAT, #60 TAB 05/01/18 Aspirin* (Aspirin* Chew) 81 Mg Tab.chew, 81 MG PO DAILY, TAB.CHEW 05/01/18 Follow-up Plan dialysis as before Dr Davis 1wk Dr Coleman 1-2wks Dr Aviles 2-4wks Primary Care Provider Not On Staff Doctor Time spent on discharge: > 30 minutes Pending Labs Laboratory Tests Test 05/10/18 20:04 05/11/18 07:45 05/11/18 11:28 Bedside Glucose 255 mg/dL (70-220) 165 mg/dL (70-220) 159 mg/dL (70-220) ROSA FARAH MD May 11, 2018 18:42
== END 2018-05-11 16:38 | DRG 871 ==
LOC: E/R 11:26 → 6WM 13:32 → EDBD 13:32
PROVIDERS: ADMIT Internal Medicine; ATTEND Internal Medicine
PROC: 30233N1 Transfusion of Nonautologous Red Blood Cells into Peripheral Vein, Percutaneous Approach (ICD-10-PCS; 2018-05-01)
PROC: 5A1D70Z Performance of Urinary Filtration, Intermittent, Less than 6 Hours Per Day (ICD-10-PCS; 2018-05-02)
PROC: 0DB68ZX Excision of Stomach, Via Natural or Artificial Opening Endoscopic, Diagnostic (ICD-10-PCS; principal; 2018-05-05 11:00)
DX: A41.9 Sepsis, unspecified organism (principal); I21.4 Non-ST elevation (NSTEMI) myocardial infarction; J18.9 Pneumonia, unspecified organism; J96.01 Acute respiratory failure with hypoxia; N18.6 End stage renal disease; G92 Toxic encephalopathy; I21.A1 Myocardial infarction type 2; I13.11 Hypertensive heart and chronic kidney disease without heart failure, with stage 5 chronic kidney disease, or end stage renal disease; D62 Acute posthemorrhagic anemia; N39.0 Urinary tract infection, site not specified; K29.70 Gastritis, unspecified, without bleeding; E11.22 Type 2 diabetes mellitus with diabetic chronic kidney disease; I25.10 Atherosclerotic heart disease of native coronary artery without angina pectoris; E03.9 Hypothyroidism, unspecified; E78.5 Hyperlipidemia, unspecified; E87.6 Hypokalemia; N40.0 Benign prostatic hyperplasia without lower urinary tract symptoms; I27.20 Pulmonary hypertension, unspecified; I25.2 Old myocardial infarction; R62.7 Adult failure to thrive; Z89.511 Acquired absence of right leg below knee; Z95.1 Presence of aortocoronary bypass graft; Z99.2 Dependence on renal dialysis; Z68.24 Body mass index [BMI] 24.0-24.9, adult; Z91.19 Patient's noncompliance with other medical treatment and regimen
CPT/HCPCS: 36415; 36430; 70450; 71045; 71275; 74018; 80048; 80053; 80061; 80202; 81001; 82150; 82550; 82553; 82728; 82962; 83036; 83540; 83605; 83690; 83735; 84100; 84145; 84153; 84154; 84439; 84443; 84484; 85014; 85018; 85025; 85610; 85730; 86644; 86706; 86850; 86900; 86901; 86920; 87040; 87081; 87086; 87340; 87400; 88305; 88312; 90935; 93005; 93306; 94640; 94664; 96374; 96375; 97161; C9113; J0692; J1644; J1815; J2185; J2405; J3010; J3370; J7030; J7040; P9016; Q4081; Q9967